=== PATIENT | female | born 1985 | race Caucasian/White ===

== ENCOUNTER 2021-02-06 10:22 | Emergency (ER) | payer OTHER, SELFPAY ==
--- NOTE | ~2021-02-06 | CT_ITS ---
EXAMINATION: CT HEAD WITHOUT CONTRAST CLINICAL INFORMATION: Headache, hypertension. COMPARISON: None TECHNIQUE: Contiguous axial imaging was performed from the skull base to vertex without intravenous administration of contrast. This CT examination was performed using dose optimization techniques as appropriate, variously including the following: *Automated exposure control *Adjustment of mA and/or kV according to patient size (this includes techniques or standardized protocols for targeted exams where dose is matched to indication/reason for exam; i.e. extremities or head) *Use of iterative reconstruction technique DLP: 676 mGy-cm FINDINGS: There is no evidence of acute intracranial hemorrhage or territorial infarction. No abnormal mass effect or midline shift is seen. Quevedo to white matter differentiation is well preserved. No extra-axial fluid collections are identified. There is dense pineal gland calcification The ventricles are normal in size. There is no abnormal attenuation within the brain parenchyma. The osseous structures and soft tissues are normal. The mastoid air cells and visualized portions of the paranasal sinuses are well aerated. CT/CT head/brain wo con IMPRESSION: No acute intracranial process seen.
--- NOTE | 2021-02-06 10:28 | ED.GENADULT ---
HPI - General Adult General Chief complaint: General Medical <Omlan Horton NP - Last Filed: 02/16/21 20:44> Stated complaint: HBP <Olman Horton NP - Last Filed: 02/16/21 20:44> Time Seen by Provider: 02/06/21 10:28 <Olman Horton NP - Last Filed: 02/16/21 20:44> Source: patient <Olman Horton NP - Last Filed: 02/16/21 20:44> Mode of arrival: ambulatory <Olman Horton NP - Last Filed: 02/16/21 20:44> Limitations: no limitations <Olman Horton NP - Last Filed: 02/16/21 20:44> History of Present Illness HPI narrative: With history of hypertension on several hypertension medications presenting with constellation symptoms including states she has had left eyelid has been swollen or past 1 day with slight redness also having some headache checked her blood pressure and her blood pressure was elevated at 1 70/130 today at work as well as she reports that she has had some increased anxiety recently due to family stressors and she has been moving to the area recently. She denies any fever or chills. No neck pain. No fall or injury., no worse headache, symptoms gradual. <Olman Horton NP - Last Filed: 02/16/21 20:44> Onset (ago): day(s) <Olman Horton NP - Last Filed: 02/16/21 20:44> Location: head <Olman Horton NP - Last Filed: 02/16/21 20:44> Radiation: non-radiation <Olman Horton NP - Last Filed: 02/16/21 20:44> Severity: moderate <Olman Horton NP - Last Filed: 02/16/21 20:44> Relieving factors: none <Olman Horton NP - Last Filed: 02/16/21 20:44> Exacerbating factors: none <Olman Horton NP - Last Filed: 02/16/21 20:44> Treatments prior to arrival: none <Olman Horton NP - Last Filed: 02/16/21 20:44> Related Data Home medications: Home Medications Medication Instructions Recorded Confirmed amlodipine 1 tab PO DAILY 02/06/21 02/06/21 losartan 1 tab PO DAILY 02/06/21 02/06/21 omeprazole 1 cap PO DAILY 02/06/21 02/06/21 Previous Rx's Medication Instructions Recorded cephalexin 500 mg PO BID 7 Days #14 cap 02/06/21 erythromycin 0.5 inch OPHTHALMIC (EYE) BID #1 g 02/06/21 <Olman Horton NP - Last Filed: 02/16/21 20:44> Allergies/adverse reactions: Allergies Allergy/AdvReac Type Severity Reaction Status Date / Time adhesive tape Allergy Rash Verified 02/06/21 10:35 latex Allergy Rash Verified 02/06/21 10:35 <Olman Horton NP - Last Filed: 02/16/21 20:44> Review of Systems Review of Systems: Constitutional: No Weight loss, No Fever, No Chills, No Night Sweats, No Fatigue, No Malaise ENT/Mouth: No Hearing loss, No Ear Pain, No Nasal Congestion, No Sinus Pain, No Hoarseness, No sore throat, No Rhinorrhea, No Swallowing Difficulty Eyes: No Eye Pain, + led Swelling, No Redness, No Foreign Body, No Discharge, No Vision Changes Cardiovascular: No Chest Pain, No SOB, No Dyspnea on Exertion, No Orthopnea, No Edema, No Palpitations Respiratory: No Cough, No Sputum, No Wheezing, No Smoke Exposure, No Dyspnea Gastrointestinal: No Nausea, No Vomiting, No Diarrhea, No Constipation, No abdominal Pain, No Hematochezia, No Melena Genitourinary: no irregular bleeding, No Dysuria, No Urinary Frequency, No Hematuria, No Urinary Incontinence, No Urgency, No Flank Pain, No Urinary Flow Changes, No Hesitancy Musculoskeletal: No joint pain, No Myalgias, No Joint Swelling Skin: No Skin Lesions, No rash Neuro: No Weakness, No Numbness, No Paresthesias, No Loss of Consciousness, No Dizziness, + Headache Psych: + Anxiety/Panic, No Depression, No SI/HI/AH/VH Heme/Lymph: No Bruising, No Bleeding,No Lymphadenopathy Endocrine: No Polyuria, No Polydipsia, No Temperature Intolerance <Olman Horton NP - Last Filed: 02/16/21 20:44> Yes all other systems are reviewed and are negative <Olman Horton NP - Last Filed: 02/16/21 20:44> [facility] Past Medical History Medical History: Medical History (Updated 02/07/21 @ 00:01 by Anjelica Kamara) HTN (hypertension) <Olman Horton NP - Last Filed: 02/16/21 20:44> Surgical History: Surgical History (Updated 02/06/21 @ 10:32 by David Bradford) H/O: hysterectomy <Olman Horton NP - Last Filed: 02/16/21 20:44> Social History Social History: Social History Smoked in Last 30 Days: No Use of substances other than those prescribed or required for medical reasons: No Advance Directives: No Advance Directives Information Provided: No <Olman Horton NP - Last Filed: 02/16/21 20:44> Physical Exam Vital Signs: Vital Signs: Last Vital Signs Temp 98.6 F 02/06/21 10:30 Pulse 70 02/06/21 12:05 Resp 16 02/06/21 11:47 BP 180/112 H 02/06/21 12:05 Pulse Ox 100 02/06/21 10:30 Body Mass Index 23.8 Reviewed <Olman Horton NP - Last Filed: 02/16/21 20:44> Vital Signs: Last Vital Signs Temp 98.6 F 02/06/21 10:30 Pulse 70 02/06/21 12:05 Resp 16 02/06/21 11:47 BP 180/112 H 02/06/21 12:05 Pulse Ox 100 02/06/21 10:30 Body Mass Index 23.8 <KARENA Vigil - Last Filed: 02/10/21 18:33> Const: General: cooperative, healthy appearing and anxious; No acute distress or intoxicated appearing <Olman Horton NP - Last Filed: 02/16/21 20:44> Nutritional Appearance: average body habitus <Olman Horton NP - Last Filed: 02/16/21 20:44> Orientation/consciousness: patient oriented x3 <Olman Horton NP - Last Filed: 02/16/21 20:44> HENMT: Head: Yes normal to inspection <Olman Horton NP - Last Filed: 02/16/21 20:44> Ears: hearing grossly normal bilaterally <Olman Horton NP - Last Filed: 02/16/21 20:44> Eyes: General: appearance normal, both eyes and all related structures <[facility] Last Filed: 02/16/21 20:44> Visual Granado: normal visual granado by confrontation <[facility] Last Filed: 02/16/21 20:44> Eyelids: Yes eyelid abnormality (Left very small hordeolum to the upper lid) <[facility] Last Filed: 02/16/21 20:44> Neck: Neck: Yes normal visual inspection, No positive Brudzinski's sign, No positive Kernig's sign and No tender <[facility] Last Filed: 02/16/21 20:44> Thyroid: Thyroid normal <[facility] Last Filed: 02/16/21 20:44> Chest: Chest palpation & inspection: normal inspection of the chest <[facility] Last Filed: 02/16/21 20:44> Resp: Effort & Inspection: normal respiratory effort <[facility] Last Filed: 02/16/21 20:44> Auscultation: clear to auscultation bilaterally <[facility] Last Filed: 02/16/21 20:44> Cardio: Jugular venous distension: no JVD <[facility] Last Filed: 02/16/21 20:44> Rhythm: regular rhythm <[facility] Last Filed: 02/16/21 20:44> Heart sounds: S1 normal heart sound present and S2 normal heart sound present <[facility] Last Filed: 02/16/21 20:44> GI: Inspection: Yes normal to inspection <[facility] Last Filed: 02/16/21 20:44> Percussion: Yes normal to percussion <[facility] - Last Filed: 02/16/21 20:44> Auscultation: normal bowel sounds <[facility] Last Filed: 02/16/21 20:44> : General: Yes no CVA tenderness <[facility] Last Filed: 02/16/21 20:44> Back/Spine/Pelvis: Back: no CVA tenderness <Olman Horton NP - Last Filed: 02/16/21 20:44> Skin: General skin exam: no rashes or lesions noted <Olman Horton NP - Last Filed: 02/16/21 20:44> Neuro: General: patient oriented x3 <Olman Horton NP - Last Filed: 02/16/21 20:44> Extrem: General: Yes normal to inspection <Olman Horton NP - Last Filed: 02/16/21 20:44> Course Reevaluation(s) Reevaluation #1: Labs reviewed headache resolved after Tylenol and lorazepam did require 1 low dose of Lopressor. UA positive for nitrate with WBC and positive bacteria will go ahead and treat this. She will take her blood pressure medications and will keep a blood pressure log and follow up closely with her GP. Otherwise head CT negative well nontoxic appearing. Much calmer now sister at bedside declined the need to speak to any social workers here. No SI or HI. Stable for discharge. <Olman Horton NP - Last Filed: 02/16/21 20:44> Medical Decision Making Lab Data Result diagrams: : 02/06/21 11:05 02/06/21 11:05 <Olman Horton NP - Last Filed: 02/16/21 20:44> Labs: Lab Results 02/06/21 02/06/21 02/06/21 Range/Units 11:05 11:05 11:05 WBC 7.3 (4.8-10.8) X10*3/uL RBC 5.16 (4.20-5.50) X10*6/uL Hgb 12.3 (12.0-16.0) g/dl Hct 40.6 (37-47) % MCV 78.7 L (80-98) fL MCH 23.8 L (27.0-33.0) pg MCHC 30.3 L (31.0-35.0) g/dl RDW 16.8 H (11.0-16.0) % Plt Count 457 H (160-400) X10*3/uL MPV 9.8 (9.4-12.3) fL Immature Gran % (Auto) 0.1 (0.0-0.4) % Neut % (Auto) 62.9 (45-73) % Lymph % (Auto) 28.6 (20-40) % Warrick % (Auto) 7.5 (2-11) % Eos % (Auto) 0.5 (0-4) % Baso % (Auto) 0.4 (0-2) % Lymph # (Auto) 2.1 (1.2-4.9) X10*3/uL Warrick # (Auto) 0.6 (0.1-1.2) X10*3/uL Eos # (Auto) 0.0 (0.0-0.4) X10*3/uL Baso # (Auto) 0.0 (0.0-0.2) X10*3/uL Abs Immat Gran (auto) 0.01 (0.00-0.03) X10*3/uL Absolute Neuts (auto) 4.6 (2.0-8.3) X10*3/uL Absolute Nucleated RBC 0.000 (0.0-0.012) X10*3/uL Nucleated RBC % (auto) 0.0 (0.0-0.2) /100WBC PT 12.4 (10.8-13.0) SEC INR 1.0 (0.9-1.1) APTT 35.0 (24.1-38.0) SEC Sodium 139 (135-145) mmol/L Potassium 4.3 (3.3-5.1) mmol/L Chloride 101 (96-108) mmol/L Carbon Dioxide 27 (22-29) mmol/L Anion Gap 15 (12-20) BUN 12 (9-16) mg/dL Creatinine 0.70 (0.5-1.4) mg/dL Estim Creat Clear Calc 122.4 Estimated GFR > 60 Random Glucose 98 (60-115) mg/dL Calcium 9.9 (8.4-10.2) mg/dL Total Bilirubin 0.5 (0.0-1.0) mg/dL AST 13 (5-31) U/L ALT 9 (0-31) U/L Alkaline Phosphatase 75 (39-117) U/L Total Protein 8.6 H (6.5-8.0) g/dL Albumin 5.2 H (3.5-5.0) g/dL Urine Color Urine Appearance Urine pH (5.0-8.0) Ur Specific Mobile (1.005-1.025) Urine Protein (NEG-TRACE) MG/DL Urine Glucose (UA) (NEG) MG/DL Urine Ketones (NEG) MG/DL Urine Blood (NEG) Urine Nitrite (NEG) Ur Leukocyte Esterase (NEG) Urine RBC (0) /HPF Urine WBC (0-4) /HPF Ur Squamous Epith Cells /LPF Urine Bacteria /LPF Urine Mucus /LPF Urine Test (NEGATIVE) 02/06/21 02/06/21 Range/Units 11:05 11:05 WBC (4.8-10.8) X10*3/uL RBC (4.20-5.50) X10*6/uL Hgb (12.0-16.0) g/dl Hct (37-47) % MCV (80-98) fL MCH (27.0-33.0) pg MCHC (31.0-35.0) g/dl RDW (11.0-16.0) % Plt Count (160-400) X10*3/uL MPV (9.4-12.3) fL Immature Gran % (Auto) (0.0-0.4) % Neut % (Auto) (45-73) % Lymph % (Auto) (20-40) % Warrick % (Auto) (2-11) % Eos % (Auto) (0-4) % Baso % (Auto) (0-2) % Lymph # (Auto) (1.2-4.9) X10*3/uL Warrick # (Auto) (0.1-1.2) X10*3/uL Eos # (Auto) (0.0-0.4) X10*3/uL Baso # (Auto) (0.0-0.2) X10*3/uL Abs Immat Gran (auto) (0.00-0.03) X10*3/uL Absolute Neuts (auto) (2.0-8.3) X10*3/uL Absolute Nucleated RBC (0.0-0.012) X10*3/uL Nucleated RBC % (auto) (0.0-0.2) /100WBC PT (10.8-13.0) SEC INR (0.9-1.1) APTT (24.1-38.0) SEC Sodium (135-145) mmol/L Potassium (3.3-5.1) mmol/L Chloride (96-108) mmol/L Carbon Dioxide (22-29) mmol/L Anion Gap (12-20) BUN (9-16) mg/dL Creatinine (0.5-1.4) mg/dL Estim Creat Clear Calc Estimated GFR Random Glucose (60-115) mg/dL Calcium (8.4-10.2) mg/dL Total Bilirubin (0.0-1.0) mg/dL AST (5-31) U/L ALT (0-31) U/L Alkaline Phosphatase (39-117) U/L Total Protein (6.5-8.0) g/dL Albumin (3.5-5.0) g/dL Urine Color YELLOW Urine Appearance CLOUDY Urine pH 7.0 (5.0-8.0) Ur Specific Mobile 1.020 (1.005-1.025) Urine Protein NEG (NEG-TRACE) MG/DL Urine Glucose (UA) NEG (NEG) MG/DL Urine Ketones NEG (NEG) MG/DL Urine Blood TRACE (NEG) Urine Nitrite POS H (NEG) Ur Leukocyte Esterase NEG (NEG) Urine RBC 0-2 (0) /HPF Urine WBC 5-9 H (0-4) /HPF Ur Squamous Epith Cells 2+ /LPF Urine Bacteria 3+ /LPF Urine Mucus 2+ /LPF Urine Test NEGATIVE (NEGATIVE) <Olman Horton NP - Last Filed: 02/16/21 20:44> Lab Results 02/06/21 02/06/21 02/06/21 Range/Units 11:05 11:05 11:05 WBC 7.3 (4.8-10.8) X10*3/uL RBC 5.16 (4.20-5.50) X10*6/uL Hgb 12.3 (12.0-16.0) g/dl Hct 40.6 (37-47) % MCV 78.7 L (80-98) fL MCH 23.8 L (27.0-33.0) pg MCHC 30.3 L (31.0-35.0) g/dl RDW 16.8 H (11.0-16.0) % Plt Count 457 H (160-400) X10*3/uL MPV 9.8 (9.4-12.3) fL Immature Gran % (Auto) 0.1 (0.0-0.4) % Neut % (Auto) 62.9 (45-73) % Lymph % (Auto) 28.6 (20-40) % Warrick % (Auto) 7.5 (2-11) % Eos % (Auto) 0.5 (0-4) % Baso % (Auto) 0.4 (0-2) % Lymph # (Auto) 2.1 (1.2-4.9) X10*3/uL Warrick # (Auto) 0.6 (0.1-1.2) X10*3/uL Eos # (Auto) 0.0 (0.0-0.4) X10*3/uL Baso # (Auto) 0.0 (0.0-0.2) X10*3/uL Abs Immat Gran (auto) 0.01 (0.00-0.03) X10*3/uL Absolute Neuts (auto) 4.6 (2.0-8.3) X10*3/uL Absolute Nucleated RBC 0.000 (0.0-0.012) X10*3/uL Nucleated RBC % (auto) 0.0 (0.0-0.2) /100WBC PT 12.4 (10.8-13.0) SEC INR 1.0 (0.9-1.1) APTT 35.0 (24.1-38.0) SEC Sodium 139 (135-145) mmol/L Potassium 4.3 (3.3-5.1) mmol/L Chloride 101 (96-108) mmol/L Carbon Dioxide 27 (22-29) mmol/L Anion Gap 15 (12-20) BUN 12 (9-16) mg/dL Creatinine 0.70 (0.5-1.4) mg/dL Estim Creat Clear Calc 122.4 Estimated GFR > 60 Random Glucose 98 (60-115) mg/dL Calcium 9.9 (8.4-10.2) mg/dL Total Bilirubin 0.5 (0.0-1.0) mg/dL AST 13 (5-31) U/L ALT 9 (0-31) U/L Alkaline Phosphatase 75 (39-117) U/L Total Protein 8.6 H (6.5-8.0) g/dL Albumin 5.2 H (3.5-5.0) g/dL Urine Color Urine Appearance Urine pH (5.0-8.0) Ur Specific Mobile (1.005-1.025) Urine Protein (NEG-TRACE) MG/DL Urine Glucose (UA) (NEG) MG/DL Urine Ketones (NEG) MG/DL Urine Blood (NEG) Urine Nitrite (NEG) Ur Leukocyte Esterase (NEG) Urine RBC (0) /HPF Urine WBC (0-4) /HPF Ur Squamous Epith Cells /LPF Urine Bacteria /LPF Urine Mucus /LPF Urine Test (NEGATIVE) 02/06/21 02/06/21 Range/Units 11:05 11:05 WBC (4.8-10.8) X10*3/uL RBC (4.20-5.50) X10*6/uL Hgb (12.0-16.0) g/dl Hct (37-47) % MCV (80-98) fL MCH (27.0-33.0) pg MCHC (31.0-35.0) g/dl RDW (11.0-16.0) % Plt Count (160-400) X10*3/uL MPV (9.4-12.3) fL Immature Gran % (Auto) (0.0-0.4) % Neut % (Auto) (45-73) % Lymph % (Auto) (20-40) % Warrick % (Auto) (2-11) % Eos % (Auto) (0-4) % Baso % (Auto) (0-2) % Lymph # (Auto) (1.2-4.9) X10*3/uL Warrick # (Auto) (0.1-1.2) X10*3/uL Eos # (Auto) (0.0-0.4) X10*3/uL Baso # (Auto) (0.0-0.2) X10*3/uL Abs Immat Gran (auto) (0.00-0.03) X10*3/uL Absolute Neuts (auto) (2.0-8.3) X10*3/uL Absolute Nucleated RBC (0.0-0.012) X10*3/uL Nucleated RBC % (auto) (0.0-0.2) /100WBC PT (10.8-13.0) SEC INR (0.9-1.1) APTT (24.1-38.0) SEC Sodium (135-145) mmol/L Potassium (3.3-5.1) mmol/L Chloride (96-108) mmol/L Carbon Dioxide (22-29) mmol/L Anion Gap (12-20) BUN (9-16) mg/dL Creatinine (0.5-1.4) mg/dL Estim Creat Clear Calc Estimated GFR Random Glucose (60-115) mg/dL Calcium (8.4-10.2) mg/dL Total Bilirubin (0.0-1.0) mg/dL AST (5-31) U/L ALT (0-31) U/L Alkaline Phosphatase (39-117) U/L Total Protein (6.5-8.0) g/dL Albumin (3.5-5.0) g/dL Urine Color YELLOW Urine Appearance CLOUDY Urine pH 7.0 (5.0-8.0) Ur Specific Mobile 1.020 (1.005-1.025) Urine Protein NEG (NEG-TRACE) MG/DL Urine Glucose (UA) NEG (NEG) MG/DL Urine Ketones NEG (NEG) MG/DL Urine Blood TRACE (NEG) Urine Nitrite POS H (NEG) Ur Leukocyte Esterase NEG (NEG) Urine RBC 0-2 (0) /HPF Urine WBC 5-9 H (0-4) /HPF Ur Squamous Epith Cells 2+ /LPF Urine Bacteria 3+ /LPF Urine Mucus 2+ /LPF Urine Test NEGATIVE (NEGATIVE) <KARENA Vigil - Last Filed: 02/10/21 18:33> Imaging Data Head CT: Radiologist's impression: [address] [id number] Scan ReportSigned Patient: Rosa Valentine DMR#: [id number]: [id number]:[id number]/Sex: 35 / FADM Date: 02/06/21Loc: [address]: Ordering Physician: Olman Horton NP Date of Service: 02/06/21 Procedure(s): CT head/brain wo con Accession Number(s): [id number] cc: Olman Horton NP~ EXAMINATION: CT HEAD WITHOUT CONTRAST CLINICAL INFORMATION: Headache, hypertension. COMPARISON: None TECHNIQUE: Contiguous axial imaging was performed from the skull base to vertex without intravenous administration of contrast. This CT examination was performed using dose optimization techniques as appropriate, variously including the following: *Automated exposure control *Adjustment of mA and/or kV according to patient size (this includes techniques or standardized protocols for targeted exams where dose is matched to indication/reason for exam; i.e. extremities or head) *Use of iterative reconstruction technique DLP: 676 mGy-cm FINDINGS: There is no evidence of acute intracranial hemorrhage or territorial infarction. No abnormal mass effect or midline shift is seen. Quevedo to white matter differentiation is well preserved. No extra-axial fluid collections are identified. There is dense pineal gland calcification The ventricles are normal in size. There is no abnormal attenuation within the brain parenchyma. The osseous structures and soft tissues are normal. The mastoid air cells and visualized portions of the paranasal sinuses are well aerated. CT/CT head/brain wo con IMPRESSION: No acute intracranial process seen. Dictated By:RAFFI PEPPER MDSigned By:<Electronically signed by RAFFI PEPPER MD in OV>02/06/21 1138 DD/ 1041TD/TT: Inventory Specialist Manager: MICHAEL <Olman Horton NP - Last Filed: 02/16/21 20:44> Discharge Plan Discharge Clinical Impression: Hypertension, Headache, External hordeolum, Anxiety, UTI (urinary tract infection) <Olman Horton NP - Last Filed: 02/16/21 20:44> Patient Disposition: Home, Self-Care <Olman Horton NP - Last Filed: 02/16/21 20:44> Instructions: Hypertension (ED), Anxiolysis in Adults (ED) <Olman Horton NP - Last Filed: 02/16/21 20:44> Additional Instructions: Home care as instructed Return if any concerns or worsening symptoms Keep a blood pressure log Follow-up with her primary care doctor in 2-3 days for recheck Return if any concerns or worsening symptoms Thank you <Olman Horton NP - Last Filed: 02/16/21 20:44> Prescriptions: New cephalexin 500 mg capsule 500 mg PO BID 7 Days Qty: 14 RF: 0 erythromycin 5 mg/gram (0.5 %) ointment 0.5 inch ophthalmic (eye) BID Qty: 1 RF: 1 No Action amlodipine 10 mg tablet 1 tab PO DAILY RF: 0 omeprazole 20 mg capsule,delayed release(DR/EC) 1 cap PO DAILY RF: 0 losartan 100 mg tablet 1 tab PO DAILY RF: 0 <Olman Horton NP - Last Filed: 02/16/21 20:44> Referrals: Physician,None [Primary Care Provider] - 2 days (Your primary care doctor) <Olman Horton NP - Last Filed: 02/16/21 20:44> Stand Alone Forms: Work/School Release <Olman Horton NP - Last Filed: 02/16/21 20:44> Interventions: ED Discharge Assessment Last Done: 02/06/21 14:12 <Olman Horton NP - Last Filed: 02/16/21 20:44> Discharge Date/Time: 02/06/21 14:12 <Olman Horton NP - Last Filed: 02/16/21 20:44>
[2021-02-06 10:30] VITALS: BP 212/105; PULSE 76; RESP 16; TEMP 37; O2SAT 100; BMI 23.8
[2021-02-06 11:10] LABS: MANUAL DIFF FLAG NO
[2021-02-06] MEDS: Acetaminophen 325 MG TABLET 650 MG PO (11:12)
[2021-02-06 11:13] LABS: Basophils Percent Auto 0.4 % (0-2); Eosinophils Percent Auto 0.5 % (0-4); Hematocrit 40.6 % (37-47); Hemoglobin 12.3 g/dl (12.0-16.0); Imm Gran Abs Auto 0.01 X10*3/uL (0.00-0.03); Imm Gran Pct Auto 0.1 % (0.0-0.4); Lymphocytes Absolute Auto 2.1 X10*3/uL (1.2-4.9); Lymphocytes Percent Auto 28.6 % (20-40); Mean Corpuscular HGB Conc 30.3 g/dl (31.0-35.0); Mean Corpuscular Hemoglobin 23.8 pg (27.0-33.0); Mean Corpuscular Volume 78.7 fL (80-98); Mean Platelet Volume 9.8 fL (9.4-12.3); Monocytes Absolute Auto 0.6 X10*3/uL (0.1-1.2); Monocytes Percent Auto 7.5 % (2-11); Neutrophils Absolute Auto 4.6 X10*3/uL (2.0-8.3); Neutrophils Percent Auto 62.9 % (45-73); Platelet Count 457 X10*3/uL (160-400); Red Blood Count 5.16 X10*6/uL (4.20-5.50); Red Cell Distribution Width 16.8 % (11.0-16.0); White Blood Count 7.3 X10*3/uL (4.8-10.8)
[2021-02-06] MEDS: LORazepam 2 MG/ML VIAL 0.5 MG IVPUSH (11:13)
[2021-02-06 11:17] LABS: Glucose Urine UA NEG (NEG); Leukocyte Esterase Urine NEG (NEG); Nitrite Urine POS (NEG); UACC Culture Trigger YES; Urine Blood TRACE (NEG); Urine Ketones NEG (NEG); Urine Protein NEG (NEG-TRACE)
[2021-02-06 11:18] LABS: Appearance Urine CLOUDY; Color Urine YELLOW; Prothrombin Time 12.4 SEC (10.8-13.0)
[2021-02-06 11:19] LABS: UPreg QC Valid YES; Urine Pregnancy NEGATIVE (NEGATIVE)
[2021-02-06 11:27] LABS: Bacteria Urine 3+ /LPF; Mucus Urine 2+ /LPF; RBC Urine 0-2 /HPF (0); Squamous Epithelial Cell Urine 2+ /LPF; UACC CULT YES
[2021-02-06 11:35] LABS: Alanine Aminotransferase 9 U/L (0-31); Albumin Level 5.2 g/dL (3.5-5.0); Alkaline Phosphatase 75 U/L (39-117); Anion Gap 15 (12-20); Aspartate Amino Transferase 13 U/L (5-31); Bilirubin Total 0.5 mg/dL (0.0-1.0); Blood Urea Nitrogen 12 mg/dL (9-16); Calcium 9.9 mg/dL (8.4-10.2); Carbon Dioxide 27 mmol/L (22-29); Chloride 101 mmol/L (96-108); Creatinine Clr Calc Pharmacy 122.4; Estimated Glomerular Filt Rate > 60; Glucose Random 98 mg/dL (60-115); Potassium 4.3 mmol/L (3.3-5.1); Sodium 139 mmol/L (135-145); Total Protein 8.6 g/dL (6.5-8.0)
[2021-02-06 11:47] VITALS: BP 180/112; PULSE 70; RESP 16
[2021-02-06 12:05] VITALS: BP 180/112; PULSE 70
[2021-02-06] MEDS: ondansetron HCL 4 MG/2 ML VIAL IVPUSH (12:05)
[2021-02-06] MEDS: Labetalol HCL 100 MG/20 ML VIAL IVPUSH (12:05)
--- NOTE | 2021-02-06 12:14 | PC.NURSE ---
Pt states headache has improved, but now states she has mild nausea. BP remains elevated at 180/112. Olman, [employer] made aware, and provided orders. Pt medicated per emar.
== END 2021-02-06 14:12 | disposition home or self-care (01) ==
PROVIDERS: Nurse Practitioner Primary Care; Emergency Provider Emergency Medicine
DX: R51.9 Headache, unspecified (principal); I10 Essential (primary) hypertension; N39.0 Urinary tract infection, site not specified; H00.019 Hordeolum externum unspecified eye, unspecified eyelid; F41.9 Anxiety disorder, unspecified
CPT/HCPCS: 36415; 70450; 80053; 81001; 81025; 85025; 85610; 85730; 87086; 87088; 87186; 96374; 96375; 99284; J2060; J2405

== ENCOUNTER 2021-05-01 08:10 | Emergency (ER) | payer MEDICAID, SELFPAY ==
--- NOTE | ~2021-05-01 | US_ITS ---
EXAMINATION: US VENOUS WITH DOPPLER UPPER EXTREMITY, LEFT CLINICAL INFORMATION: Axillary swelling status post Pfizer vaccine on 04/28/2021. COMPARISON: None TECHNIQUE: Ultrasound of the upper extremity is performed using compression sonography and color and pulse Doppler flow with assessment of augmentation of flow. There is also imaging and Doppler assessment of the jugular and subclavian veins. Spectral analysis with color-flow imaging is performed. FINDINGS: Respiratory variation, normal compression, and augmented flow are noted throughout the upper extremity including the axillary, brachial, cubital, and radial and ulnar veins. There is normal flow in the internal jugular and subclavian veins. There is no visible deep or superficial thrombophlebitis Axillary lymph nodes are present, the largest measuring 1.9 x 0.9 x 2.6 cm. They have normal morphology with fatty magaly. If the patient's symptoms progress, a followup ultrasound in 5-7 days might be of value to exclude proximal propagation from a nonvisualized distal arm vein. US/US venous duplex UE LT IMPRESSION: No DVT demonstrated in the left upper extremity. Mildly prominent left axillary lymph nodes.
[2021-05-01 08:34] VITALS: BP 167/87; PULSE 79; RESP 14; TEMP 36.6; O2SAT 100; BMI 26.6
--- NOTE | 2021-05-01 09:34 | ED_ITS ---
HPI - Extremity Problem General Chief complaint: Extremity Injury, Upper Stated complaint: abscess Time Seen by Provider: 05/01/21 08:34 Source: patient Mode of arrival: ambulatory Limitations: no limitations History of Present Illness HPI Narrative: Patient presents to ED swelling in left axillary/lump for the past 3 days. Patient received phizer vaccine on Wednesday and then noticed large swelling mass and left axillary that began on Wednesday. Patient denies any chest pain or shortness of breath. Patient states no fever or chills. Related Data Home Medications Medication Instructions Recorded Confirmed amlodipine 1 tab PO DAILY 02/06/21 02/06/21 losartan 1 tab PO DAILY 02/06/21 02/06/21 omeprazole 1 cap PO DAILY 02/06/21 02/06/21 Previous Rx's Medication Instructions Recorded cephalexin 500 mg PO BID 7 Days #14 cap 02/06/21 erythromycin 0.5 inch OPHTHALMIC (EYE) BID #1 g 02/06/21 Allergies Allergy/AdvReac Type Severity Reaction Status Date / Time adhesive tape Allergy Rash Verified 02/06/21 10:35 latex Allergy Rash Verified 02/06/21 10:35 Review of Systems Review of Systems: Yes all other systems are reviewed and are negative Constitutional: Constitutional: Reports as per HPI and Reports no additional constitutional complaints Eyes: Eyes: Reports as per HPI and Reports no additional eye complaints ENT: Reports system reviewed and no additional complaints, except as documented and Reports as per HPI Cardiovascular: Cardiovascular: Reports as per HPI and Reports no additional cardiovascular complaints Respiratory: Respiratory: Reports as per HPI and Reports no additional respiratory complaints Gastrointestinal: Gastrointestinal: Reports as per HPI and Reports no additional gastrointestinal complaints Genitourinary: Genitourinary: Reports no additional female genitourinary complaints and Reports as per HPI Musculoskeletal: Musculoskeletal: Reports no additional musculoskeletal complaints and Reports as per HPI Comments: Left axillary swelling Neurologic: Reports system reviewed and no additional complaints, except as documented and Reports as per HPI Psychiatric: Psychiatric: Reports no additional psychiatric complaints and Reports as per HPI PMF Past Medical History Medical History (Updated 05/01/21 @ 11:33 by KARENA Pink) HTN (hypertension) Surgical History (Updated 02/06/21 @ 10:32 by Daivd Bradford) H/O: hysterectomy Social History Social History Advance Directives: No Advance Directives Information Provided: Yes Patient : No Physical Exam Vital Signs: Vital Signs: Last Vital Signs Temp 97.9 F 05/01/21 08:34 Pulse 79 05/01/21 08:34 Resp 14 05/01/21 08:34 BP 167/87 H 05/01/21 08:34 Pulse Ox 100 05/01/21 08:34 Body Mass Index 26.6 Const: General: cooperative, healthy appearing, comfortable, no acute distress, well developed, alert, awake and Physically active Orientation/consciousness: patient oriented x3 HENMT: Head: Yes normal to inspection, Yes No palpable skull fracture present, Yes normocephalic, Yes atraumatic and No abrasion Eyes: General: appearance normal, both eyes and all related structures Neck: Neck: Yes normal visual inspection, Yes full ROM, Yes no lymphadenopathy, Yes no meningeal signs, Yes trachea midline, Yes supple and No tender Chest: Chest palpation & inspection: normal inspection of the chest and normal palpation of entire chest wall Resp: Effort & Inspection: normal respiratory effort and able to speak in complete sentences Cardio: Jugular venous distension: no JVD Heart sounds: S1 normal heart sound present and S2 normal heart sound present GI: Inspection: Yes normal to inspection and No abdominal wall ecchymosis Palpation (GI): Soft to palpation, not firm, nontender, no guarding and not rigid : General: No CVA tenderness and Yes no CVA tenderness Back/Spine/Pelvis: Back: no CVA tenderness, No CVA tenderness and No back tenderness Skin: General skin exam: no rashes or lesions noted and elasticity normal Neuro: General: patient oriented x3, gait normal, no meningeal signs and CN's II-XI intact bilaterally Cranial nerves: Yes CN's II-XII intact bilaterally Extrem: Other: Left upper extremity; positive for large swollen mass in left axillary that is non erythematoous, soft, and non fluctuant. Mildly tender. Negative for hard mass. Self extremity negative for swelling or redness. Palpable pulses intact. Neuro/motor exam intact. Bedside ultrasound was performed at area of swelling and negative for cobblestone to indicate cellulitis and negative for pus collection to indicate abscess Psych: Appearance: grossly normal and well kempt Course Course Course Narrative: Not suspecting abscess. Maybe lymphadenopathy although soft and not hard. Due to large size will make sure patient is not having no blood clot after having phizer injection. Patient sent for ultrasound. Reevaluation(s) Reevaluation #1: Ultrasound negative for blood clot. Ultrasound confirms enlarged lymph nodes. Diagnosis lymphadenopathy from COVID vaccine Time: 11:31 MDM - Extremity (Nontraumatic) MDM Narrative Medical decision making narrative: Axillary lymphadenopathy Discharge Plan Discharge Clinical Impression: Axillary adenopathy Patient Disposition: Home, Self-Care Instructions: Lymphadenopathy (ED) Additional Instructions: Ultrasound came back negative for blood clot and left upper extremity. Ultrasound positive for enlarged lymph nodes and axillary. Axillary lymphadenopathy caused by COVID 19 vaccine. This is a common side effect. Return to the ED for left upper extremity swelling, redness, red streaks, chest pain, shortness of breath, warmth of upper extremity, colonies of upper extremity, bluish black discoloration of fingers, or any other concerning symptoms. Please follow-up with PCP Prescriptions: No Action amlodipine 10 mg tablet 1 tab PO DAILY RF: 0 omeprazole 20 mg capsule,delayed release(DR/EC) 1 cap PO DAILY RF: 0 losartan 100 mg tablet 1 tab PO DAILY RF: 0 cephalexin 500 mg capsule 500 mg PO BID 7 Days Qty: 14 RF: 0 erythromycin 5 mg/gram (0.5 %) ointment 0.5 inch ophthalmic (eye) BID Qty: 1 RF: 1 Stand Alone Forms: Work/School Release Print Language: Singaporean
== END 2021-05-01 11:39 | disposition home or self-care (01) ==
PROVIDERS: Emergency Provider Emergency Medicine
DX: R59.0 Localized enlarged lymph nodes (principal); I10 Essential (primary) hypertension; Z79.899 Other long term (current) drug therapy
CPT/HCPCS: 93971; 99283; 99284

== ENCOUNTER 2021-12-29 15:29 | Emergency (ER) | payer MEDICAID, SELFPAY ==
--- NOTE | ~2021-12-29 | CT_ITS ---
EXAMINATION: CT ABDOMEN AND PELVIS WITHOUT CONTRAST CLINICAL INFORMATION: Left flank pain. Kidney stone. COMPARISON: None TECHNIQUE: Multidetector volumetric imaging was performed from the superior aspect of the liver through the pubic symphysis. Sagittal and coronal reformatted images were obtained on the technologist's workstation. This CT examination was performed using dose optimization techniques as appropriate, variously including the following: *Automated exposure control *Adjustment of mA and/or kV according to patient size (this includes techniques or standardized protocols for targeted exams where dose is matched to indication/reason for exam; i.e. extremities or head) *Use of iterative reconstruction technique DLP: 582 mGy-cm FINDINGS: LUNG BASES: The visualized lung bases are unremarkable. LIVER, GALLBLADDER, AND BILIARY TREE: Mild hepatomegaly. Right lobe liver measures 22 cm superior-inferior. There is no focal liver lesion. The liver shape is normal. The contour of the liver is smooth. There is no bile duct dilatation. The gallbladder is unremarkable with no evidence of radiopaque gallstones, gallbladder wall thickening, or obvious pericholecystic inflammatory changes. PANCREAS: Unremarkable. SPLEEN: Unremarkable. ADRENAL GLANDS: Unremarkable. KIDNEYS AND URETERS: Bilateral renal stones. There are multiple stones in each kidney. Most the stones are small in the 1 to 3 mm size range. The right kidney there are at least 9 stones the largest in the midpole measuring 5 mm. In the left kidney there are at least 10 stones. Largest stone measures 7 mm is in the lower pole.. There is no hydronephrosis. There are no ureteral calculi. Both kidneys are normal in size and contour with normal cortical thickness. No edema around the kidneys or the collecting system of either kidney. BLADDER: Unremarkable. GASTROINTESTINAL TRACT: The small and large bowel are unremarkable. The appendix is unremarkable. ABDOMINAL WALL: No significant hernia is appreciated. LYMPH NODES: Normal. VASCULAR: Unremarkable. PELVIC VISCERA: Unremarkable. OSSEOUS STRUCTURES: Unremarkable. CT/CT abdomen pelvis wo con IMPRESSION: 1. Bilateral nonobstructive renal stones. There are no ureteral stones. There is no hydronephrosis. No bladder calculus. 2. Mild hepatomegaly. No focal liver lesion. Fleischner guidelines were followed.
[2021-12-29 15:38] VITALS: BP 189/120; PULSE 86; RESP 16; TEMP 36.8; O2SAT 99; BMI 23.9
[2021-12-29 16:34] LABS: MANUAL DIFF FLAG NO
[2021-12-29 16:36] LABS: Basophils Percent Auto 0.3 % (0-2); Eosinophils Absolute Auto 0.1 X10*3/uL (0.0-0.4); Hematocrit 39.7 % (37.0-47.0); Hemoglobin 13.2 g/dl (12.0-16.0); Imm Gran Abs Auto 0.01 X10*3/uL (0.00-0.03); Imm Gran Pct Auto 0.1 % (0.0-0.4); Lymphocytes Absolute Auto 2.2 X10*3/uL (1.2-4.9); Lymphocytes Percent Auto 33.4 % (20-40); Mean Corpuscular HGB Conc 33.2 g/dl (31.0-35.0); Mean Corpuscular Volume 87.3 fL (80.0-98.0); Mean Platelet Volume 9.8 fL (9.4-12.3); Monocytes Absolute Auto 0.4 X10*3/uL (0.1-1.2); Monocytes Percent Auto 6.6 % (2-11); Neutrophils Absolute Auto 3.9 x10*3/uL (2.0-8.3); Neutrophils Percent Auto 58.6 % (45-73); Platelet Count 358 X10*3/uL (160-400); Red Blood Count 4.55 X10*6/uL (4.20-5.50); Red Cell Distribution Width 12.9 % (11.0-16.0); White Blood Count 6.7 X10*3/uL (4.8-10.8)
[2021-12-29 16:53] LABS: Alanine Aminotransferase 15 U/L (0-31); Albumin Level 4.8 g/dL (3.5-5.0); Alkaline Phosphatase 67 U/L (39-117); Anion Gap 11 (12-20); Aspartate Amino Transferase 12 U/L (5-31); Bilirubin Total 0.3 mg/dL (0.0-1.0); Blood Urea Nitrogen 15 mg/dL (9-16); Calcium 9.7 mg/dL (8.4-10.2); Carbon Dioxide 26 mmol/L (22-29); Chloride 105 mmol/L (96-108); Creatinine Clr Calc Pharmacy 103.9; Estimated Glomerular Filt Rate > 60; Glucose Random 95 mg/dL (60-115); Potassium 3.9 mmol/L (3.3-5.1); Sodium 138 mmol/L (135-145); Total Protein 8.1 g/dL (6.5-8.0)
--- NOTE | 2021-12-29 20:45 | ED.GENADULT ---
HPI - General Adult General Chief complaint: General Medical Stated complaint: left side pain Time Seen by Provider: 12/29/21 20:45 Source: patient Mode of arrival: ambulatory Limitations: no limitations History of Present Illness HPI narrative: Patient with no history of significant abdominal problems notice all of a sudden pain in the left flank region in the left upper abdomen since afternoon today associated with nausea, vomited 1 time no fever no chills no urine symptoms no diarrhea patient never had similar pain in the past Related Data Home Medications Medication Instructions Recorded Confirmed amlodipine 10 mg tablet 1 tab PO DAILY 02/06/21 02/06/21 losartan 100 mg tablet 1 tab PO DAILY 02/06/21 02/06/21 omeprazole 20 mg capsule,delayed 1 cap PO DAILY 02/06/21 02/06/21 release Previous Rx's Medication Instructions Recorded cephalexin 500 mg capsule 500 mg PO BID 7 Days #14 cap 02/06/21 erythromycin 5 mg/gram (0.5 %) eye 0.5 inch OPHTHALMIC (EYE) BID #1 g 02/06/21 ointment tramadol 50 mg tablet 50 mg PO Q6H PRN #20 tab 12/29/21 Allergies Allergy/AdvReac Type Severity Reaction Status Date / Time adhesive tape Allergy Rash Verified 02/06/21 10:35 latex Allergy Rash Verified 02/06/21 10:35 Review of Systems Review of Systems: Yes all other systems are reviewed and are negative [facility] Past Medical History Medical History HTN (hypertension) Surgical History H/O: hysterectomy Social History Social History Advance Directives: No Advance Directives Information Provided: Yes Physical Exam ED Vital Signs: Vital Signs - 24 hr 12/29/21 15:38 12/29/21 22:21 Temperature 98.2 F 97.0 F Pulse Rate 86 65 Respiratory Rate 16 16 Blood Pressure 189/120 H 142/85 H Pulse Oximetry 99 96 BMI result Body Mass Index 23.9 Appearance: Alert. Oriented X3. Mild distress ENT: Pharynx normal. Oral Mucosa moist Neck: Normal inspection. Neck supple. CVS: Normal heart rate and rhythm. Pulses normal. Respiratory: No respiratory distress. Equal air entry bilateral, no wheezing/rales/rhonchi Abdomen: Soft , mild tenderness left upper quadrant Bowel sounds are present, no mass palpable, L CVA tenderness + Skin: Skin warm and dry. Normal skin color. Normal skin turgor. Extremities: No lower extremity edema. No calf tenderness Neuro: Oriented X 3. Medical Decision Making MDM Narrative Medical decision making narrative: Patient with left renal colic workup is negative except CT scan showing multiple stones bilateral likely patient passed a stone. At this time patient is pain-free feeling much better will discharge patient home Lab Data Lab results reviewed: Yes I reviewed the patient's lab results. Result diagrams: 12/29/21 16:31 12/29/21 16:32 Labs: Lab Results 12/29/21 12/29/21 12/29/21 Range/Units 16:31 16:32 21:42 WBC 6.7 (4.8-10.8) X10*3/uL RBC 4.55 (4.20-5.50) X10*6/uL Hgb 13.2 (12.0-16.0) g/dl Hct 39.7 (37.0-47.0) % MCV 87.3 (80.0-98.0) fL MCH 29.0 (27.0-33.0) pg MCHC 33.2 (31.0-35.0) g/dl RDW 12.9 (11.0-16.0) % Plt Count 358 (160-400) X10*3/uL MPV 9.8 (9.4-12.3) fL Immature Gran % (Auto) 0.1 (0.0-0.4) % Neut % (Auto) 58.6 (45-73) % Lymph % (Auto) 33.4 (20-40) % [place] % (Auto) 6.6 (2-11) % Eos % (Auto) 1.0 (0-4) % Baso % (Auto) 0.3 (0-2) % Lymph # (Auto) 2.2 (1.2-4.9) X10*3/uL [place] # (Auto) 0.4 (0.1-1.2) X10*3/uL Eos # (Auto) 0.1 (0.0-0.4) X10*3/uL Baso # (Auto) 0.0 (0.0-0.2) X10*3/uL Abs Immat Gran (auto) 0.01 (0.00-0.03) X10*3/uL Absolute Neuts (auto) 3.9 (2.0-8.3) x10*3/uL Absolute Nucleated RBC 0.000 (0.0-0.012) X10*3/uL Nucleated RBC % (auto) 0.0 (0.0-0.2) /100WBC Sodium 138 (135-145) mmol/L Potassium 3.9 (3.3-5.1) mmol/L Chloride 105 (96-108) mmol/L Carbon Dioxide 26 (22-29) mmol/L Anion Gap 11 L (12-20) BUN 15 (9-16) mg/dL Creatinine 0.79 (0.5-1.4) mg/dL Estim Creat Clear Calc 103.9 Estimated GFR > 60 Random Glucose 95 (60-115) mg/dL Calcium 9.7 (8.4-10.2) mg/dL Total Bilirubin 0.3 (0.0-1.0) mg/dL AST 12 (5-31) U/L ALT 15 (0-31) U/L Alkaline Phosphatase 67 (39-117) U/L Total Protein 8.1 H (6.5-8.0) g/dL Albumin 4.8 (3.5-5.0) g/dL Urine Color YELLOW Urine Appearance HAZY Urine pH 6.0 (5.0-8.0) Ur Specific Earle >= 1.030 H (1.005-1.025) Urine Protein TRACE (NEG-TRACE) MG/DL Urine Glucose (UA) NEG (NEG) MG/DL Urine Ketones NEG (NEG) MG/DL Urine Blood NEG (NEG) Urine Nitrite NEG (NEG) Ur Leukocyte Esterase NEG (NEG) Discharge Plan Discharge Clinical Impression: Renal colic on left side Patient Disposition: Home, Self-Care Instructions: Renal Colic (ED) Additional Instructions: Drink plenty of fluids Pain medication as advised Follow-up with urologist Diet as advised Prescriptions: New tramadol 50 mg tablet 50 mg PO Q6H PRN (Reason: pain) Qty: 20 0RF No Action amlodipine 10 mg tablet 1 tab PO DAILY 0RF omeprazole 20 mg capsule,delayed release(DR/EC) 1 cap PO DAILY 0RF losartan 100 mg tablet 1 tab PO DAILY 0RF cephalexin 500 mg capsule 500 mg PO BID 7 Days Qty: 14 0RF erythromycin 5 mg/gram (0.5 %) ointment 0.5 inch ophthalmic (eye) BID Qty: 1 1RF Referrals: Fletcher Goldstein MD [Physician] - 1 week
[2021-12-29] MEDS: Morphine Sulfate 4 MG/ML CARTRIDGE IVPUSH (21:45)
[2021-12-29] MEDS: 0.9 % Sodium Chloride 1,000 ML 999 ML IV (21:45)
[2021-12-29] MEDS: ondansetron HCL 4 MG/2 ML VIAL IVPUSH (21:46)
[2021-12-29 21:57] LABS: Appearance Urine HAZY; Color Urine YELLOW; Glucose Urine UA NEG (NEG); Leukocyte Esterase Urine NEG (NEG); Nitrite Urine NEG (NEG); Specific Gravity - Urine >= 1.030 (1.005-1.025); Urine Blood NEG (NEG); Urine Ketones NEG (NEG); Urine Protein TRACE MG/DL (NEG-TRACE)
[2021-12-29 22:21] VITALS: BP 142/85; PULSE 65; RESP 16; TEMP 36.1; O2SAT 96
== END 2021-12-29 23:18 | disposition home or self-care (01) ==
PROVIDERS: Emergency Provider Internal Medicine; PCP Nurse Practitioner
DX: N23 Unspecified renal colic (principal); I10 Essential (primary) hypertension
CPT/HCPCS: 36415; 74176; 80053; 81003; 85025; 96361; 96374; 96375; 99283; 99284; J2270; J2405

== ENCOUNTER 2022-12-18 14:57 | Outpatient (REF) | payer OTHER, MEDICAID, SELFPAY ==
--- NOTE | ~2022-12-18 | US_ITS ---
EXAMINATION: US PELVIS, LIMITED/FOLLOW UP CLINICAL INFORMATION: Palpable lumps, prior abdominoplasty. COMPARISON: CT abdomen pelvis 12/29/2021 TECHNIQUE: Grayscale color transabdominal views of the soft tissues of the pelvis were obtained. FINDINGS: Few bilateral inguinal nodes not pathologically enlarged which maintain normal hilar architecture measuring up to 0.8 cm short axis on the left and 0.5 cm short axis on the right. Corresponding to the area of palpable concern in the right groin soft tissues is a 2.7 x 3.7 x 1.9 cm heterogeneous appearing soft tissue and in the left groin is a similar symmetric 3.1 x 3.5 x 2.1 cm heterogeneous region of soft tissue. US/US pelvic limited IMPRESSION: There is a relatively symmetric heterogeneous appearance of the soft tissue in the bilateral inguinal canals corresponding to the areas of palpable concern, of uncertain etiology. Given history of prior abdominoplasty considerations could include sequelae of postsurgical change, or underlying infiltrative infectious/inflammatory soft tissue process. A discrete mass is considered less likely, however correlation with clinical symptoms and exam is recommended and if further workup is desired a contrast-enhanced MR pelvis could be considered. No lymphadenopathy.
== END 2022-12-18 14:58 | disposition home or self-care (01) ==
LOC: HO.US 14:57
PROVIDERS: PCP Registered Nurse; Visit Provider Registered Nurse
DX: R59.0 Localized enlarged lymph nodes (principal)
CPT/HCPCS: 76857

== ENCOUNTER 2023-04-20 09:56 | Outpatient (REF) | payer OTHER, MEDICAID, SELFPAY ==
--- NOTE | ~2023-04-20 | US_ITS ---
EXAMINATION: US ABDOMEN COMPLETE CLINICAL INFORMATION: Chronic abdominal pain. Evaluate for gallstones. COMPARISON: CT abdomen and pelvis 12/29/2021. TECHNIQUE: Real-time imaging of the abdominal viscera. FINDINGS: PANCREAS: Normal. ABDOMINAL AORTA: The proximal, mid, and distal segments are normal in caliber. INFERIOR VENA CAVA: Visualized portions are normal. LIVER: The liver is enlarged measuring 21 cm in greatest length and demonstrates borderline increased echogenicity suggesting hepatic steatosis. The liver contour is normal. No focal hepatic lesion. There is no intrahepatic biliary duct dilatation seen. GALLBLADDER: A large polypoid mass is present in the gallbladder lobular in appearance measuring 2.3 x 1.4 x 1.3 cm. A vascular pedicle can be seen. The gallbladder is physiologically distended without evidence of stones, sludge or pericholecystic fluid. COMMON BILE DUCT: Normal in caliber measuring 0.3 cm in diameter. RIGHT KIDNEY: The renal pyramids are hyperechoic suggesting medullary sponge kidney. Multiple echogenic foci are seen in the medullary regions, the largest measuring 4 mm. These correspond with stones seen on the 12/29/2021 CT scan. No hydronephrosis or focal parenchymal lesions. The kidney measures 11.3 cm in maximum dimension. LEFT KIDNEY: The renal pyramids are hyperechoic suggesting medullary sponge kidney. Multiple echogenic foci are seen in the medullary regions the largest measuring 5 mm. These correspond with stones seen on the 12/29/2021 CT scan. No hydronephrosis or focal parenchymal lesions. The kidney measures 10.9 cm in maximum dimension. SPLEEN: Normal. The spleen measures 10.7 cm in maximum dimension. FREE FLUID: None. US/US abdomen complete IMPRESSION: 1. Enlarged fatty liver. 2. Large polypoid mass in the gallbladder. Consider surgical consult. 3. Question medullary sponge kidney with multiple bilateral nonobstructing stones.
== END 2023-04-20 09:57 | disposition home or self-care (01) ==
LOC: HO.HMGCX 09:56
PROVIDERS: PCP Registered Nurse; Visit Provider Registered Nurse
DX: R10.84 Generalized abdominal pain (principal)
CPT/HCPCS: 76700

== ENCOUNTER → 2023-05-12 08:29 | Outpatient (BNVA) | payer OTHER, MEDICAID, SELFPAY | PROVIDERS: PCP Registered Nurse; Visit Provider Urology ==

== ENCOUNTER → 2023-05-19 10:35 | Outpatient (BNVA) | payer OTHER, MEDICAID, SELFPAY | PROVIDERS: PCP Registered Nurse; Referring Provider Registered Nurse; Visit Provider Surgery ==

== ENCOUNTER 2023-06-03 07:05 | Day surgery (SDC) | payer OTHER, MEDICAID, SELFPAY ==
--- NOTE | 2023-06-02 09:29 | HO.ANESPROP2 ---
Documented by User: Grace De NP 06/02/23 09:50 HPI - Anesthesia Eval Consult details Narrative: 38yo F for Cholecystectomy Laparoscopic, poss open PMFSH Active Problems Active Problems: All Active Problems (Updated 05/12/23 @ 09:25 by Chris Crabtree MD) Gallbladder polyp (Acute) Medullary sponge kidney (Acute) Bilateral kidney stones (Acute) Past Medical History Medical History HTN (hypertension) Surgical History Surgical History (Updated 06/03/23 @ 07:14 by Mabel Key) H/O: hysterectomy History of abdominoplasty Social History Social History (Updated 05/19/23 @ 10:43 by KE Olson) Alcohol intake: current Alcohol intake frequency: holidays/special occasions only Patient Tobacco Use Status: Never used Tobacco Use of substances other than those prescribed or required for medical reasons: No Are you DNR?: No Advance Directives: No Advance Directives Information Provided: Yes Meds Allergies Allergy/AdvReac Type Severity Reaction Status Date / Time adhesive tape Allergy Intermediate Rash Verified 06/03/23 07:14 latex Allergy Intermediate Rash Verified 06/03/23 07:14 Home Medications Medication Instructions Recorded Confirmed Last Taken Type amlodipine 10 mg tablet 1 tab PO DAILY 02/06/21 06/03/23 06/03/23 History omeprazole 20 mg capsule,delayed 1 cap PO DAILY 02/06/21 06/03/23 Unknown History release olmesartan 20 mg tablet 20 mg PO QAM 06/03/23 06/03/23 Unknown History Exam Exam Date and Time: June 02, [id number] Pertinent Lab Results Pertinent Lab Results: CBC and BMP 11/2022 from outside facility WNL Assessment and Plan Assessment Anesthesia Assessment: Chart Reviewed Documented by User: Raffi Francis MD 06/03/23 07:46 PMFSH Past Medical History Medical History HTN (hypertension) Family History Family history of problems with anesthesia: No Surgical History Surgical History (Updated 06/03/23 @ 07:14 by Mabel Key) H/O: hysterectomy History of abdominoplasty History of Problems with Anesthesia: No Social History Social History (Updated 05/19/23 @ 10:43 by KE Olson) Alcohol intake: current Alcohol intake frequency: holidays/special occasions only Patient Tobacco Use Status: Never used Tobacco Use of substances other than those prescribed or required for medical reasons: No Are you DNR?: No Advance Directives: No Advance Directives Information Provided: Yes Meds Allergies Allergy/AdvReac Type Severity Reaction Status Date / Time adhesive tape Allergy Intermediate Rash Verified 06/03/23 07:14 latex Allergy Intermediate Rash Verified 06/03/23 07:14 Home Medications Medication Instructions Recorded Confirmed Last Taken Type amlodipine 10 mg tablet 1 tab PO DAILY 02/06/21 06/03/23 06/03/23 History omeprazole 20 mg capsule,delayed 1 cap PO DAILY 02/06/21 06/03/23 Unknown History release olmesartan 20 mg tablet 20 mg PO QAM 06/03/23 06/03/23 Unknown History Exam Airway Mallampati Class: II TM Dist: >3cm Heart: rrr Lungs: cta Assessment and Plan Assessment Anesthesia Assessment: Anesthesia Plan Discussed Final Anesthetic Review Family History of Problems with Anesthesia: No History of Problems with Anesthesia: No NPO: Yes ASA Class: II Final Preanesthetic Review: No Changes in Pt Med Stat, Meds/Allgs Chart Reviewed, Consent Obtained/Reviewed and Anes Risks/Benef Reviewed Patient Risk: Low Procedure Risk: Intermediate Anesthetic Plan Anesthetic Plan: GA and Agree w/ Assess. and Plan Disposition: Standard PACU
--- NOTE | 2023-06-02 10:52 | MHC.SHP ---
Pre-Procedural Eval Section A Date of Service: 06/02/23 The patient is an INPATIENT: No Changes since office visit: No Cold of Flu in the past 2 weeks, No New Medical Problems, No Changes in Medication and No Patient answered all questions The History & Physical has been completed within 30 days and I have reviewed it.: Yes Section B Chief Complaint: Cholesterolosis of gallbladder Allergies: Allergies Allergy/AdvReac Type Severity Reaction Status Date / Time adhesive tape Allergy Rash Verified 05/19/23 10:42 latex Allergy Rash Verified 05/19/23 10:42 Plan I have reviewed the history and physical and performed a pertinent physical examination on my patient. No changes have occurred unless specified. Time Spent With Patient Time: Total time managing care of this patient today ____ minutes.
[2023-06-03] VITALS (15 sets, daily range): BP systolic 117–154; BP diastolic 71–93; PULSE 61–72; RESP 12–18; TEMP 36.2–37; O2SAT 95–100; BMI 27.6
[2023-06-03] MEDS: Lactated Ringers 1,000 ML 100 ML IVCONT (07:37)
--- NOTE | 2023-06-03 09:28 | W.PM.OPN ---
Operative Note Operative Note Date of Service: 06/03/23 Narrative: Preoperative diagnosis: [] Biliary colic, gallbladder polyp Postop diagnosis: [] Same Procedure [] laparoscopic cholecystectomy Surgeon: [] Major Supervisor Machine Workers: [] KARENA Pittman Type of Anesthesia: [] General Indication for surgery: [] Gastric and omental soft adhesions to the gallbladder. Findings: [] Patient brought to the operating room, placed on operative table in supine position, after adequate level of general anesthesia was induced, the patient's abdomen was prepped and draped in usual sterile fashion. Using a supraumbilical curvilinear incision, Rocha technique was used to insufflate the abdominal cavity to 15 mm of CO2. Upper midline and right subcostal ports were placed under direct laparoscopic view, and the patient was placed in reverse Trendelenburg position, and tilted to the left. Soft omental and gastric adhesions were swept off the gallbladder. Its hilum was approached with the cystic artery and cystic duct were each identified, circumferentially skeletonized, traced directly into the gallbladder, and critical view obtained. Each was clipped proximally x2, distally x1 and transected. Gallbladder was then cauterized from the gallbladder fossa using Bovie. Specimen was placed in an Endo-Catch bag, a retrieved through the umbilical port. Abdominal cavity was irrigated secured hemostasis. All ports were removed under direct laparoscopic view. Wounds were closed in the following manner; umbilical wound is fascia reapproximated using interrupted 0 Vicryl sutures. Skin wounds were closed using subcuticular 4-0 Vicryl sutures followed by Steri-Strips and sterile dressings. Was retreated 0.5% Marcaine at completion. Sponge, needle, and instrument counts reported to be correct. Patient tolerated the procedure well and emerged anesthesia stable condition. EBL minimal
[2023-06-03] MEDS: fentaNYL citrate/PF 100 MCG/2 ML VIAL 25 MCG IVPUSH ×4 (09:50→10:05)
[2023-06-03] MEDS: oxyCODONE HCl Immed Release 5 MG TABLET PO (09:50)
[2023-06-03] MEDS: HYDROmorphone HCl 0.5 MG/0.5 ML SYRINGE 0.25 MG IVPUSH (10:09)
== END 2023-06-03 12:29 | disposition home or self-care (01) ==
PROVIDERS: PCP Registered Nurse; Visit Provider Surgery
PROC: 0FT44ZZ Resection of Gallbladder, Percutaneous Endoscopic Approach (ICD-10-PCS; CPT 47562; principal; 2023-06-03 09:10)
DX: D13.5 Benign neoplasm of extrahepatic bile ducts (principal); K81.1 Chronic cholecystitis; I10 Essential (primary) hypertension
CPT/HCPCS: 47562; 88304; J0131; J0690; J1100; J1170; J2250; J2405; J2550; J2795; J3010

== ENCOUNTER → 2023-06-03 07:05 | Outpatient (BNV) | payer OTHER, MEDICAID, SELFPAY | PROVIDERS: PCP Registered Nurse; Visit Provider Surgery | DX: K80.50 Calculus of bile duct without cholangitis or cholecystitis without obstruction (principal) | CPT/HCPCS: 47562 ==

== ENCOUNTER 2023-06-11 10:53 | Outpatient (AMB) | payer OTHER, MEDICAID, SELFPAY ==
[2023-06-11 10:58] VITALS: BP 172/98; PULSE 88
--- NOTE | 2023-06-11 10:58 | MHC.OFFVIS ---
Intake Vital Signs 06/11/23 10:58 Weight 188 lb BP 172/98 H Blood Pressure Location Rt brachial Position Sitting Pulse 88 Intake Visit Reasons: S/P lap amarjit Intake Note: Patient here s/p lap amarjit. Reports incisions healing well. Noted mild bleeding for the first couple of days but since subsided. Takes rx pain meds as needed. Firer Low Pressure Required: No Accompanied by: Self / Same As Patient Allergies adhesive tape Allergy (Intermediate, Verified 06/11/23 11:00) Rash latex Allergy (Intermediate, Verified 06/11/23 11:00) Rash HPI HPI Comments History of Present Illness Details Patient presents with a friend for follow-up. All things considered, she is doing quite well. She has minimal incisional discomfort. She is increasing her activity level. She is tolerating her diet. She is having regular bowel habits. She still has nonspecific GI complaints for which she will follow-up with her wildlife rehabilitator. Pathology report was reviewed with the patient. Dysplasia with no evidence of invasion. PFSH Medical History HTN (hypertension) Surgical History H/O: hysterectomy History of abdominoplasty History of laparoscopic cholecystectomy (06/03/23) Social History Alcohol intake: current Alcohol intake frequency: holidays/special occasions only Patient Tobacco Use Status: Never used Tobacco Physical Exam Vital Signs: Last Vital Signs Pulse 88 06/11/23 10:58 BP 172/98 H 06/11/23 10:58 Eyes Other: Anicteric GI Other: Abdomen soft, benign. All wounds clean dry and intact Assessment & Plan Assessment & Plan (1) Gallbladder polyp: Code(s): K82.4 - Cholesterolosis of gallbladder Plan Patient doing quite well post cholecystectomy. She will be given a work note to follow-up in a few weeks to recommence work. She has been given local instructions, and will follow-up p.r.n.. Coding Level of Care Code Global (04372) Diagnoses Gallbladder polyp K82.4
== END 2023-06-11 11:09 | disposition home or self-care (01) ==
PROVIDERS: PCP Registered Nurse; Visit Provider Surgery
DX: K82.4 Cholesterolosis of gallbladder (principal)
CPT/HCPCS: 99024

== ENCOUNTER → 2023-06-11 10:53 | Outpatient (BNVA) | payer OTHER, MEDICAID, SELFPAY | PROVIDERS: PCP Registered Nurse; Visit Provider Surgery ==

== ENCOUNTER 2023-06-28 16:02 | Outpatient (REF) | payer OTHER, MEDICAID, SELFPAY ==
[2023-06-28 17:43] LABS: MANUAL DIFF FLAG NO
[2023-06-28 17:46] LABS: Appearance Urine Clear; Color Urine Yellow; Glucose Urine UA Negative (Negative); Leukocyte Esterase Urine Negative (Negative); Nitrite Urine Negative (Negative); Urine Blood Negative (Negative); Urine Ketones Negative (Negative); Urine Protein Negative (Neg-Trace)
[2023-06-28 17:51] LABS: Bacteria Urine None Seen (None Seen); Hyaline Casts Urine 0-2 /LPF (0-2); Squamous Epithelial Cell Urine 0-2 /HPF (0-2); WBC Urine 0-5 /HPF (0-5)
[2023-06-28 18:02] LABS: Basophils Percent Auto 0.5 % (0-2); Eosinophils Absolute Auto 0.4 X10*3/uL (0.0-0.4); Eosinophils Percent Auto 5.3 % (0-4); Hematocrit 40.2 % (37.0-47.0); Hemoglobin 13.1 g/dl (12.0-16.0); Imm Gran Abs Auto 0.01 X10*3/uL (0.00-0.03); Imm Gran Pct Auto 0.2 % (0.0-0.4); Lymphocytes Absolute Auto 2.7 X10*3/uL (1.2-4.9); Lymphocytes Percent Auto 40.3 % (20-40); Mean Corpuscular HGB Conc 32.6 g/dl (31.0-35.0); Mean Corpuscular Hemoglobin 29.2 pg (27.0-33.0); Mean Corpuscular Volume 89.7 fL (80.0-98.0); Mean Platelet Volume 10.5 fL (9.4-12.3); Monocytes Absolute Auto 0.5 X10*3/uL (0.1-1.2); Monocytes Percent Auto 7.7 % (2-11); Platelet Count 311 X10*3/uL (160-400); Red Blood Count 4.48 X10*6/uL (4.20-5.50); Red Cell Distribution Width 12.4 % (11.0-16.0); White Blood Count 6.6 X10*3/uL (4.8-10.8)
[2023-06-29 01:58] LABS: Alanine Aminotransferase 14 U/L (0-31); Albumin Level 4.6 g/dL (3.5-5.0); Alkaline Phosphatase 67 U/L (39-117); Anion Gap 11 (12-20); Aspartate Amino Transferase 13 U/L (5-31); Bilirubin Total 0.3 mg/dL (0.0-1.0); Blood Urea Nitrogen 13 mg/dL (9-16); Calcium 9.5 mg/dL (8.4-10.2); Carbon Dioxide 25 mmol/L (22-29); Chloride 108 mmol/L (96-108); Estimated Glomerular Filt Rate > 60; Glucose Random 104 mg/dL (60-115); Potassium 4.6 mmol/L (3.3-5.1); Sodium 139 mmol/L (135-145); Total Protein 7.9 g/dL (6.5-8.0)
== END 2023-06-28 16:03 | disposition home or self-care (01) ==
LOC: HO.HHCL 16:02
PROVIDERS: Visit Provider Registered Nurse
DX: R10.9 Unspecified abdominal pain (principal)
CPT/HCPCS: 36415; 80053; 81001; 85025

== ENCOUNTER 2023-07-30 16:15 | Outpatient (REF) | payer OTHER, MEDICAID, SELFPAY ==
--- NOTE | ~2023-07-30 | XR_ITS ---
EXAMINATION: XR ABDOMEN KUB CLINICAL INDICATION: Calculus of kidney COMPARISON: Ultrasound abdomen 04/20/2023. CT abdomen and pelvis 12/29/2021. TECHNIQUE: 2 AP views of the abdomen. FINDINGS: Nonobstructive bowel gas pattern. Moderate amount of stool in the colon. Visualization of the bilateral kidneys is limited due to overlying bowel. Degenerative changes in the lumbar spine. Redemonstration of 7 mm calculus overlying lower pole of left kidney. Multiple tiny additional calculi again overlie the left kidney. Tiny faint calculi overlying the right kidney. XR/XR KUB IMPRESSION: Redemonstration of 7 mm left renal calculus. Multiple tiny bilateral renal calculi.
== END 2023-07-30 16:16 | disposition home or self-care (01) ==
LOC: HO.XRAY 16:15
PROVIDERS: PCP Registered Nurse; Visit Provider Urology
DX: N20.0 Calculus of kidney (principal); Q61.5 Medullary cystic kidney
CPT/HCPCS: 74018

== ENCOUNTER 2023-08-13 15:16 | Outpatient (REF) | payer OTHER, MEDICAID, SELFPAY ==
[2023-08-13 17:31] LABS: Appearance Urine Cloudy; Color Urine Yellow; Glucose Urine UA Negative (Negative); Leukocyte Esterase Urine Small (1+) (Negative); Nitrite Urine Positive (Negative); Specific Gravity - Urine 1.025 (1.005-1.025); UMIC TRIGGER UACC YES; Urine Blood Small (1+) (Negative); Urine Ketones Trace mg/dL (Negative); Urine Protein Negative (Neg-Trace)
[2023-08-13 18:02] LABS: Bacteria Urine 4+ (None Seen); Calcium Oxalate Crystals Urine Present; UACC Culture Trigger YES
[2023-08-13 18:18] LABS: Erythrocyte Sedimentation Rate 7 MM/HR (0-20)
[2023-08-13 19:14] LABS: C Reactive Protein 0.22 mg/dL (< or = 0.50)
[2023-08-16 21:58] LABS: Transglutaminase IgA <1.0 U/mL
[2023-08-17 16:24] LABS: Immunoglobulin A 281 mg/dL (47-310)
== END 2023-08-13 15:17 | disposition home or self-care (01) ==
LOC: HO.CHCLDS 15:16
PROVIDERS: Visit Provider Registered Nurse
DX: R10.84 Generalized abdominal pain (principal); R31.9 Hematuria, unspecified; R82.90 Unspecified abnormal findings in urine
CPT/HCPCS: 36415; 81001; 82784; 85652; 86140; 86364; 87086; 87088; 87186

== ENCOUNTER 2023-09-01 15:39 | Outpatient (REF) | payer OTHER, MEDICAID, SELFPAY | END 2023-09-01 15:40 | disposition home or self-care (01) | LOC: HO.LAB 15:39 | PROVIDERS: PCP Registered Nurse; Visit Provider Urology | DX: N20.0 Calculus of kidney (principal); N39.0 Urinary tract infection, site not specified; Q61.5 Medullary cystic kidney | CPT/HCPCS: 81003; 87086 ==

== ENCOUNTER 2023-09-01 15:39 | Outpatient (AMB) | payer OTHER, MEDICAID, SELFPAY ==
--- NOTE | 2023-09-01 15:42 | A.OFFVIS_ITS ---
Intake Intake Visit Reasons: 2m/KUB/litholink Intake Note: Patient presents today for a follow-up on KUB Results: Meds- None Allergies to Antibiotic- No Known Allergies Blood Thinner- None Director Family Required: No Accompanied by: Self / Same As Patient Allergies adhesive tape Allergy (Intermediate, Verified 09/03/23 14:20) Rash latex Allergy (Intermediate, Verified 09/03/23 14:20) Rash HPI HPI Comments History of Present Illness Details Rosa is a 38-year-old female who presents today to the office for a follow-up. 09/01/23? Rosa is followed for nephrolithiasis. CoMorbidity - Htn. She is followed today for KUB/litholink results. She was last seen by me on 05/12/23, discussed metabolic w/u. 24-hour urine collection test and Plain KUB X-ray was ordered. 24 hr urine results are not available. T he patient c/o's of dysuria and urgency. Discussed Left ESWL. Discussed risks to include but not limited to, blood in the urine, bruising to the skin, kidney hematoma, possible need for another procedure if a stone fragment obstructs the ureter while passing, possible need to repeat procedure if stone is not completely fragmented. I discussed referral to poultry farmer egg for further evaluation of her kidney stones and hypertension. I reviewed the KUB X-ray results from 07/30/23 revealed redemonstration of 7 mm left renal calculus. Multiple tiny bilateral renal calculi. I reviewed the urine culture results from 08/13/23 which came back Citrobacter koseri > 100,000 cfu/mL. 09/01/23: Evaluation today--UA-- leukocy patrick: 1 +; blood: 1 +. Review of charts: Abdomen US results reviewed?04/20/23-- Questionable medullary sponge kidney with m ultiple bilateral nonobstructing stones.? CTAP? results reviewed--12/29/21--Bilateral? nonobstructing renal stones. 09/01/23: Plan: Ordered Macrobid 100 mg BID for 7days. Ordered Nitrofurantoin 50 mg. Advised the patient to take it after intercourse. Will send urine for culture. Will schedule a left ESWL. [facility] Medical History HTN (hypertension) Surgical History History of laparoscopic cholecystectomy (06/03/23) History of abdominoplasty H/O: hysterectomy Social History Alcohol intake: current Alcohol intake frequency: holidays/special occasions only Patient Tobacco Use Status: Never used Tobacco Review of Systems Const All systems reviewed & are unremarkable except as noted in HPI and below Reports no additional complaints Eyes Reports no additional complaints ENT Reports no additional complaints Card Denies dyspnea Resp Denies cough and Denies dyspnea GI Reports no additional complaints Reports no additional complaints Musc Reports no additional complaints Skin/Breast Denies rash and Denies unusual bruising Neuro Reports no additional complaints Psych Reports no additional complaints Endo Reports no additional complaints Jose/Lymph Reports no additional complaints Aller/Immun Reports no additional complaints Results AMB Urinalysis, Automated UA Leukoctes 70 Donnie/uL Last Edit by KE Byrnes on 09/01/23 16:27 1+ Sam Chapman 09/01/23 16:27 UA Nitrite Negative Last Edit by KE Byrnes on 09/01/23 16:27 UA Urobilinogen 0.2 mg/dL Last Edit by KE Byrnes on 09/01/23 16:2 7 UA Protein 15 mg/dL Last Edit by KE Byrnes on 09/01/23 16:27 UA pH 6.0 Last Edit by KE Byrnes on 09/01/23 16:27 UA Blood 25 Neil/uL Last Edit by KE Byrnes on 09/01/23 16:27 1+ Sam Chapman 09/01/23 16:27 UA Specific [place] 1.015 Last Edit by KE Byrnes on 09/01/23 16: 27 UA Ketone Negative Last Edit by KE Byrnes on 09/01/23 16:27 UA Bilirubin 0 mg/dL Last Edit by KE Byrnes on 09/01/23 16:27 UA Glucose 0 mg/dL Last Edit by KE Byrnes on 09/01/23 16:27 Results Reviewed Results Reviewed: Laboratory Last Values Urine pH (Auto) 6.0 09/01/23 16:20 Specific [place] (Auto) 1.015 09/01/23 16:20 Urine Protein (Auto) 15 mg/dL 09/01/23 16:20 Glucose (UA)(Auto) 0 mg/dL 09/01/23 16:20 Urine Ketones (Auto) Negative 09/01/23 16:20 Urine Blood (Auto) 25 Neil/uL 09/01/23 16:20 Urine Nitrite (Auto) Negative 09/01/23 16:20 Urine Bilirubin (Auto) 0 mg/dL 09/01/23 16:20 Urine Urobilinogen (Auto) 0.2 mg/dL 09/01/23 16:20 Leukocyte Esterase (Auto) 70 Donnie/uL 09/01/23 16:20 Date of Service: 07/30/23 EXAMINATION:? XR ABDOMEN KUB CLINICAL INDICATION:? Calculus of kidney?? COMPARISON:? Ultrasound abdomen 04/20/2023. CT abdomen and pelvis 12/29/2021.?? FINDINGS:? Nonobstructive bowel gas pattern. Moderate amount of stool in the colon. Visualization of the bilateral kidneys is limited due to overlying bowel. Degenerative changes in the lumbar spine. Redemonstration of 7 mm calculus overlying lower pole of left kidney. Multiple tiny additional calculi again overlie the left kidney. Tiny faint calculi overlying the right kidney. IMPRESSION: Redemonstration of 7 mm left renal calculus. Multiple tiny bilateral renal calculi. Ordered: Urine Culture Procedure Result Verified Site Urine Culture Final 08/16/23 Organism 1 Citrobacter koseri Quant > 100,000 cfu/mL C koseri M.I.C. RX --------- --- Ceftriaxone <=0.25 S Gentamicin <=1 S Levofloxacin <=0.12 S Nitrofurantoin <=16 S Trimethoprim/Sulfamethoxazole <=20 S Assessment & Plan Assessment & Plan (1) Bilateral kidney stones: Code(s): N20.0 - Calculus of kidney (2) Medullary sponge kidney: Code(s): Q61.5 - Medullary cystic kidney (3) UTI (urinary tract infection): Code(s): N39.0 - Urinary tract infection, site not specified Plan Ordered Macrobid 100 mg BID for 7days. Ordered Nitrofurantoin 50 mg. Advised the patient to take it after intercourse.? Will send urine for culture. Will schedule a left ESWL. Orders: Orders Urine Culture 09/01/23 N39.0 - Urinary tract infection, site not specified AMB Urinalysis Automated 09/01/23 Z13.9 - Encounter for screening, unspecified Medications: New nitrofurantoin monohyd/m-cryst 100 mg (Macrobid) must administer with a meal/food 100 mg PO BID 14 caps 0RF nitrofurantoin macrocrystal 50 mg orally as directed use after intercourse; must administer with a meal/food 30 caps 3RF Patient Instructions: The patient had an opportunity to ask questions regarding treatment plan. All questions were answered. Imaging, Laboratory studies and physical exam results were discussed and reviewed in detail. No major barriers to understanding were identified. The patient expressed understanding and agreement with the above treatment plan.? ? ? The patient is aware they should contact our office by phone for worsening of their current condition or the appearance of new symptoms. Compliance is encouraged with any medications and followup testing that is ordered.? ? ? It is a privilege to be allowed the opportunity to participate in the urologic care of your patient. If you have any questions or concerns regarding treatment for the above conditions please do not hesitate to contact me. The office telephone contact is [phone].? ? ? This note is constructed in part using voice recognition software. While every effort has been made to ensure accuracy fruit grading supervisor errors may have been included.? ? ? Yours sincerely,? ? ? Chris Crabtree MD? ? Coding Level of Care Code Est Pt Level 4 (85178) Diagnoses Bilateral kidney stones N20.0 Medullary sponge kidney Q61.5 UTI (urinary tract infection) N39.0
== END 2023-09-01 16:33 | disposition home or self-care (01) ==
PROVIDERS: PCP Registered Nurse; Visit Provider Urology
DX: N20.0 Calculus of kidney (principal); Q61.5 Medullary cystic kidney; N39.0 Urinary tract infection, site not specified
CPT/HCPCS: 99214

== ENCOUNTER 2023-09-03 14:13 | Outpatient (REF) | payer OTHER, MEDICAID, SELFPAY ==
[2023-09-03 16:25] LABS: Alanine Aminotransferase 16 U/L (0-31); Albumin Level 4.7 g/dL (3.5-5.0); Alkaline Phosphatase 76 U/L (39-117); Aspartate Amino Transferase 13 U/L (5-31); Bilirubin Direct 0.1 mg/dL (0.0-0.5); Bilirubin Total 0.4 mg/dL (0.0-1.0); Lipase 22 U/L (8-78); Total Protein 8.1 g/dL (6.5-8.0)
[2023-09-03 17:03] LABS: Vitamin B12 579 pg/mL (200-900)
[2023-09-08 16:23] LABS: Vitamin D 25-OH, D2 <4 ng/mL; Vitamin D 25-OH, D3 21 ng/mL; Vitamin D 25-OH, Total 21 ng/mL (30-100)
== END 2023-09-03 14:14 | disposition home or self-care (01) ==
LOC: HO.LAB 14:13
PROVIDERS: PCP Registered Nurse; Visit Provider Nurse Practitioner Family
DX: K21.9 Gastro-esophageal reflux disease without esophagitis (principal); K59.01 Slow transit constipation; R10.13 Epigastric pain; R10.12 Left upper quadrant pain; R14.0 Abdominal distension (gaseous); K52.9 Noninfective gastroenteritis and colitis, unspecified; E55.9 Vitamin D deficiency, unspecified; Z87.442 Personal history of urinary calculi
CPT/HCPCS: 36415; 80076; 82306; 82607; 82746; 83690

== ENCOUNTER 2023-09-03 14:13 | Outpatient (AMB) | payer OTHER, MEDICAID, SELFPAY ==
--- NOTE | 2023-09-03 14:21 | A.OFFVIS_ITS ---
Intake Vital Signs 09/03/23 14:24 Height 5 ft 9 in Weight 180 lb BMI 26.6 BP 162/90 H Blood Pressure Location Lt brachial Position Sitting Pulse 81 Intake Visit Reasons: abdominal pain Intake Note: Patient new consult for abdominal pain. Patient cc: abdominal pain with bloating and getting worse with meal really discomfort, acid reflex on and off, diarrhea and denies any other GI issues. 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 -Chronic cholecystitis. Comment: There is no invasion and the cystic duct margin is free of dyspla 38-year-old female is here today for ini tial consultation. Patient has a history of bilateral kidney stones, medullary sponge kidney, gallbladder polyp, status post cholecystectomy. Patient reports that she has been having postprandial abdominal bloating, passing gas. Reports postprandial abdominal loose stools with certain food. However patient does report to have constipation. Unable to empty her bowels every day. Patient denies any melena, hematochezia, unintentional weight loss or ribbon like stools. Patient reports dyspepsia without dysphagia or odynophagia. [facility] Medical History HTN (hypertension) Surgical History History of laparoscopic cholecystectomy (06/03/23) History of abdominoplasty H/O: hysterectomy Social History Alcohol intake: current Alcohol intake frequency: holidays/special occasions only Patient Tobacco Use Status: Never used Tobacco Review of Systems Const Denies weight gain and Denies weight loss ENT Reports no additional complaints, Denies dysphagia and Denies odynophagia Card Reports no additional complaints Resp Reports no additional complaints GI Reports abdominal pain, Denies belching, Denies melena, Reports bloating, Denies change in bowel habits, Reports constipation, Denies dysphagia, Reports excessive flatus, Denies dyspepsia, Denies heartburn, Denies diarrhea, Reports loose stools, Denies nausea, Denies odynophagia and Denies vomiting Reports no additional complaints Musc Reports no additional complaints Neuro Reports no additional complaints Psych Reports no additional complaints Endo Reports no additional complaints Physical Exam Vital Signs: Last Vital Signs Pulse 81 09/03/23 14:24 BP 162/90 H 09/03/23 14:24 BMI result Body Mass Index 26.6 Const General: healthy appearing, no acute distress and well developed Nutritional Appearance: well nourished Orientation/consciousness: patient oriented x3 HEENT Head: Yes normal to inspection, Yes normocephalic and Yes atraumatic Face and sinus: Yes normal facial exam Mouth: Normal oral and palatal mucosa present Throat: Yes posterior oropharynx normal, Yes tonsils normal and Yes uvula midline Eyes General: appearance normal, both eyes and all related structures Neck Neck: Yes normal visual inspection, Yes full ROM and Yes trachea midline Thyroid: Thyroid normal Resp Effort & Inspection: normal respiratory effort, able to speak in complete sentences, no tracheal deviation and symmetric chest movement Auscultation: clear to auscultation bilaterally Cardio Rate: regular rate Heart sounds: S1 normal heart sound present and S2 normal heart sound present GI Inspection: Yes normal to inspection and No distended Palpation (GI): Soft to palpation, not firm, nontender and No hepatosplenomegaly present Auscultation: normal bowel sounds General: Yes no CVA tenderness Back/Spine/Pelvis Back: no CVA tenderness Skin General skin exam: elasticity normal, turgor normal and dry skin Neuro General: patient oriented x3 Psych Appearance: grossly normal Mental Status: mental status grossly normal Assessment & Plan Assessment & Plan (1) Postprandial abdominal pain in left upper quadrant: Code(s): R10.12 - Left upper quadrant pain (2) Abdominal bloating: Code(s): R14.0 - Abdominal distension (gaseous) (3) Constipation: Code(s): K59.00 - Constipation, unspecified Qualifiers: Constipation type: slow transit constipation Qualified Code(s): K59.01 - Slow transit constipation (4) Postprandial diarrhea: Code(s): K52.9 - Noninfective gastroenteritis and colitis, unspecified Plan Patient reports epigastric discomfort and left upper quadrant discomfort. Occasional right upper quadrant pain. Patient reports that this pain is not necessarily related to meals. Patient also feels very gassy. Most likely gastropathy ink pain, however we will check liver panel, lipase. Check H pylori and pancreatic insufficiency. Patient does have a postprandial loose stools will check vitamin B12, folate and vitamin-D levels. Most likely this is related due to status post cholecystectomy. Patient was encouraged to avoid food that could be aggravating and making her symptoms worse. Will start her on Citrucel to help her bulk his stools and Senokot to help her empties her bowels better. Patient will call our office if she will continue have same symptoms. I will see her in 5 weeks, sooner on as needed basis. Patient is agreeable to this plan and verbalizes understanding of instructions. She was given the opportunity to ask questions and all questions answered. Thank you for allowing me to participate in her care Orders: Orders Liver Panel 09/03/23 R10.9 - Unspecified abdominal pain Lipase 09/03/23 R10.9 - Unspecified abdominal pain H pylori Ag Stool 09/04/23 K21.9 - Gastro-esophageal reflux disease without esophagitis Pancreatic Elastase-1 09/04/23 R10.9 - Unspecified abdominal pain Vitamin B12 and Folate 09/03/23 R19.7 - Diarrhea, unspecified Vitamin D 25-OH (D2 and D3) 09/03/23 E55.9 - Vitamin D deficiency, unspecified Medications: New methylcellulose (laxative) (Citrucel) take it with full glass of water 500 mg PO DAILY 90 tabs 2RF K59.00 - Constipation, unspecified sennosides (Natural Senna Laxative) 8.6 mg PO BEDTIME 30 tabs 3RF constipation K59.00 - Constipation, unspecified Coding Level of Care Code New Pt Level 4 (83033) Diagnoses Postprandial abdominal pain in left upper quadrant R10.12 Abdominal bloating R14.0 Slow transit constipation K59.01 Constipation type: slow transit constipation Postprandial diarrhea K52.9 Time Spent (min) 45 Comment 30 minutes spent with patient and additional 15 minutes spent reviewing her records
[2023-09-03 14:24] VITALS: BP 162/90; PULSE 81; BMI 26.6
== END 2023-09-03 15:01 | disposition home or self-care (01) ==
PROVIDERS: PCP Registered Nurse; Visit Provider Nurse Practitioner Family
DX: R10.12 Left upper quadrant pain (principal); R14.0 Abdominal distension (gaseous); K59.01 Slow transit constipation; K52.9 Noninfective gastroenteritis and colitis, unspecified
CPT/HCPCS: 99204

== ENCOUNTER 2023-09-04 11:42 | Outpatient (REF) | payer OTHER, MEDICAID, SELFPAY ==
[2023-09-13 21:28] LABS: Pancreatic Elastase-1 >500 mcg/g
== END 2023-09-04 11:43 | disposition home or self-care (01) ==
LOC: HO.LNP 11:42
PROVIDERS: Visit Provider Nurse Practitioner Family
DX: R10.9 Unspecified abdominal pain (principal); K21.9 Gastro-esophageal reflux disease without esophagitis
CPT/HCPCS: 82656; 87338

== ENCOUNTER 2023-10-11 16:15 | Outpatient (AMB) | payer OTHER, MEDICAID, SELFPAY ==
[2023-10-11 16:18] VITALS: BP 133/79; PULSE 71; BMI 28.9
--- NOTE | 2023-10-11 16:18 | A.OFFVIS_ITS ---
Intake Vital Signs 10/11/23 16:18 Height 5 ft 9 in Weight 195 lb 12.328 oz BMI 28.9 BP 133/79 Blood Pressure Location Rt brachial Position Sitting Pulse 71 Intake Visit Reasons: 5 week follow up ABD Pain Intake Note: Patient returns to in office visit today in follow up of labs and abdominal pain. CC: Patient continues to c/o diarrhea, abdominal pain, abdominal bloating, nausea, and occasional acid reflux. Bandsaw Operator Required: No Accompanied by: Self / Same As Patient Allergies adhesive tape Allergy (Intermediate, Verified 10/11/23 16:22) Rash latex Allergy (Intermediate, Verified 10/11/23 16:22) Rash No Known Drug Allergies Allergy (Unknown, Verified 10/11/23 16:22) none HPI 5 week follow up ABD Pain HPI Details LAST VISIT Postprandial abdominal pain in left upper quadrant Abdominal bloating Constipation Postprandial diarrhea Plan Patient reports epigastric discomfort and left upper quadrant discomfort. Occasional right upper quadrant pain. Patient reports that this pain is not necessarily related to meals. Patient also feels very gassy. Most likely gastropathy ink pain, however we will check liver panel, lipase. Check H pylori and pancreatic insufficiency. Patient does have a postprandial loose stools will check vitamin B12, folate and vitamin-D levels. Most likely this is related due to status post cholecystectomy. Patient was encouraged to avoid food that could be aggravating and making her symptoms worse. Will start her on Citrucel to help her bulk his stools and Senokot to help her empties her bowels better. Patient will call our office if she will continue have same symptoms. I will see her in 5 weeks, sooner on as needed basis. Patient is agreeable to this plan and verbalizes understanding of instructions. She was given the opportunity to ask questions and all questions answered. ? Thank you for allowing me to participate in her care Orders Orders Liver Panel 09/03/23 R10.9 Lipase 09/03/23 R10.9 H pylori Ag Stool 09/04/23 K21.9 Pancreatic Elastase-1 09/04/23 R10.9 Vitamin B12 and Folate 09/03/23 R19.7 Vitamin D 25-OH (D2 and D3) 09/03/23 E55.9 Medications New methylcellulose (laxative) (Citrucel) take it with full glass of water 500 mg PO DAILY 90 tabs 2RF K59.00 sennosides (Natural Senna Laxative) 8.6 mg PO BEDTIME 30 tabs 3RF constipati on K59.00 TODAY'S VISIT: Patient is here today for follow-up and to discuss lab results. Patient continues to have loose stools. Patient reports that she takes Senokot 1 tablet in the evening and will have semi soft bowel movement in the morning, however after that she will have several loose stools. Patient admits to having abdominal bloating no matter what she eats. Patient denies any nausea or vomiting. Occasional acid reflux which she takes pantoprazole as needed. Patient reports right upper quadrant discomfort postprandially. Status post cholecystectomy in May. Patient reports that she has been trying to eat healthy. Yesterday reports to have toast with orange juice and boiled egg. For launch she had rice with steamed broccoli,and carrots and chicken. [facility] Medical History HTN (hypertension) Surgical History History of laparoscopic cholecystectomy (06/03/23) History of abdominoplasty H/O: hysterectomy Family History Mother Throat cancer Maternal Aunt Breast cancer Alcohol intake: current Alcohol intake frequency: holidays/special occasions only Patient Tobacco Use Status: Never used Tobacco Review of Systems Const Denies weight gain and Denies weight loss ENT Reports no additional complaints, Denies dysphagia and Denies odynophagia Card Reports no additional complaints Resp Reports no additional complaints GI Reports abdominal pain, Denies belching, Denies melena, Reports bloating, Denies change in bowel habits, Reports constipation, Denies dysphagia, Denies excessive flatus, Denies dyspepsia, Denies heartburn, Denies diarrhea, Reports loose stools, Denies nausea, Denies odynophagia and Denies vomiting Musc Reports no additional complaints Neuro Reports no additional complaints Psych Reports no additional complaints Endo Reports no additional complaints Physical Exam Vital Signs: Last Vital Signs Pulse 71 10/11/23 16:18 BP 133/79 10/11/23 16:18 BMI result Body Mass Index 28.9 Const General: healthy appearing, no acute distress and well developed Nutritional Appearance: well nourished Orientation/consciousness: patient oriented x3 HEENT Head: Yes normal to inspection, Yes normocephalic and Yes atraumatic Face and sinus: Yes normal facial exam Mouth: Normal oral and palatal mucosa present Throat: Yes posterior oropharynx normal, Yes tonsils normal and Yes uvula midline Eyes General: appearance normal, both eyes and all related structures Neck Neck: Yes normal visual inspection, Yes full ROM and Yes trachea midline Thyroid: Thyroid normal Resp Effort & Inspection: normal respiratory effort, able to speak in complete sentences, no tracheal deviation and symmetric chest movement Auscultation: clear to auscultation bilaterally Cardio Rate: regular rate Heart sounds: S1 normal heart sound present and S2 normal heart sound present GI Inspection: No distended Palpation (GI): Soft to palpation, not firm, nontender and No hepatosplenomegaly present Auscultation: normal bowel sounds General: Yes no CVA tenderness Back/Spine/Pelvis Back: no CVA tenderness Skin General skin exam: elasticity normal, turgor normal and dry skin Neuro General: patient oriented x3 Psych Appearance: grossly normal Mental Status: mental status grossly normal Results Reviewed Results Reviewed: Laboratory Tests 08/13/23 08/13/23 08/13/23 15:25 15:25 15:25 ESR 7 Total Bilirubin Direct Bilirubin AST ALT Alkaline Phosphatase C-Reactive Protein 0.22 Vitamin B12 25-OH Vitamin D Total Folate Stool Pancreat Elastase Stool H. pylori Ag Tiss Transglutamin IgA <1.0 09/03/23 09/03/23 09/03/23 15:35 15:35 15:35 ESR Total Bilirubin 0.4 Direct Bilirubin 0.1 AST 13 ALT 16 Alkaline Phosphatase 76 C-Reactive Protein Vitamin B12 579 25-OH Vitamin D Total 21 L Folate 14.0 Stool Pancreat Elastase Stool H. pylori Ag Tiss Transglutamin IgA 09/04/23 09:43 ESR Total Bilirubin Direct Bilirubin AST ALT Alkaline Phosphatase C-Reactive Protein Vitamin B12 25-OH Vitamin D Total Folate Stool Pancreat Elastase >500 Stool H. pylori Ag SEE NOTE Tiss Transglutamin IgA Assessment & Plan Assessment & Plan (1) Postprandial abdominal pain in left upper quadrant: Code(s): R10.12 - Left upper quadrant pain (2) Abdominal bloating: Code(s): R14.0 - Abdominal distension (gaseous) (3) Constipation: Code(s): K59.00 - Constipation, unspecified Qualifiers: Constipation type: slow transit constipation Qualified Code(s): K59.01 - Slow transit constipation (4) Postprandial diarrhea: Code(s): K52.9 - Noninfective gastroenteritis and colitis, unspecified (5) RUQ abdominal pain: Code(s): R10.11 - Right upper quadrant pain (6) IBS (irritable bowel syndrome): Code(s): K58.9 - Irritable bowel syndrome without diarrhea Qualifiers: Irritable bowel syndrome type: with both diarrhea and constipation Qualified Code(s): K58.2 - Mixed irritable bowel syndrome Plan Patient reports right upper quadrant pain. Area nontender. Will send her for HIDA scan to rule out CBD obstruction. Lipase was normal on likely pancreatitis. Mildly low vitamin D level will start her on replacement. Patient can take Senokot 2 tablets every evening to help her eliminate bowels better. Discussed with patient low FODMAP diet and trying to stick to it as much as she can. Patient was also encouraged to increase fluid intake and activity to promote better bowel motility. I will see her in 6 weeks, sooner on as needed basis. Patient is agreeable to this plan and verbalizes understanding of instructions. She was given the opportunity to ask questions and all questions answered. Thank you for allowing me to participate in her care Orders: Orders NM hepatobiliary wo pharm Today R10.11 - Right upper quadrant pain, R14.0 - Abdominal distension (gaseous) Medications: New cholecalciferol (vitamin D3) 50 mcg PO DAILY 90 caps 3RF R79.89 - Other sp ecified abnormal findings of blood chemistry Changed From sennosides (Natural Senna Laxative) 8.6 mg PO BEDTIME 30 tabs 3RF constip ation K59.00 - Constipation, unspecified To sennosides (Natural Senna Laxative) 17.2 mg (2 x 8.6 mg) PO BEDTIME 30 tabs 3RF constipation K59.00 - Constipation, unspecified Coding Level of Care Code Est Pt Level 4 (73720) Diagnoses Postprandial abdominal pain in left upper quadrant R10.12 Abdominal bloating R14.0 Slow transit constipation K59.01 Constipation type: slow transit constipation Postprandial diarrhea K52.9 RUQ abdominal pain R10.11 Irritable bowel syndrome with both constipation and diarrhea K58.2 Irritable bowel syndrome type: with both diarrhea and constipation Time Spent (min) 35 Comment 20 minutes spent with patient and additional 10 minutes spent reviewing her records
== END 2023-10-11 16:51 | disposition home or self-care (01) ==
PROVIDERS: PCP Registered Nurse; Visit Provider Nurse Practitioner Family
DX: R10.12 Left upper quadrant pain (principal); R14.0 Abdominal distension (gaseous); K59.01 Slow transit constipation; K52.9 Noninfective gastroenteritis and colitis, unspecified; R10.11 Right upper quadrant pain; K58.2 Mixed irritable bowel syndrome
CPT/HCPCS: 99214

== ENCOUNTER → 2023-10-11 16:15 | Outpatient (BNVA) | payer OTHER, MEDICAID, SELFPAY | PROVIDERS: PCP Registered Nurse; Visit Provider Nurse Practitioner Family ==

== ENCOUNTER → 2023-10-15 07:50 | Outpatient (REF) | payer OTHER, MEDICAID, SELFPAY ==
--- NOTE | ~2023-10-15 | NM_ITS ---
EXAMINATION: BILIARY TRACT IMAGING STUDY CLINICAL INDICATION: Abdominal distention. Right upper quadrant pain. Suspected CBD obstruction. Status post cholecystectomy on 06/03/2023. COMPARISON: Abdominal ultrasound done on 04/20/2023. TECHNIQUE: Scintillation camera images were obtained over the abdomen for an observation of 120 minutes following the intravenous administration of 5.0 millicuries technetium 99m mebrofenin.. FINDINGS: There is good concentration of activity in the liver by 5 minutes post injection. Biliary activity is well visualized by 10 minutes, and there is good visualization of small bowel activity by 50 minutes. The gallbladder is surgically absent. NM/NM hepatobiliary wo pharm IMPRESSION: 1. Surgically absent gallbladder. 2. Otherwise unremarkable study. Specifically, no evidence of any CBD obstruction or biliary leak is identified.
== END ==
LOC: HO.NUCMED 07:50
PROVIDERS: PCP Registered Nurse; Visit Provider Nurse Practitioner Family
DX: R10.11 Right upper quadrant pain (principal); R14.0 Abdominal distension (gaseous)
CPT/HCPCS: 78226; A9537

== ENCOUNTER 2023-10-19 16:13 | Outpatient (REF) | payer OTHER, MEDICAID, SELFPAY ==
[2023-10-19 18:05] LABS: Appearance Urine Clear; Color Urine Yellow; Glucose Urine UA Negative (Negative); Leukocyte Esterase Urine Trace (Negative); Nitrite Urine Negative (Negative); Specific Gravity - Urine 1.025 (1.005-1.025); UMIC TRIGGER UA YES; Urine Blood Negative (Negative); Urine Ketones Negative (Negative); Urine Protein Negative (Neg-Trace)
[2023-10-19 18:19] LABS: Uric Acid 6.9 mg/dL (2.4-5.7)
[2023-10-19 18:36] LABS: Bacteria Urine 1+ (None Seen); Hyaline Casts Urine 0-2 /LPF (0-2); RBC Urine 0-2 /HPF (0-2)
[2023-10-20 07:32] LABS: Parathyroid Hormone Intact 94.3 pg/mL (8.7-77.1)
== END 2023-10-19 16:14 | disposition home or self-care (01) ==
LOC: HO.LAB 16:13
PROVIDERS: PCP Registered Nurse; Visit Provider Internal Medicine Hypertension Specialist
DX: Q61.5 Medullary cystic kidney (principal); N20.0 Calculus of kidney
CPT/HCPCS: 36415; 81001; 82570; 83970; 84550

== ENCOUNTER 2023-10-19 16:13 | Outpatient (AMB) | payer OTHER, MEDICAID, SELFPAY ==
[2023-10-19 16:12] VITALS: BP 142/88; PULSE 76; O2SAT 99; BMI 28.6
--- NOTE | 2023-10-19 16:12 | HO.NEPHOV ---
HPI HPI Comments History of Present Illness Details 38-year-old woman with a history of nephrolithiasis and hypertension. Back in 2021 she experienced severe back pain and was in the emergency room. CT scan showed multiple renal calculi and the imaging was suggestive of medullary sponge kidney. She has been referred for further evaluation of renal stones. History of hypertension for the last 14 years. 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 Currently she is on amlodipine 10 mg and olmesartan 40 mg. She underwent cholecystectomy in May 2023 and has been having diarrhea since surgery. Continue being worked up for the same [facility] Medical History (Updated 10/19/23 @ 16:42 by Ector Azul MD) HTN (hypertension) Surgical History History of laparoscopic cholecystectomy (06/03/23) History of abdominoplasty H/O: hysterectomy Family History Mother Throat cancer Maternal Aunt Breast cancer Social History Alcohol intake: current Alcohol intake frequency: holidays/special occasions only Patient Tobacco Use Status: Never used Tobacco Vital Signs 10/19/23 16:12 10/19/23 16:33 Height 5 ft 9 in Weight 193 lb 8 oz BMI 28.6 BP 142/88 H 134/80 Blood Pressure Location Lt brachial Position Sitting Pulse 76 Pulse Source Pulse Oximeter Pulse Oximetry (%) 99 Oxygen Delivery Method Room Air Physical Exam Vital Signs: Last Vital Signs Pulse 76 10/19/23 16:12 BP 134/80 10/19/23 16:33 Pulse Ox 99 10/19/23 16:12 Oxygen Delivery Method Room Air 10/19/23 16:12 BMI result Body Mass Index 28.6 Const General: comfortable; No acute distress Orientation/consciousness: patient oriented x3 Eyes General: appearance normal, both eyes and all related structures Visual Granado: normal visual granado by confrontation Neck Neck: Yes supple and Yes no JVD Resp Effort & Inspection: normal respiratory effort and respiratory effort not decreased Auscultation: rhonchi Cardio Palpation: no palpable S3 and no palpable S4 Heart sounds: no rubs GI Inspection: Yes normal to inspection Palpation (GI): Soft to palpation Percussion: Yes normal to percussion Auscultation: normal bowel sounds General: Yes no CVA tenderness Back/Spine/Pelvis Back: no CVA tenderness Skin General skin exam: no petechiae and no purpura Neuro General: patient oriented x3 and no focal motor deficits Extrem General: No clubbing and No edema Assessment & Plan Assessment & Plan (1) Nephrolithiasis: Code(s): N20.0 - Calculus of kidney (2) Medullary sponge kidney: Code(s): Q61.5 - Medullary cystic kidney Plan Middle-aged woman with a history of multiple renal stones and imaging suggestive of medullary sponge kidney. History of hypertension. I have initiated workup for the nephrolithiasis. Obtain 24 urine collection and based on the composition we can tailor her diet and make further recommendations. In the meantime increase her to stand low-sodium diet. Increase fluid intake to maintain urine output of 2 L. Hyper tension blood pressure well controlled no changes were made in antihypertensive regimen. Orders: Orders Sodium, 24Hr Urine Group Today N20.0 - Calculus of kidney, Q61.5 - Medullary cystic kidney Calcium, 24 Hr Ur Today N20.0 - Calculus of kidney, Q61.5 - Medullary cystic kidney Uric Acid, 24Hr Urine Group Today N20.0 - Calculus of kidney, Q61.5 - Medullary cystic kidney UA and rflx microscopic Today N20.0 - Calculus of kidney, Q61.5 - Medullary cystic kidney Uric Acid Today N20.0 - Calculus of kidney, Q61.5 - Medullary cystic kidney Creatinine, 24 Hr Group Today N20.0 - Calculus of kidney, Q61.5 - Medullary cystic kidney Oxalate, 24 Hr Today N20.0 - Calculus of kidney, Q61.5 - Medullary cystic kidney Citric Acid 24hr Urine Today N20.0 - Calculus of kidney, Q61.5 - Medullary cystic kidney Creatinine Urine Today N20.0 - Calculus of kidney, Q61.5 - Medullary cystic kidney Parathyroid Hormone Intact Today N20.0 - Calculus of kidney, Q61.5 - Medullary cystic kidney Total Protein Urine Random Today N20.0 - Calculus of kidney, Q61.5 - Medullary cystic kidney Coding Level of Care Code New Pt Level 4 (37809) Diagnoses Nephrolithiasis N20.0 Medullary sponge kidney Q61.5 Results Reviewed Nephrology Results: Hgb 13.1 g/dl (12.0-16.0) 06/28/23 WBC 6.6 X10*3/uL (4.8-10.8) 06/28/23 Plt Count 311 X10*3/uL (160-400) 06/28/23 Sodium 139 mmol/L (135-145) 06/28/23 Potassium 4.6 mmol/L (3.3-5.1) 06/28/23 Chloride 108 mmol/L (96-108) 06/28/23 Carbon Dioxide 25 mmol/L (22-29) 06/28/23 BUN 13 mg/dL (9-16) 06/28/23 Creatinine 0.81 mg/dL (0.5-1.4) 06/28/23 Calcium 9.5 mg/dL (8.4-10.2) 06/28/23 Urine Protein Negative mg/dL (Neg-Trace) 08/13/23
[2023-10-19 16:33] VITALS: BP 134/80
== END 2023-10-19 16:39 | disposition home or self-care (01) ==
PROVIDERS: PCP Registered Nurse; Visit Provider Internal Medicine Hypertension Specialist
DX: N20.0 Calculus of kidney (principal); Q61.5 Medullary cystic kidney
CPT/HCPCS: 99204

== ENCOUNTER 2023-11-22 08:21 | Outpatient (REF) | payer OTHER, SELFPAY ==
[2023-11-23 19:39] LABS: Calcium, 24 Hr Urine 267 mg/24 h; Calcium/Creatinine Ratio 148 mg/g creat (30-275)
[2023-11-28 03:58] LABS: 24hr Urine Total Volume 1975 mL; Citric Acid, 24hr Urine 296 mg/24 h (100-1300); Citric Acid/Creat Ratio 24U 170 mg/g creat (180-1070)
== END 2023-11-22 08:22 | disposition home or self-care (01) ==
LOC: HO.LNP 08:21
PROVIDERS: Visit Provider Internal Medicine Hypertension Specialist
DX: Q61.5 Medullary cystic kidney (principal); N20.0 Calculus of kidney
CPT/HCPCS: 82340; 82507; 83945; 84300; 84560

== ENCOUNTER 2023-11-29 16:21 | Outpatient (AMB) | payer OTHER, MEDICAID, SELFPAY ==
[2023-11-29 16:23] VITALS: BP 118/74; PULSE 90; O2SAT 98; BMI 28.4
--- NOTE | 2023-11-29 16:23 | HO.NEPHOV_ITS ---
HPI HPI Comments History of Present Illness Details 38-year-old woman with a history of neph rolithiasis and hypertension. Back in 2021 she experienced severe back pain and was in the emergency room. CT scan showed multiple renal calculi and the imaging was suggestive of medullary sponge kidney. She has been referred for further evaluation of renal stones. History of hypertension for the last 14 years. 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 Currently she is on amlodipine 10 mg and olmesartan 40 mg. She underwent cholecystectomy in May 2023 and has been having diarrhea since surgery. Continue being worked up for the same [facility] Medical History (Updated 10/19/23 @ 16:42 by Ector Azul MD) HTN (hypertension) Surgical History History of laparoscopic cholecystectomy (06/03/23) History of abdominoplasty H/O: hysterectomy Family History Mother Throat cancer Maternal Aunt Breast cancer Social History Alcohol intake: current Alcohol intake frequency: holidays/special occasions only Patient Tobacco Use Status: Never used Tobacco Vital Signs 11/29/23 16:23 Height 5 ft 9 in Weight 192 lb 6 oz BMI 28.4 BP 118/74 Blood Pressure Location Lt brachial Position Sitting Pulse 90 Pulse Source Pulse Oximeter Pulse Oximetry (%) 98 Oxygen Delivery Method Room Air Physical Exam Vital Signs: Last Vital Signs Pulse 90 11/29/23 16:23 BP 118/74 11/29/23 16:23 Pulse Ox 98 11/29/23 16:23 Oxygen Delivery Method Room Air 11/29/23 16:23 BMI result Body Mass Index 28.4 Const General: comfortable Nutritional Appearance: well nourished Orientation/consciousness: patient oriented x3 HEENT Head: No normal to inspection Mouth: moist mucous membranes Neck Neck: Yes supple and Yes no JVD Resp Auscultation: clear to auscultation bilaterally, no rales and rub present Cardio Jugular venous distension: no JVD Palpation: no palpable S3 and no palpable S4 Heart sounds: no rubs GI Palpation (GI): Soft to palpation and nontender Percussion: No Fluid wave present General: Yes no CVA tenderness Back/Spine/Pelvis Back: no CVA tenderness Skin General skin exam: no rashes or lesions noted Neuro General: patient oriented x3 Extrem General: Yes no pedal edema and No clubbing Assessment & Plan Assessment & Plan (1) Nephrolithiasis: Code(s): N20.0 - Calculus of kidney (2) Medullary sponge kidney: Code(s): Q61.5 - Medullary cystic kidney Plan Middle-aged woman with a history of multiple renal stones and imaging suggestive of medullary sponge kidney. History of hypertension. workup for the nephrolithiasis in progress 24 hr urine showed Uricosuria and hypercalciuria Interestingly, intact PTH was elevated at 97 pg/ml ! Serum calcium has been normal She is on Vit D supplements In the meantime stay on low-sodium diet. Increase fluid intake to maintain urine output of 2 L. Advised LOW PURINE diet REPEAT 24 urine collection She she has persistent hypercalcuria and uricosuria.needs further therapy. If possible, should get a stone analysis Hypertension blood pressure well controlled no changes were made in antihypertensive regimen. Orders: Orders Sodium, 24Hr Urine Group 1 Month N20.0 - Calculus of kidney Parathyroid Hormone Intact 1 Month N20.0 - Calculus of kidney Creatinine 1 Month N20.0 - Calculus of kidney Calcium 1 Month N20.0 - Calculus of kidney Uric Acid, 24Hr Urine Group 1 Month N20.0 - Calculus of kidney Creatinine, 24 Hr Group 1 Month N20.0 - Calculus of kidney Calcium, 24 Hr Ur 1 Month N20.0 - Calculus of kidney Uric Acid 1 Month N20.0 - Calculus of kidney Phosphorus 1 Month N20.0 - Calculus of kidney Electrolytes 1 Month N20.0 - Calculus of kidney Blood Urea Nitrogen 1 Month N20.0 - Calculus of kidney Coding Level of Care Code Est Pt Level 4 (30301) Diagnoses Nephrolithiasis N20.0 Medullary sponge kidney Q61.5 Results Reviewed Results Reviewed: Gallbladder, cholecystectomy: -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 -Chronic cholecystitis. Comment: There is no invasion and the cystic duct margin is free of dysplasia Nephrology Results: PTH Intact 94.3 pg/mL (8.7-77.1) H 10/19/23 Urine Protein Negative mg/dL (Neg-Trace) 10/19/23 Urine Creatinine 172.80 mg/dL 10/19/23
== END 2023-11-29 16:49 | disposition home or self-care (01) ==
PROVIDERS: PCP Registered Nurse; Visit Provider Internal Medicine Hypertension Specialist
DX: N20.0 Calculus of kidney (principal); Q61.5 Medullary cystic kidney
CPT/HCPCS: 99214

== ENCOUNTER → 2023-11-29 16:21 | Outpatient (BNVA) | payer OTHER, MEDICAID, SELFPAY | PROVIDERS: PCP Registered Nurse; Visit Provider Internal Medicine Hypertension Specialist ==

== ENCOUNTER 2023-11-30 16:23 | Outpatient (AMB) | payer OTHER, MEDICAID, SELFPAY ==
[2023-11-30 16:26] VITALS: BP 149/90; PULSE 69; BMI 28.4
--- NOTE | 2023-11-30 16:26 | A.OFFVIS_ITS ---
Intake Vital Signs 11/30/23 16:26 Height 5 ft 9 in Weight 192 lb BMI 28.4 BP 149/90 H Blood Pressure Location Lt brachial Position Sitting Pulse 69 Intake Visit Reasons: 6 weeks follow up Intake Note: Patient returns to in office visit today in follow up of 6 weeks follow up of abdominal pain. CC: Patient continues to reports that she is able to have BM with senna but she still feels she needs to empty her bowels. She also reports abdominal bloating. She states nausea and acid reflux are not as much. Delivery Clerk Required: No Accompanied by: Self / Same As Patient Allergies adhesive tape Allergy (Intermediate, Verified 11/30/23 16:29) Rash latex Allergy (Intermediate, Verified 11/30/23 16:29) Rash HPI 6 weeks follow up HPI Details LAST VISIT Postprandial abdominal pain in left upper quadrant Abdominal bloating Constipation Postprandial diarrhea RUQ abdominal pain IBS (irritable bowel syndrome) Plan Patient reports right upper quadrant pain. Area nontender. Will send her for HIDA scan to rule out CBD obstruction. Lipase was normal on likely pancreatitis. Mildly low vitamin D level will start her on replacement. Patient can take Senokot 2 tablets every evening to help her eliminate bowels better. Discussed with patient low FODMAP diet and trying to stick to it as much as she can. Patient was also encouraged to increase fluid intake and activity to promote better bowel motility. I will see her in 6 weeks, sooner on as needed basis. Patient is agreeable to this plan and verbalizes understanding of instructions. She was given the opportunity to ask questions and all questions answered. ? Thank you for allowing me to participate in her care Orders Orders NM hepatobiliary wo pharm Today R10.11, R14.0 Medications New cholecalciferol (vitamin D3) 50 mcg PO DAILY 90 caps 3RF R79.89 Changed Changed From sennosides (Natural Senna Laxative) 8.6 mg PO BEDTIME 30 tabs 3RF constipati on K59.00 Changed To sennosides (Natural Senna Laxative) 17.2 mg (2 x 8.6 mg) PO BEDTIME 30 tabs 3RF constipation K59.00 TODAY'S VISIT: Patient is here today for follow-up and to discuss HIDA scan results. Normal HIDA scan study that was discussed with patient. Patient reports that she has been feeling well except for she continues to be constipated. 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 Patient states that she was diagnosed with medullary sponge kidney disease, supposed to go for lithotripsy. Patient has multiple kidney stones. Patient is on sure when the procedure will be scheduled for. Currently she is taking senna and reports that she continues to be constipated. Patient also reports abdominal bloating. Symptoms of acid reflux for the most part are suppressed, however occasionally patient will have dyspepsia without dysphagia or odynophagia. Patient states that pantoprazole has been working, feeling better when she takes it. Patient denies melena, hematochezia, unintentional weight loss or ribbon like stools. Patient denies any other GI concerning symptoms PFSH Medical History HTN (hypertension) Surgical History History of laparoscopic cholecystectomy (06/03/23) History of abdominoplasty H/O: hysterectomy Family History Mother Throat cancer Maternal Aunt Breast cancer Social History Alcohol intake: current Alcohol intake frequency: holidays/special occasions only Patient Tobacco Use Status: Never used Tobacco Review of Systems Const Denies weight gain and Denies weight loss ENT Reports no additional complaints, Denies dysphagia and Denies odynophagia Card Reports no additional complaints Resp Reports no additional complaints GI Denies abdominal pain, Denies belching, Denies melena, Reports bloating, Reports constipation, Denies dysphagia, Denies excessive flatus, Denies dyspepsia, Denies heartburn, Denies diarrhea, Denies loose stools, Reports nausea, Denies odynophagia and Denies vomiting Reports no additional complaints Musc Reports no additional complaints Neuro Reports no additional complaints Psych Reports no additional complaints Endo Reports no additional complaints Physical Exam Vital Signs: Last Vital Signs Pulse 69 11/30/23 16:26 BP 149/90 H 11/30/23 16:26 BMI result Body Mass Index 28.4 Const General: healthy appearing, no acute distress and well developed Nutritional Appearance: well nourished Orientation/consciousness: patient oriented x3 Resp Effort & Inspection: normal respiratory effort, able to speak in complete sentences, no tracheal deviation and symmetric chest movement Auscultation: clear to auscultation bilaterally Cardio Rate: regular rate GI Inspection: Yes normal to inspection and No distended Palpation (GI): Soft to palpation, not firm, nontender and No hepatosplenomegaly present Auscultation: normal bowel sounds General: Yes no CVA tenderness Back/Spine/Pelvis Back: no CVA tenderness Skin General skin exam: elasticity normal, turgor normal and dry skin Neuro General: patient oriented x3 Psych Appearance: grossly normal Mental Status: mental status grossly normal Results Reviewed Results Reviewed: HIDA SCAN 10/15/2023 FINDINGS: There is good concentration of activity in the liver by 5 minutes post injection. Biliary activity is well visualized by 10 minutes, and there is good visualization of small bowel activity by 50 minutes. The gallbladder is surgically absent. NM/NM hepatobiliary wo pharm IMPRESSION: 1. Surgically absent gallbladder. 2. Otherwise unremarkable study. Specifically, no evidence of any CBD obstruction or biliary leak is identified. Assessment & Plan Assessment & Plan (1) Postprandial abdominal pain in left upper quadrant: Code(s): R10.12 - Left upper quadrant pain (2) Abdominal bloating: Code(s): R14.0 - Abdominal distension (gaseous) (3) Constipation: Code(s): K59.00 - Constipation, unspecified Qualifiers: Constipation type: slow transit constipation Qualified Code(s): K59.01 - Slow transit constipation (4) Postprandial diarrhea: Code(s): K52.9 - Noninfective gastroenteritis and colitis, unspecified (5) RUQ abdominal pain: Code(s): R10.11 - Right upper quadrant pain (6) IBS (irritable bowel syndrome): Code(s): K58.9 - Irritable bowel syndrome without diarrhea Qualifiers: Irritable bowel syndrome type: without diarrhea Qualified Code(s): K58.9 - Irritable bowel syndrome without diarrhea Plan Patient will start taking Linzess 145 mcg daily. She will call me in couple weeks if she continues to be constipated. Patient was encouraged to increase fluid intake and activity to promote better bowel motility. Patient will be schedule for upper endoscopy to rule out gastritis, esophagitis, duodenitis, gastric or peptic ulcers, Hayes's, H pylori. Continue pantoprazole. Avoid dietary triggers and late night snacking. Staying upright for minimum 3 hours after meals discussed with patient. Patient denies any issues with anesthesia. No history of sleep apnea. Not on any anticoagulation medication. Patient is agreeable to current plan and verbalizes understanding of instructions. She was given the opportunity to ask questions and all questions answered. Thank you for allowing me to participate in her care Medications: New linaclotide (Linzess) 145 mcg PO DAILY 90 caps 3RF K59.04 - Chronic idiopathic constipation hydrocortisone 2.5% (Proctosol HC) 1 appl MT BID-QID PRN 30 grams 2RF hemorrhoids K64.9 - Unspecified hemorrhoids hydrocortisone acetate (Anucort-HC) 25 mg MT BID 24 ea 2RF Coding Level of Care Code Est Pt Level 4 (30819) Diagnoses Postprandial abdominal pain in left upper quadrant R10.12 Abdominal bloating R14.0 Slow transit constipation K59.01 Constipation type: slow transit constipation Postprandial diarrhea K52.9 RUQ abdominal pain R10.11 Irritable bowel syndrome without diarrhea K58.9 Irritable bowel syndrome type: without diarrhea Time Spent (min) 40 Comment 25 minutes spent with patient and additional 15 minutes spent reviewing her records
== END 2023-12-01 11:33 | disposition home or self-care (01) ==
PROVIDERS: PCP Registered Nurse; Visit Provider Nurse Practitioner Family
DX: R10.12 Left upper quadrant pain (principal); K59.01 Slow transit constipation; R14.0 Abdominal distension (gaseous); K52.9 Noninfective gastroenteritis and colitis, unspecified; R10.11 Right upper quadrant pain; K58.9 Irritable bowel syndrome, unspecified
CPT/HCPCS: 99214

== ENCOUNTER → 2023-11-30 16:23 | Outpatient (BNVA) | payer OTHER, MEDICAID, SELFPAY | PROVIDERS: PCP Registered Nurse; Visit Provider Nurse Practitioner Family ==

== ENCOUNTER 2023-12-03 09:14 | Day surgery (SDC) | payer OTHER, SELFPAY ==
--- NOTE | 2023-12-03 09:45 | MHC.SHP ---
Pre-Procedural Eval Section A Date of Service: 12/03/23 The patient is an INPATIENT: No Changes since office visit: Yes Patient answered all questions; No Cold of Flu in the past 2 weeks, No New Medical Problems and No Changes in Medication The History & Physical has been completed within 30 days and I have reviewed it.: Yes Section B Chief Complaint: GERD, dyspepsia, abdominal bloating Allergies: Allergies Allergy/AdvReac Type Severity Reaction Status Date / Time adhesive tape Allergy Intermediate Rash Verified 11/30/23 16:29 latex Allergy Intermediate Rash Verified 11/30/23 16:29 Plan Diagnosis/Plan: Unchanged I have reviewed the history and physical and performed a pertinent physical examination on my patient. No changes have occurred unless specified. Time Spent With Patient Time: Total time managing care of this patient today ____ minutes.
--- NOTE | 2023-12-03 09:51 | HO.ANESPROP2 ---
HPI - Anesthesia Eval Consult details Narrative: for colonoscopy PMFSH Active Problems Active Problems: All Active Problems (Updated 06/10/23 @ 11:28 by KE Olson) HTN (hypertension) (Acute) Nephrolithiasis (Acute) Bilateral kidney stones (Acute) Medullary sponge kidney (Acute) Gallbladder polyp (Acute) Past Medical History Medical History HTN (hypertension) Family History Family History Mother Throat cancer Maternal Aunt Breast cancer Family history of problems with anesthesia: No Surgical History Surgical History History of laparoscopic cholecystectomy (06/03/23) History of abdominoplasty H/O: hysterectomy History of Problems with Anesthesia: No Social History Social History Alcohol intake: current Alcohol intake frequency: holidays/special occasions only Patient Tobacco Use Status: Never used Tobacco Advance Directives: No Advance Directives Information Provided: Yes Meds Allergies Allergy/AdvReac Type Severity Reaction Status Date / Time adhesive tape Allergy Intermediate Rash Verified 11/30/23 16:29 latex Allergy Intermediate Rash Verified 11/30/23 16:29 Home Medications Medication Instructions Recorded Confirmed Last Taken Type amlodipine 10 mg tablet 1 tab PO DAILY 02/06/21 06/03/23 06/03/23 History olmesartan 20 mg tablet 20 mg PO QAM 06/03/23 06/03/23 Unknown History pantoprazole 40 mg tablet,delayed 40 mg PO DAILY 10/11/23 Unknown History release Exam Airway Mallampati Class: II TM Dist: >3cm Neck ROM: Full Heart: rrr Lungs: cta Assessment and Plan Assessment Anesthesia Assessment: Anesthesia Plan Discussed and Chart Reviewed Final Anesthetic Review Family History of Problems with Anesthesia: No History of Problems with Anesthesia: No NPO: Yes ASA Class: II Final Preanesthetic Review: No Changes in Pt Med Stat, Meds/Allgs Chart Reviewed, Consent Obtained/Reviewed and Anes Risks/Benef Reviewed Patient Risk: Low Procedure Risk: Low Anesthetic Plan Anesthetic Plan: MAC: Disposition: Standard PACU
[2023-12-03 10:13] LABS: UPreg QC Valid YES; Urine Pregnancy NEGATIVE (NEGATIVE)
--- NOTE | 2023-12-03 10:19 | P.OP_ITS ---
Operative Note Operative Note Date of Service: 12/03/23 Narrative: FLEXIBLE TRANSORAL UPPER GASTROINTESTINAL ENDOSCOPY WITH BIOPSIES Pre-op diagnosis: GERD, abdominal pain, dyspepsia, abdominal bloating Post-op diagnosis: Gastritis and gastric polyps Endoscopist:? Carlton Bowman MD Anesthesia:?MAC Consent: Indications for the procedure and potential complications of bleeding, perforation, reaction to medications and missed diagnosis were discussed with the patient and informed consent was obtained. Instrument: Olympus GIF H 190 mid size upper endoscope Monitoring: Vital signs and clinical assessment, continuous EKG monitoring, Pulse oximetry, Carbon Dioxide monitoring and blood pressure monitoring were done throughout the procedure. Procedure: The patient was placed in the left lateral decubitis position and pre-procedure medications were administered and a bite block was placed. The endoscope was inserted into the mouth and advanced under direct vision to the third part of duodenum. A careful inspection was made as the upper endoscope was withdrawn including a retroflexed examination of the proximal stomach; Findings and interventions are described below. Findings: Larynx: Normal Esophagus: GE junction at 36 cms. No esophagitis or Hayes's. Stomach: Mild gastric erythema. Biopsies were obtained. Multiple 5 to 12 mm benign appearing polyps in the fundus and body - biopsied. Grade 2 flap valve on retroflexed examination of the cardia. Duodenum: Normal bulb and descending duodenum. Biopsies were obtained from 3rd part of the duodenum to check for celiac sprue. Intervention: Biopsies as noted above Impression and Post Procedure Diagnosis: Endoscopy Findings: STOMACH: Multiple 5 to 12 mm benign appearing polyps in the fundus and body - biopsied. DUODENUM: Normal - biopsied to check for celiac sprue Plan: Await pathology results Patient has an appointment on 12/20/23 in the GI Clinic with Debbie Robbins FNP- [facility]. Above findings were reviewed with the patient and Gastric Polyps handout was given in the discharge area
[2023-12-03 10:22] VITALS: BMI 27.5
[2023-12-03] MEDS: Lactated Ringers 1,000 ML 100 ML IVCONT (10:27)
[2023-12-03 10:53] VITALS: BP 110/61; PULSE 76; RESP 18; TEMP 36.1; O2SAT 96
[2023-12-03 11:08] VITALS: BP 121/76; PULSE 70; RESP 18; TEMP 36.7; O2SAT 98
== END 2023-12-03 11:33 | disposition home or self-care (01) ==
PROVIDERS: Anesthesiology; PCP Registered Nurse; Visit Provider Internal Medicine Gastroenterology
PROC: 0DJ08ZZ Inspection of Upper Intestinal Tract, Via Natural or Artificial Opening Endoscopic (ICD-10-PCS; CPT 43235; principal; 2023-12-03 10:30)
DX: K31.7 Polyp of stomach and duodenum (principal); K29.60 Other gastritis without bleeding; K21.9 Gastro-esophageal reflux disease without esophagitis; I10 Essential (primary) hypertension; Z79.899 Other long term (current) drug therapy
CPT/HCPCS: 43239; 81025; 88305; 88342; J2704

== ENCOUNTER → 2023-12-03 09:14 | Outpatient (BNV) | payer OTHER, SELFPAY | PROVIDERS: PCP Registered Nurse; Visit Provider Internal Medicine Gastroenterology | DX: K21.9 Gastro-esophageal reflux disease without esophagitis (principal); K30 Functional dyspepsia; K31.7 Polyp of stomach and duodenum; K29.70 Gastritis, unspecified, without bleeding | CPT/HCPCS: 43239 ==

== ENCOUNTER 2023-12-07 15:40 | Outpatient (AMB) | payer OTHER, MEDICAID, SELFPAY ==
--- NOTE | 2023-12-07 15:43 | A.OFFVIS_ITS ---
Intake Intake Visit Reasons: H&P Left ESWL Intake Note: Patient presents today for a follow-up on H&P Left ESWL: Meds- None Allergies to Antibiotic- No Known Allergies Blood Thinner- None Biomedical Analytical Scientist Required: Yes Accompanied by: Self / Same As Patient Allergies adhesive tape Allergy (Intermediate, Verified 12/07/23 15:44) Rash latex Allergy (Intermediate, Verified 12/07/23 15:44) Rash HPI HPI Comments History of Present Illness Details Rosa is a 38-year-old female who presents today to the office for a follow-up. 12/06/23- Rosa is followed for nephrolithiasis. CoMorbidity - Htn. She is followed today preop Left ESWL. She had referral to postal delivery officer for further evaluation of her kidney stones and hypertension. She has had UTI's in the past: UA today - no signs of infection Reviewed KUB 07/30/23---Redemonstration of 7 mm left renal calculus. Multiple tiny bilateral renal calculi. Review of chart: KUB X-ray results from 07/30/23 revealed redemonstration of 7 mm left renal calculus. Multiple tiny bilateral renal calculi. Abdomen US results reviewed?04/20/23-- Questionable medullary sponge kidney with multiple bilateral nonobstructing stones.? CTAP? results reviewed--12/29/21--Bilateral? nonobstructing renal stones. Urine culture results from 08/13/23 which came back Citrobacter koseri > 100,000 cfu/mL. 12/07/23: Plan: Left ESWL. Discussed Left ESWL. Discussed risks to include but not limited to, blood in the urine, bruising to the skin, kidney hematoma, possible need for another procedure if a stone fragment obstructs the ureter while passing, possible need to repeat procedure if stone is not completely fragmented. [facility] Medical History HTN (hypertension) Surgical History Hx of lithotripsy History of laparoscopic cholecystectomy (06/03/23) History of abdominoplasty H/O: hysterectomy Family History Mother Throat cancer Maternal Aunt Breast cancer Social History Alcohol intake: current Alcohol intake frequency: 0-2 drinks per day Patient Tobacco Use Status: Never used Tobacco Review of Systems Const All systems reviewed & are unremarkable except as noted in HPI and below Reports no additional complaints Eyes Reports no additional complaints ENT Reports no additional complaints Card Denies dyspnea Resp Denies cough and Denies dyspnea GI Reports no additional complaints Reports no additional complaints Musc Reports no additional complaints Skin/Breast Denies rash and Denies unusual bruising Neuro Reports no additional complaints Psych Reports no additional complaints Endo Reports no additional complaints Jose/Lymph Reports no additional complaints Aller/Immun Reports no additional complaints Physical Exam Const General: cooperative, healthy appearing and no acute distress Orientation/consciousness: patient oriented x3 HEENT Head: Yes normal to inspection, Yes normocephalic and Yes atraumatic Eyes Conjunctivae: conjunctivae normal Neck Neck: Yes normal visual inspection and Yes trachea midline Chest Chest palpation & inspection: normal inspection of the chest Resp Effort & Inspection: normal respiratory effort Cardio Rate: regular rate GI Inspection: Yes normal to inspection Skin General skin exam: no rashes or lesions noted Neuro General: patient oriented x3 Extrem General: No edema Psych Appearance: grossly normal Results AMB Urinalysis, Automated UA Leukoctes 0 Donnie/uL Last Edit by Mariaa Waters CMA on 12/07/23 16 :11 UA Nitrite Negative Last Edit by Mariaa Waters CMA on 12/07/23 16: 11 UA Urobilinogen 0.2 mg/dL Last Edit by Mariaa Waters CMA on 4 16:11 UA Protein 0 mg/dL Last Edit by Mariaa Waters CMA on 12/07/23 16:11 UA pH 6.5 Last Edit by Mariaa Waters CMA on 12/07/23 16:11 UA Blood 0 Neil/uL [facility] Edit [facility] on 12/07/23 16:11 UA Specific [place] 1.010 Last Edit by [facility] on 16:11 UA Ketone Negative Last Edit by [facility] on 12/07/23 16:1 1 UA Bilirubin 0 mg/dL Last Edit by [facility] on 12/07/23 16: 11 UA Glucose 0 mg/dL Last Edit by [facility] on 12/07/23 16:11 Results Reviewed Results Reviewed: Laboratory Last Values Urine pH (Auto) 6.5 12/07/23 16:06 Specific [place] (Auto) 1.010 12/07/23 16:06 Urine Protein (Auto) 0 mg/dL 12/07/23 16:06 Glucose (UA)(Auto) 0 mg/dL 12/07/23 16:06 Urine Ketones (Auto) Negative 12/07/23 16:06 Urine Blood (Auto) 0 Neil/uL 12/07/23 16:06 Urine Nitrite (Auto) Negative 12/07/23 16:06 Urine Bilirubin (Auto) 0 mg/dL 12/07/23 16:06 Urine Urobilinogen (Auto) 0.2 mg/dL 12/07/23 16:06 Leukocyte Esterase (Auto) 0 Donnie/uL 12/07/23 16:06 Date of Service: 07/30/23 EXAMINATION: XR ABDOMEN KUB CLINICAL INDICATION: Calculus of kidney COMPARISON: Ultrasound abdomen 04/20/2023. CT abdomen and pelvis 12/29/2021. TECHNIQUE: 2 AP views of the abdomen. FINDINGS: Nonobstructive bowel gas pattern. Moderate amount of stool in the colon. Visualization of the bilateral kidneys is limited due to overlying bowel. Degenerative changes in the lumbar spine. Redemonstration of 7 mm calculus overlying lower pole of left kidney. Multiple tiny additional calculi again overlie the left kidney. Tiny faint calculi overlying the right kidney. XR/XR KUB IMPRESSION: Redemonstration of 7 mm left renal calculus. Multiple tiny bilateral renal calculi. Assessment & Plan Assessment & Plan (1) Bilateral kidney stones: Code(s): N20.0 - Calculus of kidney (2) Medullary sponge kidney: Code(s): Q61.5 - Medullary cystic kidney Plan Left ESWL. Consent obtained. Orders: Orders AMB Urinalysis Automated Today R33.9 - Retention of urine, unspecified Patient Instructions: The patient had an opportunity to ask questions regarding treatment plan. All questions were answered. Imaging, Laboratory studies and physical exam results were discussed and reviewed in detail. No major barriers to understanding were identified. The patient expressed understanding and agreement with the above treatment plan. The patient is aware they should contact our office by phone for worsening of their current condition or the appearance of new symptoms. Compliance is encouraged with any medications and followup testing that is ordered. It is a privilege to be allowed the opportunity to participate in the urologic care of your patient. If you have any questions or concerns regarding treatment for the above conditions please do not hesitate to contact me. The office telephone contact is [phone]. This note is constructed in part using voice recognition software. While every effort has been made to ensure accuracy public address systems mechanic errors may have been included. Yours sincerely, Chris Crabtree MD Coding Level of Care Code Est Pt Level 4 (98683) Diagnoses Bilateral kidney stones N20.0 Medullary sponge kidney Q61.5
== END 2023-12-07 16:30 | disposition home or self-care (01) ==
PROVIDERS: PCP Registered Nurse; Visit Provider Urology
DX: N20.0 Calculus of kidney (principal); Q61.5 Medullary cystic kidney; R33.9 Retention of urine, unspecified
CPT/HCPCS: 99214

== ENCOUNTER → 2023-12-07 15:40 | Outpatient (BNVA) | payer OTHER, SELFPAY | PROVIDERS: PCP Registered Nurse; Visit Provider Urology | DX: N20.0 Calculus of kidney (principal); Q61.5 Medullary cystic kidney | CPT/HCPCS: 81003 ==

== ENCOUNTER 2023-12-20 16:20 | Outpatient (AMB) | payer OTHER, MEDICAID, SELFPAY ==
--- NOTE | 2023-12-20 16:30 | A.OFFVIS_ITS ---
Intake Vital Signs 12/20/23 16:31 12/20/23 16:31 Height 5 ft 10 in Weight 190 lb 7.67 oz 190 lb BMI 27.3 BP 144/94 H Blood Pressure Location Lt brachial Position Sitting Pulse 77 Intake Visit Reasons: S/P EGD; Dr Bowman Intake Note: Patient presents to in office visit today in follow up s/p EGD. CC: Patient c/o diarrhea and states after starting the Linzess the diarrhea is worst. Per patient she continues having loud gurgling sounds coming from her stomach. She c/o occasional nausea and pain from right side of her navel. 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 She will call me in couple weeks if she continues to be constipated. Patient was encouraged to increase fluid intake and activity to promote better bowel motility. Patient will be s chedule for upper endoscopy to rule out gastritis, esophagitis, duodenitis, gastric or peptic ulcers, Hayes's, H pylori. Continue pantoprazole. Avoid dietary triggers and late night snacking. Staying upright for minimum 3 hours after meals discussed with patient. Patient denies any issues with anesthesia. No history of sleep apnea. Not on any anticoagulation medication. Patient is agreeable to current plan and verbalizes understanding of instructions. She was given the opportunity to ask questions and all questions answered. ? Thank you for allowing me to participate in her care Medications New linaclotide (Linzess) 145 mcg PO DAILY 90 caps 3RF K59.04 hydrocortisone 2.5% (Proctosol HC) 1 appl FL BID-QID PRN 30 grams 2RF hemor rhoids K64.9 hydrocortisone acetate (Anucort-HC) 25 mg FL BID 24 ea 2RF UPPER ENDOSCOPY Findings: Larynx: Normal Esophagus: GE junction at 36 cms. No esophagitis or Hayes's. Stomach: Mild gastric erythema. Biopsies were obtained. Multiple 5 to 12 mm benign appearing polyps in the fundus and body - biopsied. Grade 2 flap valve on retroflexed examination of the cardia. Duodenum: Normal bulb and descending duodenum. Biopsies were obtained from 3rd part of the duodenum to check for celiac sprue. Intervention: Biopsies as noted above Impression and Post Procedure Diagnosis: Endoscopy Findings: STOMACH: Multiple 5 to 12 mm benign appearing polyps in the fundus and body - biopsied. DUODENUM: Normal - biopsied to check for celiac sprue Plan: Await pathology results Patient has an appointment on 12/20/23 in the [facility] with Debbie Robbins FNP- [facility]. Above findings were reviewed with the patient and Gastric Polyps handout was given in the discharge area PATHOLOGY RESULTS Diagnosis A. Small bowel, biopsy: Small intestinal mucosa within normal limits; negative for celiac disease. B. Stomach, antrum, biopsy: Antral-type mucosa with mild chronic inactive inflammation; no Helicobacter organisms seen. C. Stomach, polyps: Fundic gland polyp with background mild chronic inactive inflammation; no Helicobacter organisms seen TODAY'S VISIT Patient is here today for follow-up and to discuss upper endoscopy results. Patient continues to have postprandial abdominal bloating. Patient states that she is unable to eat anything today while working as she has to go to the above often. Patient states that she tries avoiding rice and beans. Avoiding eating lactose. Her symptoms continue. Patient reports feeling very gassy. Patient unable to take Linzess in the morning as she has frequent loose stools. Patient reports dyspepsia without dysphagia or odynophagia. Upper endoscopy results discussed with patient as well as biopsy. Patient takes pantoprazole every morning. Patient reports that when she wakes up in the morning when belching patient feels like she taste blood. That has been going on since before upper endoscopy. As mentioned above no ulcers or anything that would suspect GI bleed noted on upper endoscopy. Patient denies eating late at night. Since her cholecystectomy in May patient reports that her symptoms are worsening. Patient denies melena, hematochezia, unintentional weight loss or ribbon like stools. We ruled out pancreatic insufficiency, no H pylori. Patient had normal HIDA scan, no biliary duct obstruction. PFSH Medical History HTN (hypertension) Surgical History Hx of lithotripsy History of laparoscopic cholecystectomy (06/03/23) History of abdominoplasty H/O: hysterectomy Family History Mother Throat cancer Maternal Aunt Breast cancer Social History Alcohol intake: current Alcohol intake frequency: 0-2 drinks per day Patient Tobacco Use Status: Never used Tobacco Review of Systems Const Denies weight gain and Denies weight loss ENT Reports no additional complaints, Denies dysphagia and Denies odynophagia Card Reports no additional complaints Resp Reports no additional complaints GI Reports abdominal pain (Epigastric), Denies belching, Denies melena, Reports bloating, Denies change in bowel habits, Denies dysphagia, Denies excessive flatus, Reports dyspepsia, Reports heartburn, Denies diarrhea, Denies loose stools, Denies nausea, Denies odynophagia and Denies vomiting Reports no additional complaints Musc Reports no additional complaints Neuro Reports no additional complaints Psych Reports no additional complaints Endo Reports no additional complaints Physical Exam Vital Signs: Last Vital Signs Pulse 77 12/20/23 16:31 BP 144/94 H 12/20/23 16:31 BMI result Body Mass Index 27.3 Const General: healthy appearing, no acute distress and well developed Nutritional Appearance: well nourished Orientation/consciousness: patient oriented x3 Resp Effort & Inspection: normal respiratory effort, able to speak in complete sentences, no tracheal deviation and symmetric chest movement Auscultation: clear to auscultation bilaterally Cardio Rate: regular rate GI Inspection: Yes normal to inspection and No distended Palpation (GI): Soft to palpation, not firm, nontender and No hepatosplenomegaly present Auscultation: normal bowel sounds General: Yes no CVA tenderness Back/Spine/Pelvis Back: no CVA tenderness Skin General skin exam: elasticity normal, turgor normal and dry skin Neuro General: patient oriented x3 Psych Appearance: grossly normal Mental Status: mental status grossly normal Assessment & Plan Assessment & Plan (1) Postprandial abdominal pain in left upper quadrant: Code(s): R10.12 - Left upper quadrant pain (2) Abdominal bloating: Code(s): R14.0 - Abdominal distension (gaseous) (3) Constipation: Code(s): K59.00 - Constipation, unspecified Qualifiers: Constipation type: chronic idiopathic constipation Qualified Code(s): K59.04 - Chronic idiopathic constipation (4) Postprandial diarrhea: Code(s): K52.9 - Noninfective gastroenteritis and colitis, unspecified (5) RUQ abdominal pain: Code(s): R10.11 - Right upper quadrant pain (6) IBS (irritable bowel syndrome): Code(s): K58.9 - Irritable bowel syndrome without diarrhea Qualifiers: Irritable bowel syndrome type: with both diarrhea and constipation Qualified Code(s): K58.2 - Mixed irritable bowel syndrome Plan Continue low FODMAP diet. Stressed the importance of eliminating her bowels completely. Avoiding food that could cause gas and cementation. Patient was encouraged to try elimination the it to see if that works for her better. She will stop Linzess and start taking Dulcolax tablets at nighttime. I will send her for CT scan to rule out diverticulitis. Patient continues to have a left upper quadrant pain. We ruled out pancreatic insufficiency. Patient can try to take Welchol to see if that will help her with her symptoms. CRP negative lower suspicion of IBD, however will send patient to check fecal calprotectin to rule out. I will see patient in 4 weeks, sooner on as needed basis. Patient is agreeable to this plan and verbalizes understanding of instructions. She was given the opportunity to ask questions and all questions answered. Thank you for allowing me to participate in her care Orders: Orders Blood Urea Nitrogen Today R10.11 - Right upper quadrant pain CT abdomen pelvis w IV con Today R10.9 - Unspecified abdominal pain Calprotectin, Fecal Today R15.9 - Full incontinence of feces Creatinine Today R10.11 - Right upper quadrant pain Medications: New bisacodyl (Dulcolax (bisacodyl)) 10 mg (2 x 5 mg) PO BEDTIME 180 tabs 4RF colesevelam (WelChol) 1,250 mg (2 x 625 mg) PO BID 120 tabs 2RF Discontinued sennosides (Natural Senna Laxative) Discontinued Reason: Doctor's Order 17.2 mg (2 x 8.6 mg) PO BEDTIME 30 tabs 3RF constipation K59.00 - Constipation, unspecified linaclotide (Linzess) Discontinued Reason: Doctor's Order 145 mcg PO DAILY 90 caps 3RF K59.04 - Chronic idiopathic constipation Coding Level of Care Code Est Pt Level 4 (60510) Diagnoses Postprandial abdominal pain in left upper quadrant R10.12 Abdominal bloating R14.0 Chronic idiopathic constipation K59.04 Constipation type: chronic idiopathic constipation Postprandial diarrhea K52.9 RUQ abdominal pain R10.11 Irritable bowel syndrome with both constipation and diarrhea K58.2 Irritable bowel syndrome type: with both diarrhea and constipation Time Spent (min) 40 Comment 25 minutes spent with patient and additional 15 minutes spent reviewing her records
[2023-12-20 16:31] VITALS: BP 144/94; PULSE 77; BMI 27.3
== END 2023-12-20 17:39 | disposition home or self-care (01) ==
PROVIDERS: PCP Registered Nurse; Visit Provider Nurse Practitioner Family
DX: K58.2 Mixed irritable bowel syndrome (principal); R10.12 Left upper quadrant pain; R10.11 Right upper quadrant pain
CPT/HCPCS: 99214

== ENCOUNTER → 2023-12-20 16:20 | Outpatient (BNVA) | payer OTHER, MEDICAID, SELFPAY | PROVIDERS: PCP Registered Nurse; Visit Provider Nurse Practitioner Family ==

== ENCOUNTER 2023-12-22 06:19 | Day surgery (SDC) | payer OTHER, MEDICAID, SELFPAY ==
[2023-12-20 09:26] VITALS: BMI 28.4
--- NOTE | 2023-12-21 09:09 | HO.ANESPROP2 ---
HPI - Anesthesia Eval Consult details Narrative: 38yo F for Left ESWL s/p EGD 11/2023 with [facility] Active Problems Active Problems: All Active Problems (Updated 12/07/23 @ 15:47 by KE Byrnes) HTN (hypertension) (Acute) Nephrolithiasis (Acute) Bilateral kidney stones (Acute) Medullary sponge kidney (Acute) Gallbladder polyp (Acute) Past Medical History Medical History HTN (hypertension) Family History Family History Mother Throat cancer Maternal Aunt Breast cancer Family history of problems with anesthesia: No Surgical History Surgical History Hx of lithotripsy History of laparoscopic cholecystectomy (06/03/23) History of abdominoplasty H/O: hysterectomy History of Problems with Anesthesia: No Social History Social History Alcohol intake: current Alcohol intake frequency: 0-2 drinks per day Patient Tobacco Use Status: Never used Tobacco Meds Allergies Allergy/AdvReac Type Severity Reaction Status Date / Time adhesive tape Allergy Intermediate Rash Verified 12/22/23 06:56 latex Allergy Intermediate Rash Verified 12/22/23 06:56 Home Medications Medication Instructions Recorded Confirmed Last Taken Type olmesartan 20 mg tablet 20 mg PO QAM 06/03/23 12/22/23 12/21/23 History pantoprazole 40 mg tablet,delayed 40 mg PO DAILY 10/11/23 12/22/23 12/21/23 History release amlodipine 5 mg tablet 5 mg PO DAILY 12/07/23 12/22/23 12/22/23 History Exam Height,Weight and Vital Signs: Height 5 ft 9 in Weight 87.09 kg Assessment and Plan Assessment Anesthesia Assessment: Chart Reviewed Final Anesthetic Review Family History of Problems with Anesthesia: No History of Problems with Anesthesia: No
[2023-12-22] VITALS (12 sets, daily range): BP systolic 112–152; BP diastolic 58–83; PULSE 56–67; RESP 14–112; TEMP 36.1–36.5; O2SAT 96–99; BMI 28.7
--- NOTE | ~2023-12-22 | XR_ITS ---
EXAMINATION: XR ABDOMEN KUB CLINICAL INDICATION: ESWL COMPARISON: KUB 07/30/2023 TECHNIQUE: AP view of the abdomen. FINDINGS: The bowel gas pattern is normal with no evidence of ileus or obstruction. No significant change in 7 mm calculus overlying the lower pole of the left kidney. Multiple tiny additional calculi are again seen overlying the left kidney. Tiny punctate calcifications overlie the lower pole of the right kidney. The upper pole the right kidney is obscured by bowel gas. The bones are unremarkable. Surgical clips in the right upper quadrant are consistent with prior cholecystectomy. XR/XR KUB IMPRESSION: Again seen is the 7 mm left renal calculus. Multiple tiny bilateral renal calculi are also again seen.
[2023-12-22] MEDS: Lactated Ringers 1,000 ML 100 ML IVCONT (07:08)
[2023-12-22] MEDS: Lactated Ringers 500 ML 999 ML IV (07:11)
--- NOTE | 2023-12-22 07:35 | MHC.SHP ---
Pre-Procedural Eval Section A - 24 Hr Update-Section A only Date of Service: 12/22/23 The patient is an INPATIENT: No The patient has been examined within 24 hours of the surgical procedure. The History & Physical has been completed within 30 days and I have reviewed it.: Yes Section B - Complete if H&P > 30 days Chief Complaint: Calculus of kidney Allergies: Allergies Allergy/AdvReac Type Severity Reaction Status Date / Time adhesive tape Allergy Intermediate Rash Verified 12/22/23 06:56 latex Allergy Intermediate Rash Verified 12/22/23 06:56 Plan Diagnosis/Plan: Unchanged I have reviewed the history and physical and performed a pertinent physical examination on my patient. No changes have occurred unless specified. Left ESWL. Discussed risks to include but not limited to, blood in the urine, bruising to the skin, kidney hematoma, possible need for another procedure if a stone fragment obstructs the ureter while passing, possible need to repeat procedure if stone is not completely fragmented. Time Spent With Patient Time: Total time managing care of this patient today ____ minutes.
--- NOTE | 2023-12-22 08:04 | HO.ANESPROP2 ---
REPLACED BY [facility] Active Problems Active Problems: All Active Problems (Updated 12/07/23 @ 15:47 by KE Byrnes) HTN (hypertension) (Acute) Nephrolithiasis (Acute) Bilateral kidney stones (Acute) Medullary sponge kidney (Acute) Gallbladder polyp (Acute) Past Medical History Medical History HTN (hypertension) Functional capacity: independent ambulation Patient : No Family History Family History Mother Throat cancer Maternal Aunt Breast cancer Family history of problems with anesthesia: No Surgical History Surgical History Hx of lithotripsy History of laparoscopic cholecystectomy (06/03/23) History of abdominoplasty H/O: hysterectomy History of Problems with Anesthesia: No Social History Social History Alcohol intake: current Alcohol intake frequency: 0-2 drinks per day Patient Tobacco Use Status: Never used Tobacco Use of substances other than those prescribed or required for medical reasons: No Are you DNR?: No Advance Directives: No Advance Directives Information Provided: Yes Meds Allergies Allergy/AdvReac Type Severity Reaction Status Date / Time adhesive tape Allergy Intermediate Rash Verified 12/22/23 06:56 latex Allergy Intermediate Rash Verified 12/22/23 06:56 Active Medications: Current Medications Lactated Ringer's (Lr) 1,000 mls @ 100 mls/hr IVCONT .Q10H ALPHONSE Last Admin: 12/22/23 07:08 Dose: 100 mls/hr Home Medications Medication Instructions Recorded Confirmed Last Taken Type olmesartan 20 mg tablet 20 mg PO QAM 06/03/23 12/22/23 12/21/23 History pantoprazole 40 mg tablet,delayed 40 mg PO DAILY 10/11/23 12/22/23 12/21/23 History release amlodipine 5 mg tablet 5 mg PO DAILY 12/07/23 12/22/23 12/22/23 History Exam Height,Weight and Vital Signs: Height 5 ft 9 in Weight 88.178 kg Last Vital Signs Temp 97.3 F 12/22/23 07:06 Pulse 67 12/22/23 07:06 Resp 16 12/22/23 07:06 BP 112/67 12/22/23 07:06 Pulse Ox 97 12/22/23 07:06 O2 Del Method Room Air 12/22/23 07:06 Airway Mallampati Class: II TM Dist: >3cm Neck ROM: Full Heart: RRR Lungs: CT Assessment and Plan Final Anesthetic Review Family History of Problems with Anesthesia: No History of Problems with Anesthesia: No NPO: Yes ASA Class: II Final Preanesthetic Review: Meds/Allgs Chart Reviewed, Consent Obtained/Reviewed and Anes Risks/Benef Reviewed Patient Risk: Low Procedure Risk: Low Anesthetic Plan Anesthetic Plan: MAC: Disposition: Standard PACU
--- NOTE | 2023-12-22 08:26 | W.PM.OPN ---
Operative Note Operative Note Date of Service: 12/22/23 Narrative: PreOperative Diagnosis:? ? Left Renal stone Post Operative Diagnosis:?Left? Renal stone Procedure:?Left? ESWL Surgeon:?Dr Chris Crabtree Anesthesia:? MAC Indications for procedure: The patient understands there is a risk of bruising or hematoma to the kidney, infection, and stone migration following the procedure and subsequent intervention may be required.? - Imaging 10x 6 mm stone - Left kidney lower pole Procedure: After informed consent was verified the patient was brought to the operating room and placed in a supine position.? Anesthesia was performed per protocol. Safety pause time-out was performed. Imaging was displayed in the room and laterality confirmed. ESWL was performed.?The stone was visualized on both fluoroscopy and ultrasound.? Shockwave lithotripsy was performed, after the first 300 shocks a pause for 3 minutes.? A total of 2500 shocks to a maximum of power of 19 with a maximum rate of 120 hertz.? Some fragmentation of the stone was appreciated. Fluoroscopy time 0.5 minutes. The patient tolerated the procedure well and was transferred to the recovery area upon completion. Complications: None
[2023-12-22] MEDS: fentaNYL citrate/PF 100 MCG/2 ML VIAL 25 MCG IVPUSH ×3 (08:56→09:08)
[2023-12-22] MEDS: oxyCODONE HCl Immed Release 5 MG TABLET PO (08:58)
--- NOTE | 2023-12-22 09:02 | HO.POSTANES ---
Post Anesthesia Evaluation Post Anesthesia Evaluation Date of Service: 12/22/23 Vital Signs: Vital Signs Temp Pulse Resp BP Pulse Ox O2 Del Method 12/22/23 08:56 16 12/22/23 08:52 97.1 F 62 16 118/80 99 Room Air 12/22/23 08:38 63 14 152/83 H 99 Room Air 12/22/23 08:23 97 F 64 112 H 112/58 L 99 Room Air 12/22/23 07:06 97.3 F 67 16 112/67 97 Room Air Anesthesia: Monitored Mental Status: Awake Pain Control: Satisfactory Nausea/Vomiting: None Hydration: Adequate Anesthesia-Related Issues: No Anes. Related Issues
== END 2023-12-22 11:03 | disposition home or self-care (01) ==
PROVIDERS: PCP Registered Nurse; Visit Provider Urology
PROC: (CPT 50590; principal; 2023-12-22 07:30)
DX: N20.0 Calculus of kidney (principal); Q61.5 Medullary cystic kidney; Z87.442 Personal history of urinary calculi; I10 Essential (primary) hypertension; Z91.040 Latex allergy status; L23.1 Allergic contact dermatitis due to adhesives
CPT/HCPCS: 50590; 74018; J0131; J0690; J1940; J2250; J2704; J3010

== ENCOUNTER → 2023-12-22 06:19 | Outpatient (BNV) | payer OTHER, MEDICAID, SELFPAY | PROVIDERS: PCP Registered Nurse; Visit Provider Urology | DX: N20.0 Calculus of kidney (principal) | CPT/HCPCS: 50590 ==

== ENCOUNTER 2024-02-03 13:13 | Outpatient (REF) | payer OTHER, MEDICAID, SELFPAY ==
[2024-02-03 14:18] LABS: Anion Gap 13 (12-20); Blood Urea Nitrogen 12 mg/dL (9-16); Calcium 9.9 mg/dL (8.4-10.2); Carbon Dioxide 27 mmol/L (22-29); Chloride 103 mmol/L (96-108); Estimated Glomerular Filt Rate > 60; Potassium 3.6 mmol/L (3.3-5.1); Sodium 139 mmol/L (135-145); Uric Acid 6.5 mg/dL (2.4-5.7)
[2024-02-03 14:20] LABS: Parathyroid Hormone Intact 56.8 pg/mL (8.7-77.1)
== END 2024-02-03 13:14 | disposition home or self-care (01) ==
LOC: HO.LAB 13:13
PROVIDERS: Absent Provider Nurse Practitioner Family; PCP Registered Nurse; Visit Provider Internal Medicine Hypertension Specialist
DX: N20.0 Calculus of kidney (principal)
CPT/HCPCS: 36415; 80051; 82310; 82565; 83970; 84100; 84520; 84550

== ENCOUNTER 2024-02-07 13:59 | Outpatient (REF) | payer OTHER, MEDICAID, SELFPAY ==
--- NOTE | ~2024-02-07 | CT_ITS ---
EXAMINATION: CT ABDOMEN AND PELVIS WITH CONTRAST CLINICAL INFORMATION: Abdominal pain COMPARISON: Abdominal CT of 12/29/2021 and ultrasound of 04/20/2023 TECHNIQUE: Multidetector volumetric images were obtained from the superior aspect of the liver through the pubic symphysis following administration 85 mL of Omnipaque 350 intravenous contrast. Sagittal and coronal reformatted images were obtained on the technologist's workstation. Oral contrast: No This CT examination was performed using dose optimization techniques as appropriate, variously including the following: *Automated exposure control *Adjustment of mA and/or kV according to patient size (this includes techniques or standardized protocols for targeted exams where dose is matched to indication/reason for exam; i.e. extremities or head) *Use of iterative reconstruction technique DLP: 524 mGy-cm FINDINGS: LUNG BASES: The visualized lung bases are unremarkable. LIVER, GALLBLADDER, AND BILIARY TREE: The liver is enlarged, measuring 22 cm long, and low in attenuation, consistent with steatosis. No focal hepatic lesion or biliary ductal dilatation is present. The gallbladder is surgically absent. PANCREAS: Unremarkable. SPLEEN: Unremarkable. ADRENAL GLANDS: Unremarkable. KIDNEYS AND URETERS: A 4 mm calculus is evident in the lower pole the left kidney. A 4 mm calculus is also evident in the lower pole the right kidney. The calculi in the left kidney of decreased in number since the prior examination. No obstructive uropathy is evident. The ureters are collapsed. No ureteral calculi are detected. There is no evidence of obstructive uropathy or perirenal infiltration. BLADDER: Unremarkable. GASTROINTESTINAL TRACT: The small and large bowel are unremarkable. The appendix is unremarkable. ABDOMINAL WALL: No significant hernia is appreciated. LYMPH NODES: Normal. VASCULAR: Unremarkable. PELVIC VISCERA: Unremarkable. OSSEOUS STRUCTURES: Unremarkable. CT/CT abdomen pelvis w IV con IMPRESSION: 1. Bilateral nonobstructive renal calculi, decreased in number since CT of 12/29/2021. 2. Hepatomegaly and hepatic steatosis. Fleischner guidelines were followed.
[2024-02-07] MEDS: iohexoL 350 MG/ML 100 ML INFUS..BTL 85 ML IV (16:22)
[2024-02-07] MEDS: Barium Sulfate Oral (Vanilla) 450 ML ORAL.SUSP 900 ML PO (16:23)
== END 2024-02-07 14:00 | disposition home or self-care (01) ==
LOC: HO.CT 13:59
PROVIDERS: PCP Registered Nurse; Visit Provider Nurse Practitioner Family
DX: R10.9 Unspecified abdominal pain (principal)
CPT/HCPCS: 74177; Q9967

== ENCOUNTER 2024-02-16 07:43 | Emergency (ER) | payer OTHER, SELFPAY ==
[2024-02-16 07:47] VITALS: BP 177/95; PULSE 101; RESP 20; TEMP 37.2; O2SAT 97; BMI 28.1
[2024-02-16 08:13] LABS: MANUAL DIFF FLAG NO
[2024-02-16 08:15] LABS: Basophils Percent Auto 0.3 % (0-2); Eosinophils Absolute Auto 0.1 X10*3/uL (0.0-0.4); Eosinophils Percent Auto 0.4 % (0-4); Hematocrit 40.5 % (37.0-47.0); Imm Gran Abs Auto 0.04 X10*3/uL (0.00-0.03); Imm Gran Pct Auto 0.3 % (0.0-0.4); Lymphocytes Absolute Auto 1.6 X10*3/uL (1.2-4.9); Lymphocytes Percent Auto 11.7 % (20-40); Mean Corpuscular HGB Conc 34.6 g/dl (31.0-35.0); Mean Corpuscular Hemoglobin 29.7 pg (27.0-33.0); Mean Platelet Volume 9.5 fL (9.4-12.3); Monocytes Absolute Auto 0.9 X10*3/uL (0.1-1.2); Monocytes Percent Auto 6.7 % (2-11); Neutrophils Percent Auto 80.6 % (45-73); Platelet Count 345 X10*3/uL (160-400); Red Blood Count 4.71 X10*6/uL (4.20-5.50); Red Cell Distribution Width 12.3 % (11.0-16.0); White Blood Count 13.7 X10*3/uL (4.8-10.8)
[2024-02-16 08:29] LABS: Anion Gap 13 (12-20); Blood Urea Nitrogen 10 mg/dL (9-16); Calcium 9.5 mg/dL (8.4-10.2); Carbon Dioxide 25 mmol/L (22-29); Chloride 103 mmol/L (96-108); Creatinine Clr Calc Pharmacy 130.7; Estimated Glomerular Filt Rate > 60; Glucose Random 119 mg/dL (60-115); Potassium 3.6 mmol/L (3.3-5.1); Sodium 137 mmol/L (135-145)
[2024-02-16 08:31] LABS: IDNOW Serial# 08D9AD1C; Strep A Nucleic Acid Positive (Negative)
--- NOTE | 2024-02-16 09:02 | ED.GENADULT ---
HPI - General Adult General Chief complaint: Upper Respiratory Symptoms Stated complaint: Sore throat Time Seen by Provider: 02/16/24 09:01 Source: patient Mode of arrival: ambulatory Limitations: no limitations History of Present Illness HPI narrative: Patient is a 38-year-old female with history of hypertension presenting to the emergency department with complaint of sore throat and fever for 2 days. Complains of increased pain with swallowing, also complains of lymph node swelling. Reports history of peritonsillar abscess in the past. Denies cough, congestion, chest pain or dyspnea. MD complaint: Sore throat Onset (ago): day(s) Severity scale (1-10): 10 Quality: burning Pain Consistency: constant Relieving factors: none Exacerbating factors: eating Associated symptoms: fever/chills Treatments prior to arrival: none Related Data Home Medications Medication Instructions Recorded Confirmed olmesartan 20 mg tablet 20 mg PO QAM 06/03/23 12/22/23 pantoprazole 40 mg tablet,delayed 40 mg PO DAILY 10/11/23 12/22/23 release amlodipine 5 mg tablet 5 mg PO DAILY 12/07/23 12/22/23 Previous Rx's Medication Instructions Recorded nitrofurantoin macrocrystal 50 mg 50 mg PO .COMPLEX #30 caps 09/01/23 capsule cholecalciferol (vitamin D3) 50 50 mcg PO DAILY #90 caps 10/11/23 mcg (2,000 unit) capsule hydrocortisone 2.5 % topical cream 1 appl MO BID-QID PRN hemorrhoids 11/30/23 with perineal applicator #30 grams (Proctosol HC) hydrocortisone acetate 25 mg 25 mg MO BID #24 ea 11/30/23 rectal suppository (Anucort-HC) bisacodyl 5 mg tablet,delayed 10 mg (2 x 5 mg) PO BEDTIME #180 12/20/23 release (Dulcolax (bisacodyl)) tabs colesevelam 625 mg tablet (WelChol) 1,250 mg (2 x 625 mg) PO BID #120 12/20/23 tabs oxycodone-acetaminophen 5 mg-325 1 tab PO Q6H PRN pain #8 tabs 12/22/23 mg tablet (Percocet) amoxicillin 400 mg/5 mL oral 500 mg (6.25 mL) PO BID 10 days 02/16/24 suspension #125 mL Allergies Allergy/AdvReac Type Severity Reaction Status Date / Time adhesive tape Allergy Intermediate Rash Verified 12/22/23 06:56 latex Allergy Intermediate Rash Verified 12/22/23 06:56 Review of Systems Review of Systems: As per HPI. Yes all other systems are reviewed and are negative Constitutional: Constitutional: Reports as per HPI [facility] Past Medical History Medical History HTN (hypertension) Surgical History Hx of lithotripsy History of laparoscopic cholecystectomy (06/03/23) History of abdominoplasty H/O: hysterectomy Family History Family History Mother Throat cancer Maternal Aunt Breast cancer Social History Social History Alcohol intake: current Alcohol intake frequency: 0-2 drinks per day Patient Tobacco Use Status: Never used Tobacco Advance Directives: No Physical Exam ED Vital Signs: Vital Signs - 24 hr 02/16/24 07:47 Temperature 99 F Pulse Rate 101 H Respiratory Rate 20 Blood Pressure 177/95 H Pulse Oximetry 97 Oxygen Delivery Method Room Air BMI result Body Mass Index 28.1 Vital signs have been reviewed and appear to be correct. Blood pressure elevated. Heart rate slightly tachycardic. Respiratory rate normal. Temperature normal. Oxygen saturation normal. Const General: cooperative, healthy appearing and no acute distress Orientation/consciousness: oriented to person, oriented to place, oriented to time and patient oriented x3 Limitations: no limitations [facility] Head: Yes normocephalic and Yes atraumatic Ears: external ears normal General nose exam: Normal external nose present Face and sinus: Yes face symmetric Mouth: oropharynx normal and moist mucous membranes Throat: Yes uvula midline, Yes abnormal tonsil (erythema, 3+ bilat), No peritonsillar mass and No uvular edema Eyes Pupils: Equal, round and reactive pupils present Neck Neck: Yes normal visual inspection and Yes supple Lymphatic: lymphadenopathy bilateral anterior cervical Resp Effort & Inspection: normal respiratory effort and able to speak in complete sentences Auscultation: clear to auscultation bilaterally Cardio Rate: regular rate Rhythm: regular rhythm Heart sounds: S1 normal heart sound present and S2 normal heart sound present GI Palpation (GI): Soft to palpation and nontender Auscultation: normoactive bowel sounds General: Yes no CVA tenderness Back/Spine/Pelvis Back: no CVA tenderness Skin General skin exam: elasticity normal and turgor normal Neuro General: oriented to person, oriented to place, oriented to time, patient oriented x3, moves all extremities, no focal motor deficits and CN's II-XI intact bilaterally Cranial nerves: Yes Equal, round and reactive pupils present Cognition (Neuro): normal cognition Extrem General: Yes full ROM, Yes no pedal edema and Yes no calf tenderness Psych Mental Status: mental status grossly normal Affect: normal affect Thought process: Normal thought process present Medical Decision Making Medical Decision Making [facility] Narrative: Patient is a 38-year-old female with history of hypertension presenting to the emergency department with complaint of sore throat and fever for 2 days. On exam patient is awake, A+Ox3, hypertensive, VS otherwise WNL, afebrile, normal neurological exam without focal deficits, physical exam findings as above. Given reported symptoms and physical exam findings, initial differential includes strep pharyngitis, peritonsillar or retropharyngeal abscess, COVID, flu, RSV, other viral illness. Swab positive for strep. Labs notable for mild leukocytosis, otherwise grossly within normal limits. No evidence of INFORMATION TECHNOLOGY TEACHER or RPA on physical exam. Patient medicated with 1 time dose of dexamethasone in the ED as well as 1st dose of antibiotics. Patient is specifically requesting suspension form of antibiotics as she feels she will have difficulty swallowing pills. Strict return precautions discussed at bedside. Instructed patient to follow-up with primary care provider. Advised alternating Tylenol and ibuprofen as well as warm salt-water gargles until symptoms improve. Patient verbalized understanding of and agreement with plan. Differential Diagnosis Differential Diagnoses: The differential diagnosis associated with the presentation includes As per MDM. Lab Data [facility] Lab Attestation statement: I reviewed the patient's lab results. As per MDM. 02/16/24 08:08 02/16/24 08:08 Labs: Lab Results 02/16/24 02/16/24 Range/Units 08:06 08:08 WBC 13.7 H (4.8-10.8) X10*3/uL RBC 4.71 (4.20-5.50) X10*6/uL Hgb 14.0 (12.0-16.0) g/dl Hct 40.5 (37.0-47.0) % MCV 86.0 (80.0-98.0) fL MCH 29.7 (27.0-33.0) pg MCHC 34.6 (31.0-35.0) g/dl RDW 12.3 (11.0-16.0) % Plt Count 345 (160-400) X10*3/uL MPV 9.5 (9.4-12.3) fL Immature Gran % (Auto) 0.3 (0.0-0.4) % Neut % (Auto) 80.6 H (45-73) % Lymph % (Auto) 11.7 L (20-40) % [place] % (Auto) 6.7 (2-11) % Eos % (Auto) 0.4 (0-4) % Baso % (Auto) 0.3 (0-2) % Lymph # (Auto) 1.6 (1.2-4.9) X10*3/uL [place] # (Auto) 0.9 (0.1-1.2) X10*3/uL Eos # (Auto) 0.1 (0.0-0.4) X10*3/uL Baso # (Auto) 0.0 (0.0-0.2) X10*3/uL Abs Immat Gran (auto) 0.04 H (0.00-0.03) X10*3/uL Absolute Neuts (auto) 11.0 H (2.0-8.3) x10*3/uL Absolute Nucleated RBC 0.000 (0.0-0.012) X10*3/uL Nucleated RBC % (auto) 0.0 (0.0-0.2) /100WBC Sodium 137 (135-145) mmol/L Potassium 3.6 (3.3-5.1) mmol/L Chloride 103 (96-108) mmol/L Carbon Dioxide 25 (22-29) mmol/L Anion Gap 13 (12-20) BUN 10 (9-16) mg/dL Creatinine 0.69 (0.5-1.4) mg/dL Estim Creat Clear Calc 130.7 Estimated GFR > 60 Random Glucose 119 H (60-115) mg/dL Calcium 9.5 (8.4-10.2) mg/dL S. pyogenes GrpA BERNADETTE Positive A (Negative) External Record Review External record reviewed: Inpatient record, Office record and Outpatient record Prescription Management I considered prescription management with: Antibiotic Discharge Plan Discharge Clinical Impression: Acute streptococcal pharyngitis Patient Disposition: Home, Self-Care Instructions: Strep Throat (DC) Additional Instructions: You were evaluated in the emergency department today for a sore throat. Your strep swab was positive. You are being prescribed antibiotics, please complete the full course as prescribed even if your symptoms improve. You are contagious until you have taken the antibiotics for 24 hours. You were given a 1 time dose of a steroid to decrease inflammation in the emergency department. Be sure to drink adequate fluids. You can use Tylenol and ibuprofen per package directions as needed for discomfort. You can also gargle with warm salt water several times daily. Follow-up with your primary care provider this week. Return to the emergency department if you develop difficulty swallowing, worsening pain, shortness of breath, are unable to swallow your saliva, fever not improved with Tylenol/ibuprofen, or any other concerning symptoms. Prescriptions: New amoxicillin 400 mg/5 mL suspension for reconstitution 500 mg PO BID 10 Days Qty: 125 0RF No Action olmesartan 20 mg tablet 20 mg PO QAM oxycodone-acetaminophen [Percocet] 5-325 mg tablet 1 tab PO Q6H PRN (Reason: pain) Qty: 8 0RF Rx Instructions: Partial Fill upon patient request. pantoprazole 40 mg tablet,delayed release (DR/EC) 40 mg PO DAILY cholecalciferol (vitamin D3) 50 mcg (2,000 unit) capsule 50 mcg PO DAILY Qty: 90 3RF bisacodyl [Dulcolax (bisacodyl)] 5 mg tablet,delayed release (DR/EC) 10 mg PO BEDTIME Qty: 180 4RF colesevelam [WelChol] 625 mg tablet 1,250 mg PO BID Qty: 120 2RF nitrofurantoin macrocrystal 50 mg capsule 50 mg PO .COMPLEX Qty: 30 3RF Rx Instructions: 50 mg orally as directed use after intercourse; must administer with a meal/food hydrocortisone [Proctosol HC] 2.5 % cream with perineal applicator 1 appl MO BID-QID PRN (Reason: hemorrhoids) Qty: 30 2RF hydrocortisone acetate [Anucort-HC] 25 mg suppository 25 mg MO BID Qty: 24 2RF amlodipine 5 mg tablet 5 mg PO DAILY Stand Alone Forms: Work/School Release
[2024-02-16] MEDS: dexAMETHasone sod phosphate 10 MG/ML VIAL IVPUSH (09:32)
[2024-02-16] MEDS: Amoxicillin Oral Susp 400 mg/5 mL 75 mL SUSP.RECON 500 MG PO (09:33)
[2024-02-16 09:40] VITALS: BP 177/95; PULSE 101; RESP 20; TEMP 37.2; O2SAT 97
== END 2024-02-16 09:41 | disposition home or self-care (01) ==
PROVIDERS: Emergency Provider Emergency Medicine; PCP Registered Nurse
DX: J02.0 Streptococcal pharyngitis (principal); I10 Essential (primary) hypertension
CPT/HCPCS: 80048; 85025; 87651; 99282; 99283; J1100

== ENCOUNTER 2024-03-03 15:11 | Outpatient (AMB) | payer OTHER, MEDICAID, SELFPAY ==
--- NOTE | 2024-03-03 15:12 | A.OFFVIS_ITS ---
Intake Visit Reasons: S/P ESWL- 6wk follow up/US Intake Note: Patient presents today for a follow-up ESWL: Meds- None Allergies to Antibiotic- No Known Allergies Blood Thinner- None Manager Clinical Research Required: No Accompanied by: Self / Same As Patient Allergies adhesive tape Allergy (Intermediate, Verified 12/22/23 06:56) Rash latex Allergy (Intermediate, Verified 12/22/23 06:56) Rash HPI Comments Details: Rosa is a 38-year-old female who presents today Telehealth visit for a follow- up. The patient is followed for bilateral kidney stones, medullary nephrocalcinosis. The patient was referred to Nephrology as well. She had left ESWL on 12/22/23, she denies blood in the urine. She states she has had abdominal pain and diarrhea. She has had evaluation with GI including CT scan on 02/07/2024 and upper endoscopy with GI. I have reviewed the recent CT imaging. Left kidney 4 mm stone fragment remaining, right kidney 4 mm stone noted no hydronephrosis. The patient denies renal colic. 20 minutes spent in review of records pertaining to this visit and including [id number] discussion with the patient and documentation of this visit. We will monitor kidney stones. Plan--follow-up in 9 months KUB prior. Review of chart: 12/06/23- Rosa is followed for nephrolithiasis. CoMorbidity - Htn. She is followed today preop Left ESWL. She had referral to tie presser for further evaluation of her kidney stones and hypertension. She has had UTI's in the past: UA today - no signs of infection. Discussed Left ESWL. KUB X-ray results from 07/30/23 revealed redemonstration of 7 mm left renal calculus. Multiple tiny bilateral renal calculi. Abdomen US results reviewed?04/20/23-- Questionable medullary sponge kidney with multiple bilateral nonobstructing stones.? CTAP? results reviewed--12/29/21--Bilateral? nonobstructing renal stones. Urine culture results from 08/13/23 which came back Citrobacter koseri > 100,000 cfu/mL. 03/03/24: Plan: Monitor kidney stones. Follow-up in 9 months KUB prior. Patient also follows with Nephrology. [facility] Medical History HTN (hypertension) Surgical History Hx of lithotripsy History of laparoscopic cholecystectomy (06/03/23) History of abdominoplasty H/O: hysterectomy Family History Mother Throat cancer Maternal Aunt Breast cancer Social History Alcohol intake: current Alcohol intake frequency: 0-2 drinks per day Patient Tobacco Use Status: Never used Tobacco Review of Systems Const All systems reviewed & are unremarkable except as noted in HPI and below Reports no additional complaints Eyes Reports no additional complaints ENT Reports no additional complaints Card Reports no additional complaints Resp Reports no additional complaints GI Reports no additional complaints Reports as per HPI Musc Reports no additional complaints Skin/Breast Reports system reviewed and no additional complaints, except as documented Neuro Reports no additional complaints Psych Reports no additional complaints Endo Reports no additional complaints Jose/Lymph Reports no additional complaints Aller/Immun Reports no additional complaints Physical Exam Const General: cooperative, healthy appearing and no acute distress Orientation/consciousness: patient oriented x3 HEENT Head: Yes normal to inspection, Yes normocephalic and Yes atraumatic Eyes Conjunctivae: conjunctivae normal Chest Chest palpation & inspection: normal inspection of the chest Resp Effort & Inspection: normal respiratory effort Neuro General: patient oriented x3 Psych Appearance: grossly normal Telehealth Telehealth Location of provider rendering services: practice address Location of patient: address on file Patient Identification confirmed using: Name, : Yes Telehealth method: video Patient verbally consented to treatment: Yes Patient verbally consented to billing insurance company: Yes Patient informed of any privacy concerns related to visit: Yes Assessment & Plan Assessment & Plan (1) Bilateral kidney stones: Code(s): N20.0 - Calculus of kidney Category: Medical Plan Monitor kidney stones. Follow-up in 9 months KUB prior. Patient also follows with Nephrology. Orders: Orders XR KUB 7 Months N20.0 - Calculus of kidney Patient Instructions: The patient had an opportunity to ask questions regarding treatment plan. All questions were answered. Imaging, results were discussed and reviewed in detail. No major barriers to understanding were identified. The patient expressed understanding and agreement with the above treatment plan. The patient is aware they should contact our office by phone for worsening of their current condition or the appearance of new symptoms. Compliance is encouraged with any medications and followup testing that is ordered. It is a privilege to be allowed the opportunity to participate in the urologic care of your patient. If you have any questions or concerns regarding treatment for the above conditions please do not hesitate to contact me. The office telephone contact is [phone]. This note is constructed in part using voice recognition software. While every effort has been made to ensure accuracy armhole baster hand errors may have been included. Yours sincerely, Chris Crabtree MD
--- OUTSIDE RECORDS SUMMARY | 2024-03-03 15:12 | XMS_ITS | Continuity of Care Document ---
Author Organization [facility] Address [address] [place] [address]- Care Team Providers Care Artists' Model Name Role Phone Rehana Flower NP Primary Care Physician [phone] Encounter [facility] Date(s): 06/24/23 - 09/29/23 [facility] [address] [place] [id number]- Discharge Disposition: A-D/C Home Attending Physician: Ju Roche MD Admitting Physician: Ju Roche MD Referring Physician: Rehana Flower NP Vital Signs Most recent to oldest [Reference Range]: 1 Height 176.3 cm (07/30/23 2:06 PM) Weight 86.7 kg (07/30/23 2:06 PM) Oxygen Saturation [94-100 %] 99 % (07/30/23 2:06 PM) Pulse Rate [55-90 bpm] 79 bpm (07/30/23 2:06 PM) Body Mass Index [18.5-24.99 kg/m2] 27.89 kg/m2 *H* (07/30/23 2:06 PM) Blood Pressure [90-138/55-84 mm Hg] 163/ 80mm Hg *H* (07/30/23 2:06 PM) Mode of Delivery (Oxygen) Room air (07/30/23 2:06 PM) Blood pressure sites Arm, right (07/30/23 2:06 PM) Temperature Route Oral (07/30/23 2:06 PM) Dry Weight 86.7 kg (07/30/23 2:06 PM) Weight Obtained Via Standing scale (07/30/23 2:06 PM) Dry Weight Obtained Via Standing scale (07/30/23 2:06 PM) Patient Care team information Care Team Personnel Name: [place] GERENTOLOGICAL PHYSIOTHERAPISTRehana Position: Reference Physician Member Role: PCP Address: Address: [address] [place] [id number]
--- OUTSIDE RECORDS SUMMARY | 2024-03-03 15:12 | XMS_ITS | Continuity of Care Document ---
Author Organization [facility] Address [address] [place] [address]- Care Team Providers Care Electroplater Automatic Name Role Phone Rehana Flower NP Primary Care Physician Encounter [facility] Date(s): 06/28/23 - 07/28/23 [facility] [address] [place] [id number]- Patient Care team information Care Team Personnel Name: Rehana Flower NP Position: Reference Physician Member Role: PCP Address: Address: [address] [place] [id number]
--- OUTSIDE RECORDS SUMMARY | 2024-03-03 15:12 | XMS_ITS | Continuity of Care Document ---
Author Organization [facility] Address [address] [place] [address]- Care Team Providers Care Academic Hospitalist Name Role Phone MundoRehana solis NP Primary Care Physician Encounter [facility] Date(s): 06/24/23 - 07/24/23 [facility] [address] [place] [id number]- Attending Physician: Benitez Fu Admitting Physician: Benitez Fu Referring Physician: Tank ArTammy Patient Care team information Care Team Personnel Name: ShabbonaRehana solis NP Position: Reference Physician Member Role: PCP Address: Address: [address] [place] [id number]-
== END 2024-03-03 15:49 | disposition home or self-care (01) ==
LOC: HO.HUSH 15:11
PROVIDERS: PCP Registered Nurse; Visit Provider Urology
DX: N20.0 Calculus of kidney (principal)
CPT/HCPCS: 99024

== ENCOUNTER → 2024-03-03 15:11 | Outpatient (BNVA) | payer OTHER, MEDICAID, SELFPAY | PROVIDERS: PCP Registered Nurse; Visit Provider Urology ==

== ENCOUNTER 2025-02-14 | Outpatient (REF) | payer OTHER, MEDICAID, SELFPAY ==
--- NOTE | ~2025-02-14 | XR_ITS ---
CLINICAL HISTORY: N20.0 - Calculus of kidney 1 view abdomen Comparison: None Findings: No pneumoperitoneum or pneumatosis. No abnormal calcifications. No acute fractures. IMPRESSION: The bowel gas pattern is within normal limits This document has been electronically signed by: Dereck Hector MD on 02/16/2025 08:49:28
--- OUTSIDE RECORDS SUMMARY | 2025-05-10 17:52 | XMS_ITS | Encounter Summary ---
Author Organization [employer] Address [address] [place] [address] Care Team Providers Care Production Bow Maker Name Role Phone Mundo Rehana [facility] Primary Care Provider [phone] Encounter Details Date Type Department Care Team (Latest Contact Info) Description 03/23/2022 Abstract [facility] CONVERSIONS Dental, Provider, DDS Social History [...] as of this encounter Plan of Treatment Upcoming Encounters Date Type Department Care Team ( st Contact Info) Description 05/21/2025 9:45 AM EDT Office Visit [facility] MEDICINE [address] [place] [address] [facility] CenterRehana [facility] [address] [place] [address] documented as of this encounter Visit Diagnoses Not on filedocumented in this encounter Care Teams Production Bow Maker Relationship Specialty Start Date End Date Rehana Flower FNP [address] [place] [address] PCP - General Family Medicine 07/09/22 documented as of this encounter
== END 2025-02-14 00:01 | disposition home or self-care (01) ==
LOC: HO.XRAY
PROVIDERS: PCP Registered Nurse; Visit Provider Urology
DX: N20.0 Calculus of kidney (principal)
CPT/HCPCS: 74018

== ENCOUNTER → 2025-02-14 16:13 | Outpatient (BNV) | payer OTHER, MEDICAID, SELFPAY | PROVIDERS: PCP Registered Nurse; Visit Provider Specialist | DX: N20.0 Calculus of kidney (principal) | CPT/HCPCS: 74018 ==

== ENCOUNTER 2025-02-19 16:03 | Outpatient (AMB) | payer OTHER, MEDICAID, SELFPAY ==
--- NOTE | 2025-02-19 16:14 | A.OFFVIS_ITS ---
Intake Visit Reasons: Followup/KUB Intake Note: Patient presents today for a follow-up/KUB Urology Meds- None Allergies to Antibiotic- No Known Allergies Blood Thinner- None Capacity Management Specialist Required: No Accompanied by: Self / Same As Patient Allergies adhesive tape Allergy (Intermediate, Verified 02/19/25 16:20) Rash latex Allergy (Intermediate, Verified 02/19/25 16:20) Rash HPI Comments Details: 02/19/25--Rosa is here for an annual follow-up due to history of kidney stones. I reviewed KUB which did not show any radiopaque calcifications there were bowel gas pattern noted. The patient mentioned that she does have irritable bowel syndrome and has had loose stools since having a gallbladder surgery. In the past we attempted a 24 hour urine which the patient completed but the lab did not evaluate the specimen as the collection times were over 26 hours. I have discussed diet modification to decrease risk of forming more kidney stones. I have discussed low oxalate diet and specific foods to avoid including certain green leafy vegetables, chocalate, nuts, tea, beets, rubarb; low sodium, decreased use of animal protein and the importance of hydration drinking up to 2-2.5 liters of fluids and use of adding lemon to water to increase citrate in the diet. A pamphlet is also provided today. Will have patient recollects a 24 hour urine and review results by telehealth. Renal ultrasound in 1 year. 03/03/24---Rosa is a 38-year-old female who presents today Telehealth visit for a follow-up. The patient is followed for bilateral kidney stones, medullary nephrocalcinosis. The patient was referred to Nephrology as well. She had left ESWL on 12/22/23, she denies blood in the urine. She states she has had abdominal pain and diarrhea. She has had evaluation with GI including CT scan on 02/07/2024 and upper endoscopy with GI. I have reviewed the recent CT imaging. Left kidney 4 mm stone fragment remaining, right kidney 4 mm stone noted no hydronephrosis. The patient denies renal colic. 20 minutes spent in review of records pertaining to this visit and including hygy-sk-dbyt discussion with the patient and documentation of this visit. We will monitor kidney stones. Plan--follow-up in 9 months KUB prior. 12/06/23- Rosa is followed for nephrolithiasis. CoMorbidity - Htn. She is followed today preop Left ESWL. She had referral to fish fryer for further evaluation of her kidney stones and hypertension. She has had UTI's in the past: UA today - no signs of infection. Discussed Left ESWL. KUB X-ray results from 07/30/23 revealed redemonstration of 7 mm left renal calculus. Multiple tiny bilateral renal calculi. Abdomen US results reviewed?04/20/23-- Questionable medullary sponge kidney with multiple bilateral nonobstructing stones.? CTAP? results reviewed--12/29/21--Bilateral? nonobstructing renal stones. Urine culture results from 08/13/23 which came back Citrobacter koseri > 100,000 cfu/mL. 03/03/24: Plan: Monitor kidney stones. Follow-up in 9 months KUB prior. Patient also follows with Nephrology. PFSH Medical History HTN (hypertension) Surgical History Hx of lithotripsy History of laparoscopic cholecystectomy (06/03/23) History of abdominoplasty H/O: hysterectomy Family History Mother Throat cancer Maternal Aunt Breast cancer Social History Alcohol intake: current Alcohol intake frequency: 0-2 drinks per day Patient Tobacco Use Status: Never used Tobacco Results AMB Urinalysis, Automated UA Leukoctes 0 Donnie/uL Last Edit by GLORIA Ortiz on 02/19/25 16:46 UA Nitrite Negative Last Edit by GLORIA Ortiz on 02/19/25 16:46 UA Urobilinogen 0.2 mg/dL Last Edit by GLORIA Ortiz on 02/19/25 16:4 6 UA Protein 15 mg/dL Last Edit by GLORIA Ortiz on 02/19/25 16:46 UA pH 6.0 Last Edit by GLORIA Ortiz on 02/19/25 16:46 UA Blood 0 Neil/uL Last Edit by GLORIA Ortiz on 02/19/25 16:46 UA Specific Neptune 1.015 Last Edit by GLORIA Ortiz on 02/19/25 16: 46 UA Ketone Negative Last Edit by GLORIA Ortiz on 02/19/25 16:46 UA Bilirubin 0 mg/dL Last Edit by GLORIA Ortiz on 02/19/25 16:46 UA Glucose 0 mg/dL Last Edit by GLORIA Ortiz on 02/19/25 16:46 Results Reviewed Results Reviewed: Date of Service: 02/07/24 Procedure(s): CT abdomen pelvis w IV con Accession Number(s): [id number] cc: Debbie Robbins [facility]; [facility]~ EXAMINATION: CT ABDOMEN AND PELVIS WITH CONTRAST CLINICAL INFORMATION: Abdominal pain COMPARISON: Abdominal CT of 12/29/2021 and ultrasound of 04/20/2023 TECHNIQUE: Multidetector volumetric images were obtained from the superior aspect of the liver through the pubic symphysis following administration 85 mL of Omnipaque 350 intravenous contrast. Sagittal and coronal reformatted images were obtained on the technologist's workstation. Oral contrast: No This CT examination was performed using dose optimization techniques as appropriate, variously including the following: *Automated exposure control *Adjustment of mA and/or kV according to patient size (this includes techniques or standardized protocols for targeted exams where dose is matched to indication/reason for exam; i.e. extremities or head) *Use of iterative reconstruction technique DLP: 524 mGy-cm FINDINGS: LUNG BASES: The visualized lung bases are unremarkable. LIVER, GALLBLADDER, AND BILIARY TREE: The liver is enlarged, measuring 22 cm long, and low in attenuation, consistent with steatosis. No focal hepatic lesion or biliary ductal dilatation is present. The gallbladder is surgically absent. PANCREAS: Unremarkable. SPLEEN: Unremarkable. ADRENAL GLANDS: Unremarkable. KIDNEYS AND URETERS: A 4 mm calculus is evident in the lower pole the left kidney. A 4 mm calculus is also evident in the lower pole the right kidney. The calculi in the left kidney of decreased in number since the prior examination. No obstructive uropathy is evident. The ureters are collapsed. No ureteral calculi are detected. There is no evidence of obstructive uropathy or perirenal infiltration. BLADDER: Unremarkable. GASTROINTESTINAL TRACT: The small and large bowel are unremarkable. The appendix is unremarkable. ABDOMINAL WALL: No significant hernia is appreciated. LYMPH NODES: Normal. VASCULAR: Unremarkable. PELVIC VISCERA: Unremarkable. OSSEOUS STRUCTURES: Unremarkable. IMPRESSION: 1. Bilateral nonobstructive renal calculi, decreased in number since CT of 12/29/2021. Date of Service: 07/30/23 EXAMINATION: XR ABDOMEN KUB CLINICAL INDICATION: Calculus of kidney COMPARISON: Ultrasound abdomen 04/20/2023. CT abdomen and pelvis 12/29/2021. TECHNIQUE: 2 AP views of the abdomen. FINDINGS: Nonobstructive bowel gas pattern. Moderate amount of stool in the colon. Visualization of the bilateral kidneys is limited due to overlying bowel. Degenerative changes in the lumbar spine. Redemonstration of 7 mm calculus overlying lower pole of left kidney. Multiple tiny additional calculi again overlie the left kidney. Tiny faint calculi overlying the right kidney. IMPRESSION: Redemonstration of 7 mm left renal calculus. Multiple tiny bilateral renal calculi. Assessment & Plan Assessment & Plan Orders: Orders AMB Urinalysis Automated Today Z13.9 - Encounter for screening, unspecified Coding
--- OUTSIDE RECORDS SUMMARY | 2025-02-19 18:37 | XMS_ITS | Encounter Summary ---
Author Organization [employer] Address [address] [place] [address] [address] [address] Care Team Providers Care Supervisor [employer] Name Role Phone [facility] Primary Care Provider [phone] Reason for Visit * Reason Onset Date Comments Referral 06/16/2023 Results 06/16/2023 Encounter Details Date Type Department Care Team (Late st Contact Info) Description 06/16/2023 Telephone [facility] [address], [place] [id number] [facility] [address] [place] [address] Referral; Results Social History Tobacco Use Types Packs/Day Years Used Date Smoking Tobacco: Never Smokeless Tobacco: Never Alcohol Use Standard Drinks/Week Comments Yes 0 (1 standard drink = 0.6 oz pur e alcohol) Socially Comments Unknown Sex and Gender Information Value Date Recorded Sex Assigned at Female 09/14/2022 10:38 AM EDT Legal Sex Female 10:38 AM EDT Gender Identity Female 09/14/2022 10:38 AM EDT Sexual Orientation Straight 09/14/2022 10 :38 AM EDT documented as of this encounter Miscellaneous Notes * Telephone Encounter - Tawny Yue - 06/16/2023 10:23 AM EDT Tc from pt requesting if gastro referral can be sent to a different location as urgent . States [facility] next available appt wont be till mid October. Pt informs is okay if its far distance like [place] example . Pt is also requesting to speak with pcp regarding a surgery she had on 06/03/23 at [facility] . documented in this encounter Plan of Treatment Not on file documented as of this encounter Visit Diagnoses Not on filedocumented in this encounter Additional Health Concerns Assessment Noted Time PHQ-9 Depression Total Score: 0 11/24/19 9:40 AM EST documented as of this encounter Care Teams Supervisor [employer] Relationship Specialty Start Date End Date Rehana Flower FNP [address] [place] [id number] PCP - General Family Medicine 07/09/22 documented as of this encounter
--- OUTSIDE RECORDS SUMMARY | 2025-02-19 18:37 | XMS_ITS | Clinical Summary ---
Author Organization [employer] Address [address] [facility] 7 [place] [address] Care Team Providers Care Supervisor Heat Treating Name Role Phone Rehana Flower [facility] Primary Care Provider [phone] Allergies Active Allergy Reactions Criticality Noted Date Comments Aspirin 03/10/2012 Other reaction(s): GI Problems, Other (See Comments) BOTHERS HER STOMACH ?? Latex Itching,Rash Low 03/10/2012 Other reaction(s): Rash, Rash Medications Vitamins-Lipotro pics (B Complex Formula 1, Lipotrop,) tablet Active ibuprofen 800 MG tablet TAKE 1 TABLET BY MOUTH THREE TIMES DAILY WITH FOOD 2 Active docusate sodium (Colace) 100 MG capsule TAKE 1 CAPSULE BY MOUTH EVERY DAY 2 Active Acetaminophen PM 500-25 MG per tablet TAKE 2 TABLETS BY MOUTH AT BEDTIME 2 Active diphenhydrAMINE- acetaminophen (Tylenol PM Extra Strength) 25-500 MG per tablet take 2 tablet by oral route every day at bedtime 2 Active acyclovir (Zovirax) 400 MG tablet TAKE 1 TABLET BY MOUTH EVERY 8 HOURS 2 Active Acetaminophen Extra Strength 500 MG tablet TAKE 1 TABLET BY MOUTH EVERY 4 TO 6 HOURS NEEDED. DO NOT EXCEED 8 TABLETS IN 24 HOURS 2 Active acetaminophen (Tylenol) 500 MG tablet take 1 tablet by oral route every 4 - 6 hours as needed not to exceed 8 tablets per 24hrs 2 Active acetaminophen (Tylenol 8 Hour) 650 MG ER tablet take 2 tablet by oral route every 8 hours as needed swallowing whole with water. Do not break, crush, dissolve and/or chew. 2 Active famotidine (Pepcid) 20 MG tabletIndication s:Abdominal pain, unspecified abdominal location Take 1 tablet (20 mg) by mouth 2 times daily. 60 tablet 11 3 Active amLODIPine (Norvasc) 5 MG tabletIndication s:Essential hypertension TAKE 1 TABLET BY MOUTH EVERY MORNING 90 tablet 3 4 Active olmesartan (BENIcar) 20 MG tabletIndication s:Essential hypertension TAKE 1 TABLET BY MOUTH EVERY DAY 90 tablet 3 4 Active pantoprazole (Protonix) 40 MG EC tabletIndication s:Dyspepsia TAKE 1 TABLET BY MOUTH EVERY DAY 90 tablet 3 4 Active amoxicillin (Amoxil) 500 MG capsuleIndicatio ns:Strep pharyngitis Take 1 capsule (500 mg) by mouth every 12 (twelve) hours for 10 days. 20 capsule 5 01/24/20 25 Active Problems Problem Noted Date Diagnosed Date Gallbladder mass 07/08/2023 Overview (07/08/2023): ? ? [place] [facility] [place] 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 Cystic duct margin is free of dysplasia. Assessment & Plan (07/08/2023 5:25 AM EDT): ?? Follow up as scheduled with surgical oncology Medullary sponge kidney 06/28/2023 Overview (07/08/2023): ? ? [place] [facility] [place] for possible medullary sponge kidney with multiple bilateral non-obstructing renal stones. Per visit note plan for 24 hour urine collection and follow up in 2 months. Healthcare maintenance 06/28/2023 Overview (06/28/2023): Mammo: Pap: S/p hysterectomy (bleeding) no cervix. [facility]. C-scope: BMD: HCV Screen: HIV Screen: Immunizations: Screening Labs: HSV infection 04/03/2023 Overview (04/03/2023): ?? Acyclovir PRN Prediabetes 05/09/2022 Overview (04/03/2023): ?? A1c 5.7% 11/2022 Bicornuate uterus 11/22/2012 Pre-eclampsia 10/31/2012 Primary hypertension 10/31/2012 Overview (04/03/2023): ?? Amlodipine 5mg ?? Olmesartan 10mg Maintenance: BMP: 11/2022 Lipid Panel: 11/2022 - Aerobic exercise to reduce BP. Initial goal of 30 min walk 3-5x/week. Increase as tolerated. - low-sodium diet (goal: <2g/day) and heart healthy diet such as DASH to reduce BP and prevent ASCVD. - Home BP monitoring 1-2 x day with goal of <140/90. - Seek immediate medical attention for chest pain, palpitations, SOB, syncope, or sudden changes in mental status. - Do not change or discontinue current prescriptions without first consulting health care provider Assessment & Plan (04/03/2023 10:09 PM EDT): ?? BP elevated in office; did not take BP medications. Reports home readings well controlled. ?? Continue current regimen ?? RN BP check 2 weeks Resolved Problems Problem Noted Date Diagnosed Date Resolved Date Cough 12/16/2015 04/03/2023 Overview (11/24/2022): Last Assessment & Plan: Likely due to URI - trial of robitussin AC Headache 11/10/2013 04/03/2023 Overview (11/24/2022): Headache Encounters Date Type Department Care Team Description 02/14/2025 Orders Only [facility] External Provider, [facility] 01/13/2025 10:20 AM EST Office Visit [facility] [address] [place] [address] Clovis Irizarry MD Strep pharyngitis 12/06/2024 Orders Only [facility] [address] [place] [address] Winter Guerin, DDS 11/24/2024 2:00 PM EST Office Visit [facility] [address] [place] [address] Winter Guerin, DDS History of root canal treatment (Primary Dx) from Last 3 Months Immunizations Name Administration Dates Next Due DTaP, Unspecified 08/07/2009 Hep A, Adult 06/10/2015 Hep B, adult 09/16/2021,06/10/2015 Influenza Injectable Quadriv alant Preservative Free IIV4 MDCK 08/14/2020 Influenza injectable quadriv alent preservative free 09/16/2021,12/16/2015 Influenza, Unspecified 09/24/2009 Influenza, injectable, quadr ivalent, preservative free, pediatric 09/23/2009 Influenza, seasonal, injecta ble, preservative free 10/19/2024,09/02/2018,08/11/2017,2014,08/11/2013,10/31/2012 Novel [id number], all formulations 09/23/2009 Pfizer Covid-19 Vaccine 12+ Bivalent 01/26/2022 Pfizer Covid-19 Vaccine 12+ liliam-sucrose (Quevedo Cap) 01/26/2022 TD (adult), 2 Lf tetanus tox oid, preservative free, adsorbed 09/16/2021 Tdap 08/07/2009 Typhoid, ViCPs 06/10/2015 Family History Medical History Relation Name Comments Hypertension Brother Diabetes type II Father Hypertension Father Lung cancer Maternal Grandmother Hodgkin's lymphoma Mother Breast cancer Mother's Sister Diabetes type I Sister Relation Name Status Comments Brother Father Maternal Grandmother Mother Mother's Sister Sister Social History Tobacco Use Types Packs/Day Years Used Date Smoking Tobacco: Never Smokeless Tobacco: Never Tobacco Cessation:Counseling Given: Not Answered Alcohol Use Standard Drinks/Week Comments Yes 0 (1 standard drink = 0.6 oz pur e alcohol) Socially Depression Answer Date Recorded Patient Health Questionnaire-9 Score 0 06/28/2023 Housing Stability Answer Date Recorded What is your housing situation today? I have erin mcmullen 09/02/[address] you li ve. Do you have problems with any of the following? None of the above 09/02/2023 Food Insecurity Answer Date Recorded Within the past 12 months, y ou worried that your food would run out before you got money to buy more: Never True 09/02/2023 Within the past 12 months,th e food you bought just didn't last and you didn't have enough money to get more: Never True Transportation Answer Date Recorded In the past 12 months, has l ack of transportation kept you from medical appts, meetings, work or from getting things needed for daily living? No 09/02/2023 Utilities Answer Date Recorded In the past 12 months, has t he electric, gas, oil or water company threatened to shut off services in your home? No 09/02/2023 Depression Answer Date Recorded Patient Health Questionnaire-2 Score 0 06/28/2023 Comments Unknown Sex and Gender Information Value Date Recorded Sex Assigned at Female 09/14/2022 10:38 AM EDT Legal Sex Female 10:38 AM EDT Gender Identity Female 09/14/2022 10:38 AM EDT Sexual Orientation Straight 09/14/2022 10 :38 AM EDT Last Filed Vital Signs Vital Sign Reading Time Taken Comments Blood Pressure 150/100 01/13/2025 10:13 AM EST Pulse 86 01/13/2025 10:13 AM EST Temperature 36.1 ??C (97 ??F) 01/13/2025 10:13 AM EST Respiratory Rate 20 01/13/2025 10:13 AM EST Oxygen Saturation 98% 01/13/2025 10:13 AM EST Inhaled Oxygen Concentration - - Weight 87.7 kg (193 lb 6.4 oz) 01/13/2025 10:13 AM EST Height 175.3 cm (5' 9 ) 01/13/2025 10:13 AM EST Body Mass Index 28.56 01/13/2025 10:13 AM EST Plan of Treatment Health Maintenance Due Date Last Done Comments Alcohol/Substance Use Screening 1998 Family Planning (PISQ) 2001 Pap Smear 2007 Cervical Cancer Screening 02/25/2016 HPV/Cotest 02/25/2016 Hepatitis B Vaccines (3 of 3 - 19+ 3-dose series) 11/11/2021 09/16/2021, 06/10/2015 Dental Oral Exam 07/18/2022 01/14/2022 Dental Prophylaxis 07/25/2022 01/21/2022 Dental X-Ray: Bitewings 01/15/2023 01/14/2022, 07/18 Diabetes: Hemoglobin A1C 11/24/2023 023, 05/06/2022, 10/14/2021 Depression Screening 06/28/2024 06/28/2023, 06/28/20 23 SDOH Screening 06/28/2024 06/28/2023 COVID-19 Vaccine ( season) 2024 01/26/2022, 01/26/2022, 05/19/2021, Additional history exists Dental X-Ray: Full Mouth 01/22/2025 01/21/2022, 0312/2021 Tobacco Screening 11/24/2025 11/24/2024 Lipid Panel 11/24/2027 11/24/2022, 09/17/2021 DTaP/Tdap/Td Vaccines (4 - Td or Tdap) 09/16/2031 09/16/2021, 08/07/2009, 08/07/2009 Zoster Vaccines (1 of 2) 02/25/2036 RSV Patients and Patients Aged 60 years or older (1 - 1-dose 75+ series) 2061 Hepatitis A Vaccines Aged Out 06/10/2015 No long er eligible based on patient's age to complete this topic HIV Screening Completed 11/24/2022, 05/06/2022 Hepatitis C Screening Completed 11/24/2022, 022 Influenza Vaccine Completed 10/19/2024, , 08/14/2020, Additional history exists HIB Vaccines Aged Out No longer eligi ble based on patient's age to complete this topic HPV Vaccines Aged Out No longer eligi ble based on patient's age to complete this topic IPV Vaccines Aged Out No longer eligi ble based on patient's age to complete this topic Meningococcal Vaccine Aged Out No sterling torin eligible based on patient's age to complete this topic Pneumococcal Vaccine: Pediatrics (0 to 5 Years) and At-Risk Patients (6 to 49) Years) Aged Out No longer eligible based on patient's age to complete this topic RSV under 20 months Aged Out No longe r eligible based on patient's age to complete this topic Rotavirus Vaccines Aged Out No longer eligible based on patient's age to complete this topic Procedures Procedure Name Priority Date/Time Associated Diagnosis Comments XR KUB AND UPRIGHT 2 VIEWS Routine 02/16/2025 8:49 AM EDT POCT INFLUENZA B (ID NOW RAPID MOLECULAR) Routine 01/13/2025 10:22 AM EST Strep pharyngitis POCT INFLUENZA A (ID NOW RAPID MOLECULAR) Routine 01/13/2025 10:20 AM EST Strep pharyngitis POC LOWRY ID NOW STREP A Routine 01/13/2025 10:19 AM EST Strep pharyngitis POCT RAPID COVID ANTIGEN Routine 01/13/2025 10:17 AM EST Strep pharyngitis CASE PRESENTATION, DETAILED AND EXTENSIVE TREATMENT PLANNING Routine 11/24/2024 2:00 PM EST History of root canal treatment 31 O RESIN-BASED COMPOSITE - 1 SURF, POSTERIOR Routine 11/24/2024 2:00 PM EST History of root canal treatment HEPATITIS C AB W/REFL TO HCV RNA, QN, PCR Routine 11/24/2022 11:21 AM EST Healthcare maintenance HIV 1/2 ANTIGEN/ANTIBODY, FOURTH GENERATION W/RFL Routine 11/24/2022 11:21 AM EST Healthcare maintenance HEMOGLOBIN A1C Routine 11/24/2022 11:21 AM EST Essential hypertension LIPID PANEL, STANDARD Routine 11/24/2022 11:21 AM EST Essential hypertension PROPHYLAXIS - ADULT Routine 01/21/2022 1 2:00 AM EST PANORAMIC RADIOGRAPHIC IMAGE Routine 01/21/2022 12:00 AM EST INTRAORAL - COMPLETE SERIES OF RADIOGRAPHIC IMAGES Routine 01/14/2022 12:00 AM EST COMPREHENSIVE ORAL EVALUATION - NEW OR ESTABLISHED PATIENT Routine 01/14/2022 12:00 AM EST from Last 3 Months or Most Recently Relevant to Health Maintenance Results * XR KUB and Upright 2 Views (02/16/2025 8:49 AM EDT) Anatomical Region Laterality Modality Radiographic Sarah ging 02/16/2025 8:49 AM EDT Narrative 02/16/2025 8:50 AM EDT ? [facility] ?[address] ?[place] [address] ?XRay Report ? Signed ? Patient: Valentine,Rosa D ?MR#: [id number] ? : 1985 ?Acct:[id number] ? Age/Sex: 39 / F ?ADM Date: 02/14/25 ? Loc: HO.XRAY ? Attending Dr: Chris Crabtree MD ? Ordering Physician: Chris Crabtree MD ?? Date of Service: 02/14/25 ?? Procedure(s): XR KUB ?? Accession Number(s): [id number] ? cc: Chris Crabtree MD; Rehana FlowerP ? CLINICAL HISTORY: N20.0 - Calculus of kidney ? 1 view abdomen ? Comparison: None ? Findings: ?? No pneumoperitoneum or pneumatosis. ?? No abnormal calcifications. ?? No acute fractures. ? IMPRESSION: ?? The bowel gas pattern is within normal limits ? This document has been electronically signed by: Dereck Hector MD on ?? 02/16/2025 08:49:28 ? Dictated By: ?Dereck Hector MD ? Signed By: ?<Electronically signed by Dereck Hector MD in OV> ?02/16/25 0850 ? DD/ 0849 ? TD/TT: 02/16/25 0849 ? Mold Stacker: ? Procedure Liz Goetz - 02/16/[address] [address] XRay Report Signed Patient: Himanshu Valentinelia DMR#: [id number] : 1985Acct:[id number] Age/Sex: 39 / FADM Date: 02/14/25 Loc: HO.DUNGAY Attending Dr: Chris Crabtree MD Ordering Physician: Chris Crabtree MD Date of Service: 02/14/25 Procedure(s): XR KUB Accession Number(s): [id number] cc: Chris Crabtree MD; [facility] CLINICAL HISTORY: N20.0 - Calculus of kidney 1 view abdomen Comparison: None Findings: No pneumoperitoneum or pneumatosis. No abnormal calcifications. No acute fractures. IMPRESSION: The bowel gas pattern is within normal limits This document has been electronically signed by: Dereck Hector MD on 02/16/2025 08:49:28 Dictated By: Dereck Hector MD Signed By: <Electronically signed by Dereck Hector MD in OV> 02/16/25 0850 DD/ 0849 TD/TT: 02/16/25 0849 Mold Stacker: [facility] External Provider IMG XR PROCEDURES Final Result * POCT Rapid Influenza B LOWRY ID NOW (01/13/2025 10:22 AM EST) Influenza B Negative Negative, Indeterminate [facility] QC Media Lot # [id number] [facility] Lot# Expiration Date [facility] Swab 01/13/2025 10:2 2 AM EST Clovis Irizarry MD POINT OF CARE TEST ENTER/EDIT OR DERABLES Final Result [facility] [address] [place] [address] [phone] * POCT Rapid Influenza A LOWRY ID NOW (01/13/2025 10:20 AM EST) Influenza A Negative Negative, Indeterminate [facility] QC Media Lot # [id number] [facility] Lot# Expiration Date [facility] Swab 01/13/2025 10:2 0 AM EST us Clovis Irizarry MD POINT OF CARE TEST ENTER/EDIT OR DERABLES Final Result [facility] [address] [place] [address] [phone] * (ABNORMAL) POCT Rapid Strep A LOWRY ID NOW (01/13/2025 10:19 AM EST) [facility] Rapid Strep A Screen Positive( A) Negative, None Detected QC Media Lot # [id number] Lot# Expiration Date Swab 01/13/2025 10:1 9 AM EST us Clovis Irizarry MD POINT OF CARE TEST ENTER/EDIT OR DERABLES Final Result * POCT Rapid Covid-19 BinaxNOW (01/13/2025 10:17 AM EST) [facility] Rapid COVID Ag Negative QC Media Lot # [id number] Lot# Expiration Date [id number] Swab 01/13/2025 10:1 7 AM EST us Clovis Irizarry MD POINT OF CARE TEST ENTER/EDIT OR DERABLES Final Result * Hepatitis C Antibody with Reflex to HCV, RNA, Quantitative, Real-Time PCR (11/24/2022 11:21 AM EST) [facility] Hepatitis C Antibody NON-REACT HAKEEM NON-REACT HAKEEM [facility] Index <0.02 <1.00 [facility] Comment: HCV antibody was non-reactive. There is no laboratory evidence of HCV infection. In most cases, no further action is required. However, if recent HCV exposure is suspected, a test for HCV RNA (test code 71152) is suggested. For additional information please refer to http://education.[employer]/faq/XZM67e4 (This link is being provided for informational/ educational purposes only.) Blood Venous blood specimen / Unknown 11/24/2022 11:21 AM EST 11/24/2022 11:22 AM EST Narrative [facility] - 11/25/2022 11:05 AM EST FASTING:YES FASTING: YES [facility] LAB BLOOD ORDERABLES Final Re sult [facility] [address] [place] [address], [place] [address] [facility] [place] [facility] [address] [facility], ([address]) [place] [address] * HIV-1/2 Antigen and Antibodies, Fourth Generation, with Reflexes (11/24/2022 11:21 AM EST) Pathologist [facility] [place] HIV Antigen/Antibody, 4th Generation NON-REAC TIVE NON-REAC TIVE [facility] Comment: HIV-1 antigen and HIV-1/HIV-2 antibodies were not detected. There is no laboratory evidence of HIV infection. PLEASE NOTE: This information has been disclosed to you from records whose confidentiality may be protected by state law. ??If your state requires such protection, then the state law prohibits you from making any further disclosure of the information without the specific written consent of the person to whom it pertains, or as otherwise permitted by law. A general authorization for the release of medical or other information is NOT sufficient for this purpose. ?? For additional information please refer to http://education.[employer]/faq/FTA963 (This link is being provided for informational/ educational purposes only.) The performance of this assay has not been clinically validated in patients less than 2 years old. Blood Venous blood specimen / Unknown 11/24/2022 11:21 AM EST 11/24/2022 11:22 AM EST Narrative [facility] - 11/25/2022 11:05 AM EST FASTING:YES FASTING: YES [facility] LAB BLOOD ORDERABLES Final Re sult [address], [place] [address] [facility] [place] [facility] [address] [facility], ([address]) [place] [address] * (ABNORMAL) Hemoglobin A1c (11/24/2022 11:21 AM EST) [facility] Hemoglobin A1c 5.7(H) <5.7 % of total Hgb [facility] Comment: For someone without known diabetes, a hemoglobin A1c value between 5.7% and 6.4% is consistent with prediabetes and should be confirmed with a follow-up test. For someone with known diabetes, a value <7% indicates that their diabetes is well controlled. A1c targets should be individualized based on duration of diabetes, age, comorbid conditions, and other considerations. This assay result is consistent with an increased risk of diabetes. Currently, no consensus exists regarding use of hemoglobin A1c for diagnosis of diabetes for children. Blood Venous blood specimen / Unknown 11/24/2022 11:21 AM EST 11/24/2022 11:22 AM EST Narrative [facility] - 11/25/2022 11:05 AM EST FASTING:YES FASTING: YES [facility] LAB BLOOD ORDERABLES Final Re sult [address], [place] [address] [facility] [place] [facility] [address] [place] [address], ([address]) [place] [address] * (ABNORMAL) Lipid Panel, Standard (11/24/2022 11:21 AM EST) [facility] Cholesterol, Total 195 <200 mg/dL [facility] HDL Cholesterol 32(L) > OR = 50 mg/dL [facility] Triglycerides 154(H) <150 mg/dL [facility] LDL Cholesterol 134(H) mg/dL (calc) [facility] Comment: Reference range: <100 Desirable range <100 mg/dL for primary prevention; ?? <70 mg/dL for patients with CHD or diabetic patients with > or = 2 CHD risk factors. LDL-C is now calculated using the Troy-Bertrand calculation, which is a validated novel method providing better accuracy than the Friedewald equation in the estimation of LDL-C. Troy SS et al. MARCK. 2013;310(19): 5340-4417 (http://education.[employer]/faq/EBF382) Chol/HDLC Ratio 6.1(H) <5.0 (calc) [facility] Non-HDL Cholesterol 163(H) <130 mg/dL (calc) [employer] Comment: For patients with diabetes plus 1 major ASCVD risk factor, treating to a non-HDL-C goal of <100 mg/dL (LDL-C of <70 mg/dL) is considered a therapeutic option. Blood Venous blood specimen / Unknown 11/24/2022 11:21 AM EST 11/24/2022 11:22 AM EST Narrative [facility] - 11/25/2022 11:05 AM EST FASTING:YES FASTING: YES [facility] BLOOD ORDERABLES Final Re sult [facility] [address], [place] [address] [facility] [address] [facility], ([address]) [place] [address] from Last 3 Months or Most Recently Relevant to Health Maintenance Insurance [address] [place] [address] , [address] [place] [id number] [address] [place] [address] DENTAL - [facility] PARTIAL (MEDICAID) [place] [address] [address] [place] [address] [place] [address] [place] [address] Care Teams Supervisor Heat Treating Relationship Specialty Start Date End Date NikolskiRehana, ORNAMENTER HAND [address] [place] [address] PCP - General Family Medicine 07/09/22
--- OUTSIDE RECORDS SUMMARY | 2025-02-19 18:37 | XMS_ITS | Encounter Summary ---
Author Organization [employer] Address [address] [facility] [address]t [place] [address] Care Team Providers Care Line Director Name Role Phone Mundo [facility] Primary Care Provider [phone] Encounter Details Date Type Department Care Team ([facility] st Contact Info) Description 10/30/2024 Orders Only [facility] [address] [place] [address] Winter Guerin, DDS [address] [place] [address] Social History Tobacco Use Types Packs/Day Years [...] AM EDT documented as of this encounter Plan of Treatment Not on file documented as of this encounter Visit Diagnoses Not on filedocumented in this encounter Additional Health Concerns Assessment Noted Time PHQ-9 Depression Total Score: 0 06/28/20 23 3:14 PM EDT documented as of this encounter Care Teams Line Director Relationship Specialty Start Date End Date Rehana Flower FNP [address] [place] [id number] PCP - General Family Medicine 07/09/22 documented as of this encounter
--- OUTSIDE RECORDS SUMMARY | 2025-02-19 18:37 | XMS_ITS | Encounter Summary ---
Author Organization [employer] Address [address] [facility] 7t [place] [address] Care Team Providers Care Occupational Health Manager Name Role Phone Mundo [facility] Primary Care Provider [phone] Encounter Details Date Type Department Care Team (Late st Contact Info) Description 02/14/2025 Orders Only [facility] External Provider, [facility] Social History Tobacco Use Types Packs/Day Years [...] on file documented as of this encounter Procedures Procedure Name Priority Date/Time Associated Diagnosis Comments XR KUB AND UPRIGHT 2 VIEWS Routine 02/16/2025 8:49 AM EDT documented in this encounter Results * XR KUB and Upright 2 Views (02/16/2025 8:49 AM EDT) Anatomical Region Laterality Modality Radiographic Sarah ging 02/16/2025 8:49 AM EDT Narrative 02/16/2025 8:50 AM EDT ? [facility] ?[address] ?[place] [address] ?XRay Report ? Signed ? Patient: Rosa Valentine ?MR#: [id number] ? : 1985 ?Acct:[id number] ? Age/Sex: 39 / F ?ADM Date: 02/14/25 ? Loc: HO.XRAY ? Attending Dr: Chris Crabtree MD ? Ordering Physician: Chris Crabtree MD ?? Date of Service: 02/14/25 ?? Procedure(s): XR KUB ?? Accession Number(s): [id number] ? cc: Chris Crabtree MD; Rehana Flower ? CLINICAL HISTORY: N20.0 - Calculus of [...] DD/ 0849 ? TD/TT: 02/16/25 0849 ? Test Analyst: ? Procedure Note Liz Barnes - 02/16/2025 [facility] [address] [place] [address] XRay Report Signed Patient: Rosa Valentine DMR#: [id number] : 1985Acct:[id number] Age/Sex: 39 / FADM Date: 02/14/25 Loc: HO.XRAY Attending Dr: Chris Crabtree MD Ordering Physician: Chris Crabtree MD Date of Service: 02/14/25 Procedure(s): XR KUB Accession Number(s): [id number] cc: Chris Crabtree MD; Rehana Flower [facility] CLINICAL HISTORY: N20.0 - Calculus of kidney [...] 02/16/25 0850 DD/ 0849 TD/TT: 02/16/25 0849 Test Analyst: [facility] External Provider IMG XR PROCEDURES Final Result documented in this encounter Visit Diagnoses Not on filedocumented in this encounter Additional Health Concerns Assessment Noted Time PHQ-9 Depression Total Score: 0 06/28/20 23 3:14 PM EDT documented as of this encounter Care Teams Occupational Health Manager Relationship Specialty Start Date End Date Rehana Flower FNP [address] [place] [address] PCP - General Family Medicine 07/09/22 documented as of this encounter
--- OUTSIDE RECORDS SUMMARY | 2025-02-19 18:37 | XMS_ITS | Encounter Summary ---
Author Organization [employer] Address [address] [facility] 7t [place] [address] Care Team Providers Care Irrigation District Manager Name Role Phone Mundo [facility] Primary Care Provider [phone] Encounter Details Date Type Department Care Team ([facility] st Contact Info) Description 12/06/2024 Orders Only [facility] ADULT DENTAL [address] [place] [address] Winter Guerin, DDS [address] [place] [address] Social History Tobacco Use Types Packs/Day Years [...] documented as of this encounter Care Teams Irrigation District Manager Relationship Specialty Start Date End Date Rehana Flower FNP [address] [place] [address] PCP - General Family Medicine 07/09/22 documented as of this encounter
--- OUTSIDE RECORDS SUMMARY | 2025-02-19 18:37 | XMS_ITS | Encounter Summary ---
Author Organization [employer] Address [address] [facility] [address], [place] [address] Care Team Providers Care Bleacher Sulfite Pulp Name Role Phone [facility] Primary Care Provider [phone] Reason for Visit * Reason Onset Date Comments Med Refill 05/06/2024 Encounter Details Date Type Department Care Team (Late st Contact Info) Description 05/06/2024 Refill [facility] [address] [place] [address] [facility] [address] [place] [address] Dyspepsia Social History Tobacco Use Types Packs/Day Years [...] documented as of this encounter Visit Diagnoses Diagnosis Dyspepsia Dyspepsia and other specified disorders of function of stomach documented in this encounter Additional Health Concerns Assessment Noted Time PHQ-9 Depression Total Score: 0 06/28/20 23 3:14 PM EDT documented as of this encounter Care Teams Bleacher Sulfite Pulp Relationship Specialty Start Date End Date Rehana Flower FNP [address] [place] [address] PCP - General Family Medicine 07/09/22 documented as of this encounter
--- OUTSIDE RECORDS SUMMARY | 2025-02-19 18:37 | XMS_ITS | Encounter Summary ---
Author Organization [employer] Address [address] [place] [address] 7 [place] [address] Care Team Providers Care Pharmacy Picking Technician Name Role Phone Mundo, Rehana [facility] Primary Care Provider [phone] Encounter Details Date Type Department Care Team (Latest Contact Info) Description 03/23/2022 Abstract [facility] CONVERSIONS Dental, Provider, DDS Social History Tobacco Use Types Packs/Day Years Used Date Smoking Tobacco: Never Assessed Comments Unknown Sex and Gender Information Value Date Recorded Sex Assigned at Female 09/14/2022 10:38 AM EDT Legal Sex Female 10:38 AM EDT Gender Identity Female 09/14/2022 10:38 AM EDT Sexual Orientation Straight 09/14/2022 10 :38 AM EDT documented as of this encounter Plan of Treatment Not on file documented as of this encounter Visit Diagnoses Not on filedocumented in this encounter Care Teams Pharmacy Picking Technician Relationship Specialty Start Date End Date Rehana Flower FNP [address] [place] [address] PCP - General Family Medicine 07/09/22 documented as of this encounter
== END 2025-02-19 16:52 | disposition home or self-care (01) ==
LOC: HO.HUSH 16:04
PROVIDERS: PCP Registered Nurse; Visit Provider Urology
DX: Z13.9 Encounter for screening, unspecified (principal)

== ENCOUNTER → 2025-02-19 16:03 | Outpatient (BNVA) | payer OTHER, MEDICAID, SELFPAY | PROVIDERS: PCP Registered Nurse; Visit Provider Urology | DX: N20.0 Calculus of kidney (principal) | CPT/HCPCS: 81003 ==

== ENCOUNTER 2025-05-28 09:09 | Outpatient (REF) | payer OTHER, MEDICAID, SELFPAY ==
--- OUTSIDE RECORDS SUMMARY | 2025-05-28 09:28 | XMS_ITS | Encounter Summary ---
Author Organization [employer] Address [address] [place] [address] Care Team Providers Care Dimmer Board Operator Name Role Phone Merkel [facility] Primary Care Provider [phone] Encounter Details Date Type Department Care Team (Latest Contact Info) Description 03/23/2022 Abstract [facility] CONVERSIONS Dental, Provider, DDS Social History Tobacco [...] Care Team ( st Contact Info) Description 06/20/2025 9:00 AM EDT Telemedicine [facility] MEDICINE [address] [place] [address] MerkelRehana [facility] [address] [place] [address] documented as of this encounter Visit Diagnoses Not on filedocumented in this encounter Care Teams Dimmer Board Operator Relationship Specialty Start Date End Date Rehana Flower FNP [address] [place] [address] PCP - General Family Medicine 07/09/22 documented as of this encounter
[2025-05-28 11:58] LABS: Hemoglobin A1C 150.7241 umol/L; Total Hemoglobin (HGBA1C) 3591.6582 umol/L
[2025-05-28 12:24] LABS: Anion Gap 9 (12-20); Blood Urea Nitrogen 14 mg/dL (9-16); Calcium 9.2 mg/dL (8.4-10.2); Carbon Dioxide 28 mmol/L (22-29); Chloride 105 mmol/L (96-108); Cholesterol 168 mg/dL (<200); Estimated Glomerular Filt Rate > 60; HDL Cholesterol 30 mg/dL (>40); Potassium 4.4 mmol/L (3.3-5.1); Sodium 138 mmol/L (135-145); Triglycerides 223 mg/dL (<150)
== END 2025-05-28 09:10 | disposition home or self-care (01) ==
LOC: HO.HHCL 09:09
PROVIDERS: PCP Registered Nurse; Visit Provider Registered Nurse
DX: Z13.1 Encounter for screening for diabetes mellitus (principal); I10 Essential (primary) hypertension
CPT/HCPCS: 36415; 80048; 80061; 83036

== ENCOUNTER 2025-06-26 07:50 | Outpatient (REF) | payer OTHER, MEDICAID, SELFPAY ==
--- OUTSIDE RECORDS SUMMARY | 2025-06-26 07:53 | XMS_ITS | Encounter Summary ---
Author Organization [employer] [facility] Address [address] [facility] [address] [place] [address] Phone Care Team Providers Care Maxillofacial Prosthodontist Name Role Phone Dionne Staton MD, MPH Primary Care Provider [phone] Dionne Staton MD, MPH Unavailable [phone] Dionne Staton MD, MPH Unavailable [phone] Dionne Staton MD, MPH Unavailable [phone] Pcp, Unknown Primary Care Provider Unavailabl e Dionne Staton MD, MPH Unavailable [phone] Encounter Details Date Type Department Care Team (Late st Contact Info) Description 06/22/2016 Procedure Pass [facility] for Outpatient Care - MRI [address] [facility], 6th [place] [address] Social History Tobacco Use Types Packs/Day Years Used Date Smoking Tobacco: Never Alcohol Use Standard Drinks/Week Comments No 0 (1 standard drink = 0.6 oz pur e alcohol) Comments No Sex and Gender Information Value Date Recorded Sex Assigned at Female 11/22/2017 9:39 AM EST Legal Sex Female 5:08 PM EST Gender Identity Female Sexual Orientation Straight 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 Not on file Not on file documented as of this encounter Plan of Treatment Not on file documented as of this encounter Visit Diagnoses Not on filedocumented in this encounter Care Teams Maxillofacial Prosthodontist Relationship Specialty Start Date End Date Dionne Staton MD, MPH [address] [place] [address] [email or web address] PCP - General 05/15/14 06/29/18 Pcp, Unknown PCP - General 06/30/18 Dionne Staton MD, MPH [address] [facility] [place] [address] [email or web address] Insurance Assigned Provider 09/21/1502/27 Dionne Staton MD, MPH [address] [facility] [place] [address] [email or web address] Partners Attributed Provider 01/19/16 3/12/02 Dionne Staton MD, MPH [facility] [place] [address] [email or web address] Insurance Assigned Provider 03/19/1806/29 Dionne Staton MD, MPH [facility] [place] [address] [email or web address] Insurance Assigned Provider 03/19/18 documented as of this encounter Additional Source Comments The information contained in this document represents components of the legal health record. It is not the complete legal health record.[facility]
--- NOTE | 2025-06-26 07:54 | EMG_ITS ---
Bilateral median and ulnar motor and sensory studies were performed bilateral radial sensory and median and lateral antecubital brachial sensory studies were performed and EMG needle examination was performed. Impression: Mild bilateral median neuropathy across carpal tunnel MTDD
== END 2025-06-26 07:51 | disposition home or self-care (01) ==
LOC: HO.NEURO 07:50
PROVIDERS: PCP Registered Nurse; Visit Provider Registered Nurse
DX: G56.13 Other lesions of median nerve, bilateral upper limbs (principal); R20.0 Anesthesia of skin; R20.2 Paresthesia of skin
CPT/HCPCS: 95886; 95913

== ENCOUNTER → 2025-06-26 07:54 | Outpatient (BNV) | payer OTHER, MEDICAID, SELFPAY | PROVIDERS: PCP Registered Nurse; Visit Provider Psychiatry & Neurology Neurology | DX: G56.03 Carpal tunnel syndrome, bilateral upper limbs (principal) | CPT/HCPCS: 95886; 95913 ==

== ENCOUNTER 2025-08-28 15:35 | Outpatient (AMB) | payer OTHER, MEDICAID, SELFPAY ==
--- NOTE | 2025-08-28 15:36 | MHC.OFFVIS ---
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 She has bilateral varicose veins but states she has one on her left leg that is painful. Patient experiences cramping as well, night time is worse. She states she has sciatica. 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 Complaints include pain over varicosities, swelling of lower extremities, cramping, fatigue, and heaviness of the lower extremities. 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 It is noted more so in left calf leg. Patient denies any previous venous surgery or injections. Patient denies any history of DVT/ PE. Patient denies any history of phlebitis. Trial of compression includes - [id number] They now present for vascular evaluation regarding their varicose veins. PFSH Medical History HTN (hypertension) Surgical History Hx of lithotripsy History of laparoscopic cholecystectomy (06/03/23) History of abdominoplasty H/O: hysterectomy Family History Mother Throat cancer Maternal Aunt Breast cancer Social History Alcohol intake: current Alcohol intake frequency: 0-2 drinks per day Patient Tobacco Use Status: Never used Tobacco Review of Systems Const Reports as per HPI ENT Reports no additional complaints Card Denies chest pain, Denies chest pain at rest and Denies chest pain with activity Resp Denies chest congestion and Denies cough GI Reports no additional complaints Musc Details: pain over varicosities, aching of lower extremities, swelling, cramping, heaviness and tiredness, itching Denies abnormal gait Skin/Breast Reports pruritus and Denies wounds Neuro Reports no additional complaints and Denies abnormal gait Psych Denies no additional complaints Physical Exam Const General: cooperative, healthy appearing and comfortable Orientation/consciousness: oriented to person, oriented to place and oriented to time Neck Carotids: no bruits Chest Chest palpation & inspection: normal inspection of the chest and normal palpation of entire chest wall Resp Effort & Inspection: normal respiratory effort and able to speak in complete sentences Cardio Rate: regular rate Heart sounds: S1 normal heart sound present and S2 normal heart sound present Peripheral pulses: Peripheral pulses 2+ throughout GI Inspection: Yes normal to inspection Skin Other: +2 edema, large rope-like varicosities greater than 4 mm left calf CEAP Classification C4 - skin color changes Ep - Etiology Primary As - superficial veins P - reflux General skin exam: dry skin Neuro General: oriented to person, oriented to place and oriented to time Extrem Right lower extremity: full ROM, normal capillary refill and edema Left lower extremity: full ROM, normal capillary refill and edema Psych Mental Status: mental status grossly normal Assessment & Plan Assessment & Plan (1) Varicose veins of left lower extremity with inflammation: Code(s): I83.12 - Varicose veins of left lower extremity with inflammation Category: Medical Plan: In short, the patient has evidence of venous insufficiency. I have discussed the pathophysiology with the patient. In addition I have provided informational material regarding venous disease to the patient. We have discussed conservative measures including compression, elevation, and exercise. I have also provided a handout regarding appropriate use of compression stockings and where to purchase good compression stockings as well. I have taken the liberty of ordering venous insufficiency testing with the patient. They will follow up with me after testing. The patient had an opportunity to ask questions regarding the treatment plan. All questions were answered. Imaging studies, laboratory studies and physical exam results were discussed and reviewed in detail. No major barriers to understanding were identified. The patient expressed understanding and agreement with the above treatment plan. The patient is aware they should contact our office by phone for worsening of the current condition or the appearance of new symptoms. Thank you for allowing me to participate in the vascular care of this patient. If you have any questions or concerns regarding the treatment for the above condition please do not hesitate to contact me. The office telephone contact is [phone]. This note is constructed using voice recognition software. While every effort has been made to ensure accuracy, movie extra errors may have been included. Thank you for allowing me to participate in the care of your patient. Yours sincerely, Fausto Mendoza MD, FACS, R.P.V.I. Coding Level of Care Code New Pt Level 4 (88465) Diagnoses Varicose veins of left lower extremity with inflammation I83.12
--- OUTSIDE RECORDS SUMMARY | 2025-08-28 18:18 | XMS_ITS | Encounter Summary ---
Author Organization [employer] Address [address] [facility] 7 [place] [address] Care Team Providers Care Head Loft Worker Name Role Phone Mundo [facility] Primary Care Provider [phone] Encounter Details Date Type Department Care Team ([facility] st Contact Info) Description 08/07/2025 Orders Only [facility] ADULT DENTAL [address] [place] [address] Topete-MalikWinter khan, DDS [address] [place] [address] Social History Tobacco Use Types Packs/Day Years Used Date Smoking Tobacco: Never Smokeless Tobacco: Never Alcohol Use Standard Drinks/Week Comments Yes 0 (1 standard drink = 0.6 oz pur e alcohol) Socially Depression Answer Date Recorded Patient Health Questionnaire-9 Score 0 06/28/2023 Housing Stability Answer Date Recorded What is your housing situation today? I have erin mcmullen 05/11/[address] you li ve. Do you have problems with any of the following? None of the above 05/11/2025 Food Insecurity Answer Date Recorded Within the past 12 months, y ou worried that your food would run out before you got money to buy more: Never True 05/11/2025 Within the past 12 months,th e food you bought just didn't last and you didn't have enough money to get more: Never True Transportation Answer Date Recorded In the past 12 months, has l ack of transportation kept you from medical appts, meetings, work or from getting things needed for daily living? No 05/11/2025 Utilities Answer Date Recorded In the past 12 months, has t he electric, gas, oil or water company threatened to shut off services in your home? No 05/11/2025 Depression Answer Date Recorded Patient Health Questionnaire-2 Score 0 05/21/2025 Internet Access Answer Date Recorded Internet Access Q1 Yes 05/11/2025 Internet Access Q2 Not on file 05/11/2025 Comments No Sex and Gender Information Value [...] documented as of this encounter Care Teams Head Loft Worker Relationship Specialty Start Date End Date Rehana Flower FNP [address] [place] [address] PCP - General Family Medicine 07/09/22 documented as of this encounter
--- OUTSIDE RECORDS SUMMARY | 2025-08-28 18:18 | XMS_ITS | Encounter Summary ---
Author Organization [employer] Address [address] [place] [address] [address] [address] Care Team Providers Care Frame Hand Name Role Phone Mundo Rehana [facility] Primary Care Provider [phone] Encounter Details Date Type Department Care Team (Latest Contact Info) Description 03/23/2022 Abstract [facility] CONVERSIONS Dental, Provider, DDS Social History [...] on filedocumented in this encounter Care Teams Frame Hand Relationship Specialty Start Date End Date Rehana Flower HEALTH CENTER MANAGER [address] [place] [address] PCP - General Family Medicine 07/09/22 documented as of this encounter
--- OUTSIDE RECORDS SUMMARY | 2025-08-28 18:18 | XMS_ITS | Clinical Summary ---
Author Organization [employer] Address 75 [facility] 7 [place] [address] Care Team Providers Care Supervisor Inspection Name Role Phone Rehana Flower [facility] Primary Care Provider [phone] Allergies Active Allergy Reactions Criticality Noted Date Comments Aspirin 03/10/2012 Other reaction(s): GI Problems, Other (See Comments) BOTHERS HER STOMACH Latex Itching,Rash Low 03/10/2012 Other reaction(s): Rash, Rash Medications * This document contains information received from the source organization and may not represent a complete record from that organization. Vitamins-Lipotrop ics (B Complex Formula 1, Lipotrop,) tablet Ac tive ibuprofen 800 MG tablet TAKE 1 TABLET BY MOUTH THREE TIMES DAILY WITH FOOD 2 Active docusate sodium (Colace) 100 MG capsule TAKE 1 CAPSULE BY MOUTH EVERY DAY 2 Active Acetaminophen PM 500-25 MG per tablet TAKE 2 TABLETS BY MOUTH AT BEDTIME 2 Active diphenhydrAMINE-a cetaminophen (Tylenol PM Extra Strength) 25-500 MG per [...] chew. 2 Active famotidine (Pepcid) 20 MG tabletIndications :Abdominal pain, unspecified abdominal location Take 1 tablet (20 mg) by mouth 2 times daily. 60 tablet 11 3 Active amLODIPine (Norvasc) 5 MG tabletIndications :Essential hypertension TAKE 1 TABLET BY MOUTH EVERY MORNING 90 tablet 3 4 Active olmesartan (BENIcar) 20 MG tabletIndications :Essential hypertension TAKE 1 TABLET BY MOUTH EVERY DAY 90 tablet 3 4 Active pantoprazole (Protonix) 40 MG EC tabletIndications :Dyspepsia TAKE 1 TABLET BY MOUTH EVERY DAY 90 tablet 3 4 Active hydrOXYzine HCl (Atarax) 25 MG tabletIndications :Anxiety Take 1-2 tablets by oral route as needed up to four times daily for anxiety 90 tablet 1 5 Active azithromycin (Zithromax) 250 MG tablet Take (2) tabs 1st day; take (1) tab next 4 days. 6 tablet 5 Active Active Problems Problem Noted Date Diagnosed Date PTSD (post-traumatic stress disorder) 05/21/2025 YANIQUE (generalized anxiety disorder) 05/21/2025 Gallbladder mass 07/08/2023 Overview (07/08/2023): S/p laparoscopic cholecystectomy with Dr. Gonsalves at [facility] 06/03/23. 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 Cystic duct margin is free of dysplasia. Assessment & Plan (07/08/2023 5:25 AM EDT): Follow up as scheduled with surgical oncology Medullary sponge kidney 06/28/2023 Overview (07/08/2023): Saw urology at [facility] 05/12/23 for possible medullary sponge kidney with multiple bilateral non-obstructing renal stones. Per visit note plan for 24 hour urine collection and follow up in 2 months. Healthcare maintenance 06/28/2023 Overview (06/28/2023): Mammo: Pap: S/p hysterectomy (bleeding) no cervix. [facility]. C-scope: BMD: HCV Screen: HIV Screen: Immunizations: Screening Labs: HSV infection 04/03/2023 Overview (04/03/2023): Acyclovir PRN Prediabetes 05/09/2022 Overview (04/03/2023): A1c 5.7% 11/2022 Bicornuate uterus 11/22/2012 Pre-eclampsia 10/31/2012 Primary hypertension 10/31/2012 Overview (04/03/2023): Amlodipine 5mg Olmesartan 10mg Maintenance: BMP: 11/2022 Lipid Panel: [...] Assessment & Plan (04/03/2023 10:09 PM EDT): BP elevated in office; did not take BP medications. Reports home readings well controlled. Continue current regimen RN BP check 2 weeks Resolved Problems Problem Noted Date Diagnosed Date Resolved Date Cough 12/16/2015 04/03/2023 Overview (11/24/2022): Last Assessment & Plan: Likely due to URI - trial of robitussin AC Headache 11/10/2013 04/03/2023 Overview (11/24/2022): Headache Encounters Date Type Department Care Team Description 08/07/2025 Orders Only [facility] ADULT DENTAL [address] [place] [address] Winter Guerin, DDS 07/18/2025 Telephone [facility] MEDICINE [address] [place] [address] Gemma Shelby, RN Results 07/18/2025 Orders Only [facility] WALK-IN CENTER [address] [place] [address] Rehana Flower FNP Bilateral carpal tunnel syndrome (Primary Dx) 06/25/2025 Orders Only [facility] ADULT DENTAL [address] [place] [address] Winter Guerin, DDS 06/20/2025 Travel 06/19/2025 Telephone [facility] MEDICINE [address] [place] [address] Rehana Flower FNP chart prep 06/13/2025 Travel 06/05/2025 Telephone [facility] [address] [place] [address] Rehana Flower FNP 06/02/2025 Results Follow-Up [facility] [address] [place] [address] Rehana Flower FNP Hemoglobin A1c, Lipid Panel, Standard, Basic Metabolic Panel from Last 3 Months Immunizations Immunization Administration Dates Next Due DTaP, Unspecified 08/07/2009 Hep A, Adult 06/10/2015 Hep B, adult 09/16/2021,06/10/2015 Influenza Injectable Quadriv alant Preservative Free IIV4 MDCK 08/14/2020 Influenza injectable quadriv alent preservative free 09/16/2021,12/16/2015 Influenza, Unspecified 09/24/2009 Influenza, injectable, quadr ivalent, preservative free, pediatric 09/23/2009 Influenza, seasonal, injecta ble, preservative free 10/19/2024,09/02/2018,08/11/2017,2014,08/11/2013,10/31/2012 Novel [id number], all formulations 09/23/2009 Pfizer Covid-19 Vaccine 12+ [...] t he electric, gas, oil or water [employer] threatened to shut off services in your [...] Sign Reading Time Taken Comments Blood Pressure 160/102 05/21/2025 9:58 AM EDT Pulse 72 05/21/2025 9:58 AM EDT Temperature 36.6 C (97.8 F) 05/21/2025 9:58 AM EDT Respiratory Rate 16 05/21/2025 9:58 AM EDT Oxygen Saturation 98% 01/13/2025 10:13 AM EST Inhaled Oxygen Concentration - - Weight 86.6 kg (191 lb) 05/21/2025 9:58 AM EDT Height 175.3 cm (5' 9 ) 05/21/2025 9:58 AM EDT Body Mass Index 28.21 05/21/2025 9:58 AM EDT Plan of Treatment Health Maintenance Due Date Last Done Comments Family Planning (PISQ) 2001 HPV Vaccines (1 - 3-dose series) 2001 Pap Smear 2007 Cervical Cancer Screening 02/25/2016 HPV/Cotest 02/25/2016 Hepatitis B Vaccines (3 of 3 - 19+ 3-dose series) 11/11/2021 09/16/2021, 06/10/2015 Dental Oral Exam 07/18/2022 01/14/2022 Dental Prophylaxis 07/25/2022 01/21/2022 Dental X-Ray: Bitewings 01/15/2023 01/14/2022, 07/18 Dental X-Ray: Full Mouth 01/22/2025 01/21/2022, 0312/2021 COVID-19 Vaccine ( season) 2025 01/26/2022, 01/26/2022, 05/19/2021, Additional history exists Influenza Vaccine (#1) 2025 , 09/16/2021, 08/14/2020, Additional history exists SDOH Screening 05/11/2026 05/11/2025 Alcohol/Substance Use Screening 05/21/2026 05/21/2025 Depression Screening 05/21/2026 05/21/2025, 06/28/20 Tobacco Screening 05/22/2026 05/22/2025 Diabetes: Hemoglobin A1C 05/28/2026 025, 11/24/2022, 05/06/2022, Additional history exists Disability Screening 06/13/2026 06/13/2025 Lipid Panel 05/28/2030 05/28/2025, 11/15, 09/17/2021 DTaP/Tdap/Td Vaccines (3 - Tdap) 09/16/2031 09/16/2021, 08/07/2009, 08/07/2009 Zoster Vaccines (1 of 2) 02/25/2036 RSV Patients and Patients Aged 60 years or older (1 - 1-dose 75+ series) 2061 Hepatitis A Vaccines Aged Out 06/10/2015 No long er eligible based on patient's age to complete this topic HIV Screening Completed 11/24/2022, 05/06/2022 Hepatitis C Screening Completed 11/24/2022, 022 HIB Vaccines Aged Out No longer eligi ble based on patient's age to complete this topic IPV Vaccines Aged Out No longer eligi ble based on patient's age to complete this topic Meningococcal B Vaccine Aged Out No l onger eligible based on patient's age to complete this topic Meningococcal Vaccine Aged Out No sterling torin eligible based on patient's age to complete this topic Pneumococcal Vaccine: Pediatrics (0 to 5 Years) and At-Risk Patients (6 to 49) Years Aged Out No longer eligible based on patient's age to complete this topic RSV under 20 months Aged Out No longe r eligible based on patient's age to complete this topic Rotavirus Vaccines Aged Out No longer eligible based on patient's age to complete this topic Procedures Procedure Name Priority Date/Time Associated Diagnosis Comments BASIC METABOLIC PANEL Routine 05/28/2025 9:13 AM EDT Primary hypertension LIPID PANEL, STANDARD Routine 05/28/2025 9:13 AM EDT Primary hypertension HEMOGLOBIN A1C Routine 05/28/2025 9:13 AM EDT Primary hypertension HEPATITIS C AB W/REFL TO HCV RNA, QN, PCR Routine 11/24/2022 11:21 AM EST Healthcare maintenance HIV 1/2 ANTIGEN/ANTIBODY, FOURTH GENERATION W/RFL Routine 11/24/2022 11:21 AM EST Healthcare maintenance PROPHYLAXIS - ADULT Routine 01/21/2022 1 2:00 AM EST PANORAMIC RADIOGRAPHIC IMAGE Routine 01/21/2022 12:00 AM EST INTRAORAL - COMPLETE SERIES OF RADIOGRAPHIC IMAGES Routine 01/14/2022 12:00 AM EST COMPREHENSIVE ORAL EVALUATION - NEW OR ESTABLISHED PATIENT Routine 01/14/2022 12:00 AM EST from Last 3 Months or Most Recently Relevant to Health Maintenance Results * Hemoglobin A1c (05/28/2025 9:13 AM EDT) Hemoglobin A1c 6.0 <6.0 % [facility] Comment:Hemoglobin A1C Refer ence Range Adults: 4.8 - 6.0 % Non diabetic: < 6.0 % Goal: < 7.0 %Additional Action Suggested: > 8.0 %Note: Hemoglobin A1c results are invalid for patients with abnormal amounts of HbF. Blood transfusions may impact the HbA1c concentration in the patient sample. Estimated Average Glucose 126 mg/dL [facility] Comment:eAG = Estimated ave rage glucose which is %A1C expressed asaverage glucose, using the formula of the [id number] Glucose study (ADAG), Diabetes Care, Vol.31,#8,Aug. 2007 Blood Venous blood specimen / Unknown 05/28/2025 9:13 AM EDT 05/28/2025 11:29 AM EDT [facility] LAB BLOOD ORDERABLES Final Re sult [facility] [address] [place], [place] [phone] * (ABNORMAL) Lipid Panel, Standard (05/28/2025 9:13 AM EDT) Triglycerides 223(H) <150 mg/dL [facility] Comment:Desirable Triglyceri de: less than 150 mg/dLBorderline High Triglyceride 150-199 mg/dLHigh Triglyceride: 200-499 mg/dLVery High Triglyceride: greater than or equal to 5OO mg/dL Cholesterol 168 <200 mg/dL [facility] Comment:Desirable Cholestero l: less than 200 mg/dLBorderline High Cholesterol: 200-239 mg/dLHigh Cholesterol: greater than 239 mg/dL LDL Cholesterol Calculated 94 <100 mg/dL [facility] Comment:Desirable LDL: less than 100 mg/dLNear Optimal/Above Optimal LDL: 110- 129 mg/dLBorderline High LDL: 130-159 mg/dLHigh LDL: 160-189 mg/dLVery High LDL: greater than or equal to 190 mg/dL HDL Cholesterol 30(L) >40 mg/dL [facility] Comment:Desirable HDL: great er than 40 mg/dL Note: This HDL assay may give artificially low results in patients with liver disease. Blood Venous blood specimen / Unknown 05/28/2025 9:13 AM EDT 05/28/2025 11:32 AM EDT [facility] LAB BLOOD ORDERABLES Final Re sult [facility] [address] [place] [address] [phone] * (ABNORMAL) Basic Metabolic Panel (05/28/2025 9:13 AM EDT) Sodium 138 135 - 145 mmol/L [facility] Potassium 4.4 3.3 - 5.1 mmol/L [facility] Chloride 105 96 - 108 mmol/L [facility] Carbon Dioxide 28 22 - 29 mmol/L [facility] Anion Gap 9(L) 12 - 20 [facility] Urea Nitrogen (BUN) 14 9 - 16 mg/dL [facility] Creatinine, Serum 0.56 0.5 - 1.4 mg/dL [facility] Estimated Glomerular Filt Rate >60 [facility] Comment:Chronic Kidney Disea se: Estimated GFR < 60 mL/min/1.41k5Macsie Kidney Disease: Estimated GFR < 15 mL/min/1.73m2 Glucose 110 60 - 115 mg/dL [facility] Calcium 9.2 8.4 - 10.2 mg/dL [facility] Blood Venous blood specimen / Unknown 05/28/2025 9:13 AM EDT 05/28/2025 11:32 AM EDT [facility] LAB BLOOD ORDERABLES Final Re sult [facility] [address] [place] [address] [phone] * Hepatitis C Antibody with Reflex to HCV, RNA, Quantitative, Real-Time PCR (11/24/2022 11:21 AM EST) Hepatitis C Antibody NON-REACT HAKEEM NON-REACT HAKEEM [facility] [place] [employer] Index <0.02 <1.00 [facility] [place] [employer] Comment: HCV antibody was non-reactive. There is no laboratory evidence of HCV infection. In most cases, no further action is required. However, if recent HCV exposure is suspected, a test for HCV RNA (test code 69709) is suggested. For additional information please refer to http://education.[employer]/faq/LVK90e8 (This link is being provided for informational/ educational purposes only.) Blood Venous blood specimen / Unknown 11/24/2022 11:21 AM EST 11/24/2022 11:22 AM EST Narrative [facility] - 11/25/2022 11:05 AM EST FASTING:YES FASTING: YES [facility] LAB BLOOD ORDERABLES Final Re sult [facility] [address] [facility], [address]rd Fl, [place] [address] [facility] [place] [employer] [address] [facility], ([address]) [place] [address] * HIV-1/2 Antigen and Antibodies, Fourth Generation, with Reflexes (11/24/2022 11:21 AM EST) HIV Antigen/Antibody, 4th Generation NON-REAC TIVE NON-REAC TIVE [facility] [place] [facility] Comment: HIV-1 antigen and HIV-1/HIV-2 antibodies were not detected. There is no laboratory evidence of HIV infection. PLEASE NOTE: This information has been disclosed to you from records whose confidentiality may be protected by state law. If your state requires such protection, then the state law prohibits you from making any further disclosure of the information without the specific written consent of the person to whom it pertains, or as otherwise permitted by law. A general authorization for the release of medical or other information is NOT sufficient for this purpose. For additional information please refer to http://education.[employer].Worldcoo/faq/GBK607 (This link is being provided for informational/ educational purposes only.) The performance of this assay has not been clinically validated in patients less than 2 years old. Blood Venous blood specimen / Unknown 11/24/2022 11:21 AM EST 11/24/2022 11:22 AM EST Narrative [facility] - 11/25/2022 11:05 AM EST FASTING:YES FASTING: YES [facility] LAB BLOOD ORDERABLES Final Re sult [facility] [address], [place] [address] [facility] [place] [employer] [address] [facility], ([address]) [place] [address] from Last 3 Months or Most Recently Relevant to Health Maintenance Insurance [facility] , [address] [place] [id number] PARTIAL DENTAL - [place] PARTIAL (MEDICAID) [address] [place] [address] [address] [place] [address] Care Teams Supervisor Inspection Relationship Specialty Start Date End Date Rehana Flower FNP [address] [place] [address] [place] [address] PCP - General Family Medicine 07/09/22
--- OUTSIDE RECORDS SUMMARY | 2025-08-28 18:18 | XMS_ITS | Encounter Summary ---
Author Organization [employer] Address 75 [facility] 7t [place] [address] Care Team Providers Care Frame Expander Name Role Phone Mundo [facility] Primary Care Provider [phone] Encounter Details Date Type Department Care Team ([facility] st Contact Info) Description 10/30/2024 Orders Only [facility] ADULT DENTAL [address] [place] [address] Topete-MalikWinter khan, DDS [address] [place] [address] Social History Tobacco Use Types Packs/Day Years [...] documented as of this encounter Care Teams Frame Expander Relationship Specialty Start Date End Date Rehana Flower FNP [address] [place] [phone] PCP - General Family Medicine 07/09/22 documented as of this encounter
--- OUTSIDE RECORDS SUMMARY | 2025-08-28 18:18 | XMS_ITS | Encounter Summary ---
Author Organization [employer] Address [address] [address] Care Team Providers Care Package Car Driver Name Role Phone [facility] Primary Care Provider [phone] Reason for Visit * Reason Onset Date Comments Referral 06/16/2023 Results 06/16/2023 Encounter Details Date Type Department Care Team (Late st Contact Info) Description 06/16/2023 Telephone [facility] MEDICINE [address] [place] [address] [facility] [address] [place] [address] Referral; Results Social History Tobacco Use Types [...] Miscellaneous Notes * Telephone Encounter - Tawny Turner - 06/16/2023 10:23 AM EDT Tc from pt requesting if gastro referral can be sent to a different location as urgent . States [facility] available appt wont be till mid October. Pt informs is okay if its far distance like [place] for example . Pt is also requesting to speak with pcp regarding a surgery she had on 06/03/23 at [facility] . documented in this encounter Plan of Treatment Not on file documented as of this encounter Visit Diagnoses Not on filedocumented in this encounter Additional Health Concerns Assessment Noted Time PHQ-9 Depression Total Score: 0 11/24/19 9:40 AM EST documented as of this encounter Care Teams Package Car Driver Relationship Specialty Start Date End Date Rehana Flower FNP [address] [place] [phone] PCP - General Family Medicine 07/09/22 documented as of this encounter
--- OUTSIDE RECORDS SUMMARY | 2025-08-28 18:18 | XMS_ITS | Encounter Summary ---
Author Organization [email or web address] Address 75 [facility] 7 [place] [address] Care Team Providers Care Optometry Assistant Name Role Phone Mundo [facility] Primary Care Provider [phone] Encounter Details Date Type Department Care Team (Late st Contact Info) Description 06/25/2025 Orders Only [facility] ADULT DENTAL [address] [place] [address] Topete-MalikWinter khan, DDS [address] [place] [address] Social History Tobacco Use Types Packs/Day Years [...] documented as of this encounter Care Teams Optometry Assistant Relationship Specialty Start Date End Date Rehana Flower FNP [address] [place] [id number] PCP - General Family Medicine 07/09/22 documented as of this encounter
--- OUTSIDE RECORDS SUMMARY | 2025-08-28 18:18 | XMS_ITS | Encounter Summary ---
Author Organization [employer] Address 75 [facility] 7t [place] [address] Care Team Providers Care Shop Laborer Name Role Phone Mundo [facility] Primary Care Provider [phone] Encounter Details Date Type Department Care Team ([facility] st Contact Info) Description 12/06/2024 Orders [address] [facility] ADULT DENTAL [address] [place] [address] Topete-MalikWinter khan, DDS [address] [place] [address] Social History Tobacco Use Types Packs/Day Years [...] documented as of this encounter Care Teams Shop Laborer Relationship Specialty Start Date End Date Rehana Flower FNP [address] [place] [phone] PCP - General Family Medicine 07/09/22 documented as of this encounter
--- OUTSIDE RECORDS SUMMARY | 2025-08-28 18:18 | XMS_ITS | Clinical Summary ---
Author Organization [facility] Address [address] [place] [address] Phone Care Team Providers Care Journeyman Tool And Die Maker Name Role Phone Pcp, Unknown Primary Care Provider Unavailabl e Allergies Active Allergy Reactions Criticality Noted Date Comments Aspirin Other (See Comments) 03/10/2012 BOTHERS HER STOMACH Latex Rash 03/10/2012 Medications hydrochloroth iazide (HYDRODIURIL) 25 MG tablet HYDROCHLOROTHIAZIDE 25 MG TABLET; Dose: 25 MG; Form: Take 1 TABLET; Route: PO; Frequency: QD; Directions: Not available; Details: Duration: 90 day(s); Dispense: 90 Tablet(s); Taking; Status: Active; Source: MARKO MCLAUGHLIN M.D; Date: 10/03/2014 10/03/20 14 Active hydrocortison e 2.5 % Soln HYDROCORTISONE 2.5% 2.5% SOLUTION ; Dose: 1 APPLICATION; Form: Not available; Route: TOP; Frequency: BID; Directions: Not available; Details: Dispense: 1 Tube(s); Not Taking; Status: Active; Source: AZUCENA TAMEZ,N.P.; Date: 12/18/2014 12/18/19 15 Active guaiFENesin-c odeine (ROBITUSSIN AC) 100-10 mg/5 mL liquid Take 5 mL (10 mg of codeine total) by mouth 3 (three) times a day as needed for cough. 120 mL 0 12/16/19 16 Active Additional Information Patient not taking.Reported on 01/03/2016 labetalol (TRANDATE) 200 MG tablet Take 200 mg by mouth 2 (two) times a day. Active Active Problems Problem Noted Date Diagnosed Date Encounter for preconception consultation 016 Assessment & Plan (01/03/2016 3:58 PM EST): ARTIFICIAL INTELLIGENCE SPECIALIST to remove implant at next available visit She will discuss her daughter's recent dx of ciliary dyskinesia with OB at March (?IVF given this hx as well as h/o bicornuate uterus) Will start PNV and switch to labetolol Cough 12/16/2015 Assessment & Plan (12/16/2015 4:04 PM EST): Likely due to URI - trial of robitussin AC Headache 11/10/2013 Overview (01/05/2015): Headache History of miscarriage 08/11/2013 Overview (01/05/2015): Recurrent miscarriage Assessment & Plan (12/16/2015 4:04 PM EST): As above - referral to NURSING HOME ADMISSIONS DIRECTOR for h/o bicornuate uterus and fertility counseling Bicornuate uterus 11/22/2012 Overview (01/05/2015): Bicornuate uterus Assessment & Plan (12/16/2015 4:03 PM EST): FU with NURSING HOME ADMISSIONS DIRECTOR for fertility counseling and removal of nexplanon. Pre-eclampsia 10/31/2012 Overview (01/05/2015): Pre-eclampsia Assessment & Plan (12/16/2015 4:01 PM EST): Will aim to control BP in the setting of patient aiming to get again. Hypertensive disorder 10/31/2012 Overview (01/05/2015): HTN - Hypertension Assessment & Plan (01/03/2016 3:56 PM EST): She will switch to labetolol and FU with ARTIFICIAL INTELLIGENCE SPECIALIST at next visit Assessment & Plan (12/16/2015 4:02 PM EST): Change Lisinopril and HCTZ to HCTZ and Labetolol as patient will aim to get in the next few months - aim to repeat BP in next few weeks. Check K today. Immunizations Immunization Administration Dates Next Due DTaP, unspecified formulation 08/07/2009 [id number] FORMULATION 09/23/2009 Hepatitis A, Adult 06/10/2015 Hepatitis B Adult 06/10/2015 INFLUENZA, SPLIT VIRUS, TRIVALENT PF 12/14/2014, 08/11/2013,10/31/2012 Influenza Quadrivalent Preservative Free IM 11/2015 Influenza, Unspecified Formulation 09/24/2009 Tdap 08/07/2009 Typhoid, ViCPs 06/10/2015 Family History Medical History Relation Comments Diabetes Father Hypertension Father Breast cancer Maternal Aunt Cancer Mother NHL Diabetes Sister 1 Relation Status Comments Brother Alive Father (Age 48) Maternal Aunt Mother (Age 52) NHL Sister 1 Alive Sister 2 Alive Social History Tobacco Use Types Packs/Day Years Used Date Smoking Tobacco: Never Tobacco Cessation:Counseling Given: No Alcohol Use Standard Drinks/Week Comments No 0 (1 standard drink = 0.6 oz pur e alcohol) Education Answer Date Recorded Are you interested in more education? Not on maribel e 03/14/2023 Are you concerned about learning? Not on file 03/14/2023 No 03/14/2023 No 03/14/2023 Digital Access Answer Date Recorded No 04/10/2023 No 04/10/2023 No 04/10/2023 Reliable internet access at home? Not on file 04/10/2023 Device with a working camera? 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 Not on file Not on file Last Filed Vital Signs Vital Sign Reading Time Taken Comments Blood Pressure 122/78 06/18/2016 2:55 PM EDT Pulse 66 01/03/2016 1:08 PM EST Temperature 36.8 C (98.2 F) 01/03/2016 1:04 PM EST Respiratory Rate 16 02/28/2015 3:35 PM EDT Oxygen Saturation 97% 01/03/2016 1:08 PM EST Inhaled Oxygen Concentration - - Weight 90.7 kg (200 lb) 06/18/2016 2:55 PM EDT Height 175.3 cm (5' 9 ) 06/18/2016 2:55 PM EDT Body Mass Index 29.53 06/18/2016 2:55 PM EDT Plan of Treatment Health Maintenance Due Date Last Done Comments BLOOD PRESSURE 1985 DEPRESSION SCREENING 1998 POTASSIUM LEVEL 12/16/2016 12/16/2015, 01/14, 12/14/2014, Additional history exists PAP SMEAR 12/14/2017 12/14/2014, 10/15, 09/23/2009, Additional history exists INFLUENZA VACCINE (#1) 2025 , 08/14/2020, 09/02/2018, Additional history exists COVID-19 VACCINE ( season) 2025 01/26/2022, 05/19/2021, 04/28/2021 Adult Td,Tdap Booster 09/16/2031 09/16/2021, 009 HEPATITIS A VACCINES Aged Out 06/10/2015 No long er eligible based on patient's age to complete this topic SMOKING STATUS SCREENING (Once After 26 Yrs) Completed 05/22/2016 HEPATITIS C SCREENING Completed 06/18/2016, 016 HIV ONE-TIME SCREENING (18-65 YEARS) Completed 06/18/2016, 03/06/2009 HIB VACCINES Aged Out No longer eligi ble based on patient's age to complete this topic MENINGOCOCCAL VACCINES (ACWY) Aged Out No longer eligible based on patient's age to complete this topic MENINGOCOCCAL VACCINES (B) Aged Out N o longer eligible based on patient's age to complete this topic PNEUMOCOCCAL VACCINES (0-49 years) Aged Out No longer eligible based on patient's age to complete this topic Medical Devices Implanted Type Area Ocular Care Aide Device Identifier Shelf Expiration Date Model / Serial / Lot Nexplanon Control Description:Nexplanon implan table control device. Safe to 3T per 100Plus Procedures Procedure Name Priority Date/Time Associated Diagnosis Comments HEPATITIS C ANTIBODY, QUALITATIVE Routine 06/18/2016 3:50 PM EDT Female infertility POTASSIUM Routine 12/16/2015 2:15 PM EST Essential hypertension PAP TEST Routine 12/14/2014 12:00 AM EST from Last 3 Months or Most Recently Relevant to Health Maintenance Results * Hepatitis C antibody, qualitative (06/18/2016 3:50 PM EDT) HCV ANTIBODY Negative Negative [facility] DEPARTMENT OF PATHOLOGY Comment:Antibodies to HCV no t detected. Does not exclude the possibility of exposure to HCV. 06/18/2016 3:50 PM EDT 06/18/2016 5:35 PM EDT us Jaison Mckeon MD LAB BLOOD ORDERABLES Final Resu lt [facility] DEPARTMENT OF PATHOLOGY [address] [place] [id number] * Potassium (12/16/2015 2:15 PM EST) Potassium 4.1 3.4 - 5.0 mmol/L [facility] 12/16/2015 2:15 PM EST 12/16/2015 2:19 PM EST Comment:CHC SPECIMEN Narrative Resulting Agency Comment [facility], [address] [place] [address]. [facility], [address] [place] [address]. us Dionne Staton MD, MPH LAB BLOOD ORDERABLES Final Result [address] [address] * Pap Smear (12/14/2014 12:00 AM EST) 12/14/2014 Narrative [facility] - 01/09/2015 8:10 AM EST Accession Number: [id number] Report Status: Final Type: Cytology Cytology Report: [id number] [place] [address] NURSING HOME ADMISSIONS DIRECTOR Cytology Report Patient Name: VENITA VALENTINE : 1985 (Age: 29) Sex: F [place] [facility] [place] [address] Date of Collection: 12/14/2014 Date of Reported: 01/09/2015 08:10 Results to: Dionne Staton MD FINAL DIAGNOSIS A. CERVICAL, LIQUID BASED SPECIMEN: SPECIMEN ADEQUACY: Satisfactory for evaluation. INTERPRETATION: NEGATIVE FOR INTRAEPITHELIAL LESION OR MALIGNANCY. ADDITIONAL INFORMATION: This specimen was prescreened using the Virtustream Imaging System. Electronically Signed Out By: ELIAN Landaverde(ASCP) Cervical cytology is a screening test primarily for squamous cancers and precursors and has associated false-negative and false-positive results. New technologies such as liquid-based preparations may decrease but will not eliminate all false-negative results. Regular sampling and follow-up of unexplained clinical signs and symptoms are recommended to minimize false negative results. CLINICAL HISTORY Date of Last Menstrual Period: Contraceptive History: Hormonal SPECIMEN SOURCE A: CERVICAL, LIQUID BASED SPECIMEN Specimen: CERVICAL, LIQUID BASED SPECIMEN us Dionne Staton MD, MPH CYTOLOGY ORDERABLES Final Result [facility] [address] [place] [address], [facility] from Last 3 Months or Most Recently Relevant to Health Maintenance [place] [address] [place] [address] [place] [address] [place] [address] [place] [address] [facility] [place] [address] [place] [facility] [place] [address] Advance Directives For more information, please contact: [phone] (9AM - 5PM [facility], Wednesday-Wednesday) Documents on File Type Date Recorded Patient Countersinker Expl anation Advance Directive - Non Epic LMR 08/10/2009 12:00 AM Care Teams Journeyman Tool And Die Maker Relationship Specialty Start Date End Date Pcp, Unknown PCP - General 06/30/18 Additional Source Comments The information contained in this document represents components of the legal health record. It is not the complete legal health record.[facility]
--- OUTSIDE RECORDS SUMMARY | 2025-08-28 18:18 | XMS_ITS | Encounter Summary ---
Author Organization [facility] Address [address] [place] [address] Phone Care Team Providers Care Insulator Apprentice Name Role Phone Dionne Staton MD, MPH Primary Care Provider + [phone] Dionne Staton MD, MPH Unavailable [phone] Dionne Staton MD, MPH Unavailable [phone] Dionne Staton MD, MPH Unavailable [phone] Pcp, Unknown Primary Care Provider Unavailabl e Dionne Staton MD, MPH Unavailable [phone] Encounter Details Date Type Department Care Team (Late st Contact Info) Description 06/22/2016 Procedure Pass [facility] - MRI [address] [place] [address] Social History Tobacco Use Types Packs/Day Years [...] on filedocumented in this encounter Care Teams Insulator Apprentice Relationship Specialty Start Date End Date Dionne Staton MD, MPH [address] [facility] [place] [address] [email or web address] PCP - General 05/15/14 06/29/18 Pcp, Unknown PCP - General 06/30/18 Dionne Staton MD, MPH [address] [facility] [place] [address] [email or web address] Insurance Assigned Provider 09/21/1502/27 Dionne Staton MD, MPH [address] [facility] [place] [address] [email or web address] Partners Attributed Provider 01/19/16 3/12/02 Dionne Staton MD, MPH [address] [facility] [place] [address] [email or web address] Insurance Assigned Provider 03/19/1806/29 Dionne Staton MD, MPH [facility] [place] [address] [email or web address] Insurance Assigned Provider 03/19/18 documented as of this encounter Additional Source Comments The information contained in this document represents components of the legal health record. It is not the complete legal health record.[facility]
--- OUTSIDE RECORDS SUMMARY | 2025-08-28 18:18 | XMS_ITS | Encounter Summary ---
Author Organization [facility] Address [address] [place] [address] Phone Care Team Providers Care Taximeter Repairer Name Role Phone Dionne Staton MD, MPH Primary Care Provider + [phone] Dionne Staton MD, MPH Unavailable [phone] Dionne Staton MD, MPH Unavailable [phone] Dionne Staton MD, MPH Unavailable [phone] Pcp, Unknown Primary Care Provider Unavailabl e Dionne Staton MD, MPH Unavailable [phone] Encounter Details Date Type Department Care Team (Late st Contact Info) Description 11/24/2016 Procedure Pass [facility] [address] [place] [address] Social History Tobacco Use Types Packs/Day Years [...] on filedocumented in this encounter Care Teams Taximeter Repairer Relationship Specialty Start Date End Date Dionne Staton MD, MPH [address] [facility] [place] [address] [email or web address] PCP - General 05/15/14 06/29/18 Pcp, Unknown PCP - General 06/30/18 Dionne Staton MD, MPH [address] [facility] [place] [address] [email or web address] Insurance Assigned Provider 09/21/1502/27 Dionne Staton MD, MPH [address] [facility] [place] [address] [email or web address] Partners Attributed Provider 01/19/16 312/02 Dionne Staton MD, MPH [address] [facility] [place] [address] [email or web address] Insurance Assigned Provider 03/19/1806/29 Dionne Staton MD, MPH [facility] [place] [address] [email or web address] Insurance Assigned Provider 03/19/18 documented as of this encounter Additional Source Comments The information contained in this document represents components of the legal health record. It is not the complete legal health record.[facility]
--- OUTSIDE RECORDS SUMMARY | 2025-08-28 18:18 | XMS_ITS | Encounter Summary ---
Author Organization [facility] Address [address] [address] Care Team Providers Care Credit Risk Management Director Name Role Phone [facility] Primary Care Provider [phone] Reason for Visit * Reason Onset Date Comments Med Refill 05/06/2024 Encounter Details Date Type Department Care Team (Late st Contact Info) Description 05/06/2024 Refill [facility] [address] [place] [address] [facility] [address] [place] [address] Dyspepsia Social History Tobacco Use Types Packs/Day [...] documented as of this encounter Care Teams Credit Risk Management Director Relationship Specialty Start Date End Date Rehana Flower FNP [address] [place] [address] PCP - General Family Medicine 07/09/22 documented as of this encounter
== END 2025-08-28 16:28 | disposition home or self-care (01) ==
LOC: HO.HVS 15:36
PROVIDERS: PCP Registered Nurse; Visit Provider Surgery Vascular Surgery
DX: I83.12 Varicose veins of left lower extremity with inflammation (principal)
CPT/HCPCS: 99204

== ENCOUNTER 2025-10-02 10:31 | Outpatient (REF) | payer OTHER, MEDICAID, SELFPAY ==
--- NOTE | ~2025-10-02 | US_ITS ---
EXAMINATION: US LOWER EXTREMITY VENOUS (REFLUX EXAM), BILATERAL CLINICAL INFORMATION: Venous incompetence, I83.12 - Varicose veins of left lower extremity with inflammation COMPARISON: None. TECHNIQUE: Color flow triplex imaging and compression Doppler was performed to evaluate both the deep and the superficial systems bilaterally. To evaluate the superficial system, the examination was performed in the upright position. Color-flow Doppler ultrasound and compression ultrasound were utilized. In addition, maneuvers were utilized to demonstrate reflux. FINDINGS: 1. DEEP VENOUS ULTRASOUND OF THE RIGHT LOWER EXTREMITY: Common Femoral Vein: Compressible, normal respiratory variation and augmented flow. Femoral Vein: Compressible, normal color flow and augmentation. Popliteal Vein: Compressible, normal augmentation. Deep Reflux: There is no evidence of reflux in the deep system in either the common femoral vein, superficial femoral or the popliteal vein. 2. SUPERFICIAL ULTRASOUND WITH DOPPLER OF RIGHT LOWER EXTREMITY: GREAT SAPHENOUS VEIN: Saphenofemoral Junction: 0.6 cm; Reflux: 0 ms Proximal Thigh: 0.4 cm; Reflux: 0 ms Mid Thigh: 0.3 cm; Reflux: >3000 ms Distal Thigh: 0.4 cm; Reflux: >3000 ms At Knee: 0.3 cm; Reflux: 1500 ms Below Knee/Proximal Calf: 0.2 cm; Reflux: 0 ms Mid Calf: 0.2 cm; Reflux: 1000 ms Ankle/Distal Calf: 0.2 cm; Reflux: 0 ms Lateral accessory GREAT SAPHENOUS VEIN: Saphenofemoral Junction: 0.3 cm; Reflux: 0 ms Mid Thigh: 0.2 cm; Reflux: 0 ms SMALL SAPHENOUS VEIN: Drainage: Thigh extension Saphenopopliteal Junction: 0.2 cm; Reflux: 0 ms Mid calf: 0.2 cm; Reflux: 0 ms Distal: 0.3 cm; Reflux: 0 ms VEIN OF GIACOMINI: Size: 0.3 cm Reflux: 0 ms PERFORATORS: Location: Small saphenous vein, mid Size: 0.2 cm Reflux: 0 ms Location: Greater saphenous vein, proximal calf Size: 0.2 cm Reflux: 0 ms Location: Greater saphenous vein, proximal calf Size: 0.2 cm Reflux: 0 ms Location: Greater saphenous vein, mid calf Size: 0.3 cm Reflux: 0 ms VARICOSITIES > 3mm: Location: None Imaged 3. DEEP VENOUS ULTRASOUND OF THE LEFT LOWER EXTREMITY: Common Femoral Vein: Compressible, normal respiratory variation and augmented flow. Femoral Vein: Compressible, normal color flow and augmentation. Popliteal Vein: Compressible, normal augmentation. Deep Reflux: There is no evidence of reflux in the deep system in either the common femoral vein, superficial femoral or the popliteal vein. 4. SUPERFICIAL ULTRASOUND WITH DOPPLER OF LEFT LOWER EXTREMITY: GREAT SAPHENOUS VEIN: Saphenofemoral Junction: 0.7 cm; Reflux: 1800 ms Proximal Thigh: 0.6 cm; Reflux: 1000 ms Mid Thigh: 0.4 cm; Reflux: >2700 ms Distal Thigh: 0.5 cm; Reflux: >3150 ms At Knee: 0.5 cm; Reflux: 1300 ms Below Knee/Proximl calf: 0.4 cm; Reflux: >3200 ms Mid Calf: 0.2 cm; Reflux: 0 ms Distal Calf/Ankle: 0.2 cm; Reflux: 0 ms Lateral accessory GREAT SAPHENOUS VEIN: Saphenofemoral Junction: 0.3 cm; Reflux: 0 ms Mid Thigh: 0.2 cm; Reflux: 0 ms SMALL SAPHENOUS VEIN: Drainage: Popliteal vein Saphenopopliteal Junction: 0.2 cm; Reflux: 0 ms Mid calf: 0.2 cm; Reflux: 0 ms Distal calf: 0.2 cm; Reflux: 0 ms VEIN OF GIACOMINI: Size: NA Reflux: NA PERFORATORS: Location: Small saphenous vein, mid Size: 0.2 cm Reflux: 0 ms Location: Greater saphenous vein, mid thigh Size: 0.2 cm Reflux: 0 ms Location: Greater saphenous vein, distal thigh Size: 0.2 cm Reflux: 0 ms Location: Greater saphenous vein, mid calf Size: 0.5 cm Reflux: 0 ms VARICOSITIES > 3mm: Location: Small saphenous vein, mid Size: 0.3 cm Reflux: 0 ms Location: Great saphenous vein, proximal thigh Size: 0.3 cm Reflux: 0 ms Location: Great saphenous vein, proximal calf Size: 0.6 cm Reflux: 832 ms Location: Great saphenous vein, proximal calf Size: 0.3 cm Reflux: 1400 ms US/US venous duplex LE BI IMPRESSION: Right: Venous incompetence is demonstrated in the greater saphenous vein Left: Venous incompetence is demonstrated in the greater saphenous vein as well as varicose veins in the calf. Electronically signed by: Manny Rivas MD 10/02/2025 11:50 AM EST
== END 2025-10-02 10:32 | disposition home or self-care (01) ==
LOC: HO.US 10:31
PROVIDERS: PCP Registered Nurse; Visit Provider Surgery Vascular Surgery
DX: I83.12 Varicose veins of left lower extremity with inflammation (principal)
CPT/HCPCS: 93970

== ENCOUNTER → 2025-10-02 10:32 | Outpatient (BNV) | payer OTHER, MEDICAID, SELFPAY | PROVIDERS: PCP Registered Nurse; Visit Provider Radiology Diagnostic Radiology | DX: I83.11 Varicose veins of right lower extremity with inflammation (principal); I83.12 Varicose veins of left lower extremity with inflammation | CPT/HCPCS: 93970 ==

== ENCOUNTER 2025-11-13 14:59 | Outpatient (AMB) | payer OTHER, MEDICAID, SELFPAY ==
[2025-11-13 15:02] VITALS: BMI 28.1
--- NOTE | 2025-11-13 15:02 | MHC.OFFVIS ---
Vital Signs 11/13/25 15:02 Height 5 ft 9 in Weight 190 lb BMI 28.1 Intake Visit Reasons: TURNING MACHINE SET UP OPERATOR-numbness, tingling weakness/ EMG done 07/13/25 Intake Note: Rosa is a 40 year old right hand dominant female who presents today as a new patient for evaluation of bilateral hand numbness & tingling. Her right is worse. Patient states her symptoms started about 3 years ago and has worsen. 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 She has tried using a brace with little to no help. Denies injury, O.T or hand injections. EMG done : Impression 06/26/25: Mild bilateral median neuropathy across carpal tunnel Allergies adhesive tape Allergy (Intermediate, Verified 11/13/25 15:12) Rash latex Allergy (Intermediate, Verified 11/13/25 15:12) Rash HPI HPI TURNING MACHINE SET UP OPERATOR-numbness, tingling weakness/ EMG done 07/13/25: Details: Rosa is a 40 year old right hand dominant woman who presents for a NCS review of her bilateral hand numbness. She complains of numbness in the median nerve distribution bilaterally, R>L. Symptoms are constant, but worse at night or with activities. 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 Review of Systems Const All systems reviewed & are unremarkable except as noted in HPI and below Physical Exam Vital Signs: BMI result Body Mass Index 28.1 Const General: cooperative, healthy appearing and no acute distress Orientation/consciousness: patient oriented x3 HEENT Head: Yes normocephalic and Yes atraumatic Eyes EOM: EOMs intact bilaterally Resp Effort & Inspection: normal respiratory effort and able to speak in complete sentences Cardio Jugular venous distension: no JVD Skin General skin exam: turgor normal Rashes: no rashes Neuro General: patient oriented x3 Extrem Other: Evaluation of Right Upper Extremity: The patient is alert, oriented, and in no acute distress Neuro: Decreased subjective sensation in the median nerve distribution. Normal sensation in the ulnar nerve distirbution No intrinsic or thenar wasting. Good APB muscle belly firing Vascular: Cap refill brisk ROM: She can make a fist and extend all her digits Skin: No lacerations or abrasions. General: No Ecchymosis. No Erythema or evidence of infection. Nerve Conduction Study: Impression: Mild bilateral median neuropathy across carpal tunnel Dictated By: Dennis Anton MD 06/27/25 Psych Appearance: grossly normal Affect: normal affect Attitude: cooperative Assessment & Plan Assessment & Plan (1) Carpal tunnel syndrome of right wrist: Code(s): G56.01 - Carpal tunnel syndrome, right upper limb Category: Medical (2) Carpal tunnel syndrome of left wrist: Code(s): G56.02 - Carpal tunnel syndrome, left upper limb Category: Medical Plan Assessment & Plan: 1. Right carpal tunnel syndrome, mild Decreased subjective sensation today in clinic I educated her about this condition I discussed operative and non-operative treatment options The patient would like to proceed with surgery, beginning with the right hand The risks and benefits of operative treatment were discussed with the patient and the patient wishes to proceed with surgery. These risks include, but are not limited to risk of damage to blood vessels, nerves, tendons, infection, recurrence, incomplete relief of preoperative symptoms, persistent pain, possible need for further surgery and the risks associated with regional blocks and anesthesia. The plan is to take the patient to the operating room sometime in the next few weeks for the following procedures: 1. Right carpal tunnel release, under local All of the preoperative paperwork including the consent was reviewed today. All the patient's questions were answered. The patient understands that they will be contacted by our spares scheduler soon to schedule this procedure She denies Diabetes, blood thinners, asthma, heart, lung, kidney issues 2. Left carpal tunnel syndrome, mild Symptoms intermittent, but daily, worse at night We will discuss treatment options when she has recovered from her right side surgery Scribed for Araseli Shepherd MD by Roman Aguirre, medical records manager, on 11/13/25 at 3:20 PM, EST. Coding Level of Care Code New Pt Level 4 (92684) Diagnoses Carpal tunnel syndrome of right wrist G56.01 Carpal tunnel syndrome of left wrist G56.02
--- OUTSIDE RECORDS SUMMARY | 2025-11-13 18:33 | XMS_ITS | Encounter Summary ---
Author Organization [facility] Address [address] [place] [address] Phone Care Team Providers Care Nursery School Attendant Name Role Phone Dionne Staton MD, MPH Primary Care Provider + [phone] Dionne Staton MD, MPH Unavailable [phone] Dionne Staton MD, MPH Unavailable [phone] Dionne Staton MD, MPH Unavailable [phone] Pcp, Unknown Primary Care Provider Unavailabl e Dionne Staton MD, MPH Unavailable [phone] Encounter Details Date Type Department Care Team (Late st Contact Info) Description 11/24/2016 Procedure Pass [facility] PERIOPERATIVE DEPT [address] [place] [id number] Social History Tobacco Use Types Packs/Day Years [...] on filedocumented in this encounter Care Teams Nursery School Attendant Relationship Specialty Start Date End Date Dionne Staton MD, MPH [address] [place] [address] [email or web address] PCP - General 05/15/14 06/29/18 Pcp, Unknown PCP - General 06/30/18 Dionne Staton MD, MPH [address] [place] [address] [email or web address] Insurance Assigned Provider 09/21/1502/27 Dionne Staton MD, MPH [address] [facility] [place] [address] [email or web address] [employer] Attributed Provider 01/19/16 312/02 Dionne Staton MD, MPH [facility] [place] [address] [email or web address] Insurance Assigned Provider 03/19/1806/29 Dionne Staton MD, MPH [address] [facility] [place] [address] [email or web address] Insurance Assigned Provider 03/19/18 documented as of this encounter Additional Source Comments The information contained in this document represents components of the legal health record. It is not the complete legal health record.[facility]
--- OUTSIDE RECORDS SUMMARY | 2025-11-13 18:33 | XMS_ITS | Encounter Summary ---
Author Organization [facility] Address [address] [place] [address] Phone Care Team Providers Care Golf Player Assistant Name Role Phone Dionne Staton MD, MPH Primary Care Provider + [phone] Dionne Staton MD, MPH Unavailable [phone] Dionne Staton MD, MPH Unavailable [phone] Dionne Staton MD, MPH Unavailable [phone] Pcp, Unknown Primary Care Provider Unavailabl e Dionne Staton MD, MPH Unavailable [phone] Encounter Details Date Type Department Care Team (Late st Contact Info) Description 06/22/2016 Procedure Pass [facility] [address] [place] [address] Social History Tobacco Use Types Packs/Day Years [...] on filedocumented in this encounter Care Teams Golf Player Assistant Relationship Specialty Start Date End Date Dionne Staton MD, MPH [address] [facility] [place] [address] [email or web address] PCP - General 05/15/14 06/29/18 Pcp, Unknown PCP - General 06/30/18 Dionne Staton MD, MPH [address] [place] [address] [email or web address] Insurance Assigned Provider 09/21/1502/27 Dionne Staton MD, MPH [address] [place] [address] [email or web address] Partners Attributed Provider 01/19/16 3/12/02 Dionne Staton MD, MPH [facility] [place] [address] [email or web address] Insurance Assigned Provider 03/19/1806/29 Dionne Staton MD, MPH [place] [address] [email or web address] Insurance Assigned Provider 03/19/18 documented as of this encounter Additional Source Comments The information contained in this document represents components of the legal health record. It is not the complete legal health record.[facility]
--- OUTSIDE RECORDS SUMMARY | 2025-11-13 18:33 | XMS_ITS | Encounter Summary ---
Author Organization [employer] Address [address] [place] [address] Care Team Providers Care Residential Solar Consultant Name Role Phone Mundo [facility] Primary Care Provider [phone] Encounter Details Date Type Department Care Team ([facility] st Contact Info) Description 08/07/2025 Orders Only [facility] ADULT DENTAL [address] [place] [address] Topete-MalikWinter khan, DDS [address] [place] [address] Social History Tobacco Use Types Packs/Day Years [...] documented as of this encounter Care Teams Residential Solar Consultant Relationship Specialty Start Date End Date Rehana Flower FNP [address] [place] [address] PCP - General Family Medicine 07/09/22 documented as of this encounter
--- OUTSIDE RECORDS SUMMARY | 2025-11-13 18:33 | XMS_ITS | Encounter Summary ---
Author Organization [employer] Address [address] [facility] [address]t [place] [address] Care Team Providers Care Thermo Cementing Folder Operator Name Role Phone Mundo [facility] Primary Care Provider [phone] Encounter Details Date Type Department Care Team ([facility] st Contact Info) Description 10/02/2025 Results Follow-Up [facility] MEDICINE [address] [place] [address] Mary Springer RN VASC Lower Extremity Venous Duplex Bilateral Social History Tobacco Use Types Packs/Day Years [...] documented as of this encounter Care Teams Thermo Cementing Folder Operator Relationship Specialty Start Date End Date Rehana Flower FNP [address] [place] [phone] PCP - General Family Medicine 07/09/22 documented as of this encounter
--- OUTSIDE RECORDS SUMMARY | 2025-11-13 18:33 | XMS_ITS | Encounter Summary ---
Author Organization [employer] Address [address] [place] [address] [address], [place] [address] Care Team Providers Care Admissions Representative Name Role Phone Mundo Rehana [facility] Primary Care Provider [phone] Encounter Details Date Type Department Care Team (Latest Contact Info) Description 03/23/2022 Abstract [facility] CONVERSIONS Dental, Provider, DDS Social [...] on filedocumented in this encounter Care Teams Admissions Representative Relationship Specialty Start Date End Date Rehana Flower GUEST RELATIONS EXECUTIVE [address] [place] [id number] PCP - General Family Medicine 07/09/22 documented as of this encounter
--- OUTSIDE RECORDS SUMMARY | 2025-11-13 18:33 | XMS_ITS | Clinical Summary ---
Author Organization [employer] Address [address] [facility] 7 [place] [address] Care Team Providers Care Master Technician Name Role Phone Rehana Flower [facility] Primary Care Provider [phone] Allergies Active Allergy Reactions Criticality Noted Date [...] next 4 days. 6 tablet 5 Active azithromycin (Zithromax) 250 MG tablet Take (2) tabs 1st day; take (1) tab next 4 days. 6 tablet 10/30/2025 1:52 PM EST 5 Active Active Problems Problem Noted Date Diagnosed Date PTSD (post-traumatic stress disorder) 05/21/2025 YANIQUE (generalized anxiety disorder) 05/21/2025 Gallbladder mass 07/08/2023 Overview (07/08/2023): S/[place] laparoscopic cholecyst[place] with Dr. Gonsalves [place] [facility] [place]. 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 Cystic duct margin is free of dysplasia. Assessment & Plan (07/08/2023 5:25 AM EDT): Follow up as scheduled with surgical oncology Medullary sponge kidney 06/28/2023 Overview (07/08/2023): Saw urology at [facility] 05/12/23 for possible medullary sponge kidney with multiple bilateral non-obstructing renal stones. Per visit note plan for 24 hour urine collection and follow up in 2 months. Healthcare maintenance 06/28/2023 Overview (06/28/2023): Mammo: Pap: S/p hysterectomy (bleeding) no cervix. [facility]. C-scope: BMD: HCV Screen: HIV Screen: [...] Encounters Date Type Department Care Team Description 10/29/2025 Orders Only [facility] ADULT DENTAL [address] [place] [address] Winter Guerin DDS 10/02/2025 Results Follow-Up [facility] MEDICINE [address] [place] [address] Mary Springer, RN [facility] Lower Extremity Venous Duplex Bilateral 09/17/2025 Orders Only [facility] ADULT DENTAL [address] [place] [address] Winter Guerin DDS from Last 3 Months Immunizations Immunization Administration Dates Next Due DTaP, Unspecified 08/07/2009 Hep A, Adult 06/10/2015 Hep B, adult 09/16/2021,06/10/2015 Influenza Injectable Quadriv alant Preservative Free IIV4 MDCK 08/14/2020 Influenza injectable quadriv alent preservative free 09/16/2021,12/16/2015 Influenza, Unspecified 09/24/2009 Influenza, injectable, quadr ivalent, preservative free, pediatric 09/23/2009 Influenza, seasonal, injecta ble, preservative free 10/19/2024,09/02/2018,08/11/2017,2014,08/11/2013,10/31/2012 Novel [id number], all formulations 09/23/2009 Pfizer Covid-19 Vaccine 12+ [...] 07/18 Dental X-Ray: Full Mouth 01/22/2025 01/21/2022, 12/2021 COVID-19 Vaccine ( season) 2025 01/26/2022, 01/26/2022, 05/19/2021, Additional history exists Influenza Vaccine (#1) 2025 , 09/16/2021, 08/14/2020, Additional history exists SDOH Screening 05/11/2026 05/11/2025 Alcohol/Substance Use Screening 05/21/2026 05/21/2025 Depression Screening 05/21/2026 05/21/2025, 06/28/20 23 Tobacco Screening 05/22/2026 05/22/2025 Diabetes: Hemoglobin A1C [...] Procedure Name Priority Date/Time Associated Diagnosis Comments [facility] LOWER EXTREMITY VENOUS DUPLEX BILATERAL Routine 10/02/2025 10:58 AM EST HEMOGLOBIN A1C Routine 05/28/2025 9:13 AM EDT [...] Recently Relevant to Health Maintenance Results * VASC US Lower Extremity Venous Duplex Bilateral (10/02/2025 10:58 AM EST) 10/02/2025 10:5 8 AM EST [facility] IMAGING - 10/02/2025 11:53 AM EST [address] [address] Ultrasound Report Signed Patient: Rosa Valentine MR#: [id number] : 1985 Acct:[id number] Age/Sex: 40 / F ADM Date: 10/02/25 Loc: . Attending Dr: Fausto Mendoza MD Ordering Physician: Fausto Mendoza MD Date of Service: 10/02/25 Procedure(s): US venous duplex LE BI Accession Number(s): [id number] cc: Fausto Mendoza MD; [facility] Reason for Exam: I83.12 - Varicose veins of left lower extremity with inflammation EXAMINATION: US LOWER EXTREMITY VENOUS (REFLUX EXAM), BILATERAL CLINICAL INFORMATION: Venous incompetence, I83.12 - Varicose veins of left lower extremity with inflammation COMPARISON: None. TECHNIQUE: Color flow triplex imaging and compression Doppler was performed to evaluate both the deep and the superficial systems bilaterally. To evaluate the superficial system, the examination was performed in the upright position. Color-flow Doppler ultrasound and compression ultrasound were utilized. In addition, maneuvers were utilized to demonstrate reflux. FINDINGS: 1. DEEP VENOUS ULTRASOUND OF THE RIGHT LOWER EXTREMITY: Common Femoral Vein: Compressible, normal respiratory variation and augmented flow. Femoral Vein: Compressible, normal color flow and augmentation. Popliteal Vein: Compressible, normal augmentation. Deep Reflux: There is no evidence of reflux in the deep system in either the common femoral vein, superficial femoral or the popliteal vein. 2. SUPERFICIAL ULTRASOUND WITH DOPPLER OF RIGHT LOWER EXTREMITY: GREAT SAPHENOUS VEIN: Saphenofemoral Junction: 0.6 cm; Reflux: 0 ms Proximal Thigh: 0.4 cm; Reflux: 0 ms Mid Thigh: 0.3 cm; Reflux: >3000 ms Distal Thigh: 0.4 cm; Reflux: >3000 ms At Knee: 0.3 cm; Reflux: 1500 ms Below Knee/Proximal Calf: 0.2 cm; Reflux: 0 ms Mid Calf: 0.2 cm; Reflux: 1000 ms Ankle/Distal Calf: 0.2 cm; Reflux: 0 ms Lateral accessory GREAT SAPHENOUS VEIN: Saphenofemoral Junction: 0.3 cm; Reflux: 0 ms Mid Thigh: 0.2 cm; Reflux: 0 ms SMALL SAPHENOUS VEIN: Drainage: Thigh extension Saphenopopliteal Junction: 0.2 cm; Reflux: 0 ms Mid calf: 0.2 cm; Reflux: 0 ms Distal: 0.3 cm; Reflux: 0 ms VEIN OF GIACOMINI: Size: 0.3 cm Reflux: 0 ms PERFORATORS: Location: Small saphenous vein, mid Size: 0.2 cm Reflux: 0 ms Location: Greater saphenous vein, proximal calf Size: 0.2 cm Reflux: 0 ms Location: Greater saphenous vein, proximal calf Size: 0.2 cm Reflux: 0 ms Location: Greater saphenous vein, mid calf Size: 0.3 cm Reflux: 0 ms VARICOSITIES > 3mm: Location: None Imaged 3. DEEP VENOUS ULTRASOUND OF THE LEFT LOWER EXTREMITY: Common Femoral Vein: Compressible, normal respiratory variation and augmented flow. Femoral Vein: Compressible, normal color flow and augmentation. Popliteal Vein: Compressible, normal augmentation. Deep Reflux: There is no evidence of reflux in the deep system in either the common femoral vein, superficial femoral or the popliteal vein. 4. SUPERFICIAL ULTRASOUND WITH DOPPLER OF LEFT LOWER EXTREMITY: GREAT SAPHENOUS VEIN: Saphenofemoral Junction: 0.7 cm; Reflux: 1800 ms Proximal Thigh: 0.6 cm; Reflux: 1000 ms Mid Thigh: 0.4 cm; Reflux: >2700 ms Distal Thigh: 0.5 cm; Reflux: >3150 ms At Knee: 0.5 cm; Reflux: 1300 ms Below Knee/Proximl calf: 0.4 cm; Reflux: >3200 ms Mid Calf: 0.2 cm; Reflux: 0 ms Distal Calf/Ankle: 0.2 cm; Reflux: 0 ms Lateral accessory GREAT SAPHENOUS VEIN: Saphenofemoral Junction: 0.3 cm; Reflux: 0 ms Mid Thigh: 0.2 cm; Reflux: 0 ms SMALL SAPHENOUS VEIN: Drainage: Popliteal vein Saphenopopliteal Junction: 0.2 cm; Reflux: 0 ms Mid calf: 0.2 cm; Reflux: 0 ms Distal calf: 0.2 cm; Reflux: 0 ms VEIN OF GIACOMINI: Size: NA Reflux: NA PERFORATORS: Location: Small saphenous vein, mid Size: 0.2 cm Reflux: 0 ms Location: Greater saphenous vein, mid thigh Size: 0.2 cm Reflux: 0 ms Location: Greater saphenous vein, distal thigh Size: 0.2 cm Reflux: 0 ms Location: Greater saphenous vein, mid calf Size: 0.5 cm Reflux: 0 ms VARICOSITIES > 3mm: Location: Small saphenous vein, mid Size: 0.3 cm Reflux: 0 ms Location: Great saphenous vein, proximal thigh Size: 0.3 cm Reflux: 0 ms Location: Great saphenous vein, proximal calf Size: 0.6 cm Reflux: 832 ms Location: Great saphenous vein, proximal calf Size: 0.3 cm Reflux: 1400 ms US/US venous duplex LE BI IMPRESSION: Right: Venous incompetence is demonstrated in the greater saphenous vein Left: Venous incompetence is demonstrated in the greater saphenous vein as well as varicose veins in the calf. Electronically signed by: Manny Rivas MD 10/02/2025 11:50 AM EST Dictated By: Manny Rivas MD Signed By: <Electronically signed by Manny Rivas MD in OV> 10/02/25 1150 DD/ 1058 TD/TT: 10/02/25 1126 Power Transformer Repair Supervisor: Procedure Note Donotuseinterpreter, Image - 10/02/[address] [address] Ultrasound Report Signed Patient: Rosa Valentine DMR#: [id number] : 1985Acct:[id number] Age/Sex: 40 / FADM Date: 10/02/25 Loc: HO.US Attending Dr: Fausto Mendoza MD Ordering Physician: Fausto Mendoza MD Date of Service: 10/02/25 Procedure(s): US venous duplex LE BI Accession Number(s): [id number] cc: Fausto Mendoza MD; [facility] Reason for Exam: I83.12 - Varicose veins of left lower extremity withinflammation EXAMINATION: US LOWER EXTREMITY VENOUS (REFLUX EXAM), BILATERAL CLINICAL INFORMATION: Venous incompetence, I83.12 - Varicose veins of left lower extremity with inflammation COMPARISON: None. TECHNIQUE: Color flow triplex imaging and compression Doppler was performed to evaluate both the deep and the superficial systems bilaterally. To evaluate the superficial system, the examination was performed in the upright position. Color-flow Doppler ultrasound and compression ultrasound were utilized. In addition, maneuvers were utilized to demonstrate reflux. FINDINGS: 1. DEEP VENOUS ULTRASOUND OF THE RIGHT LOWER EXTREMITY: Common Femoral Vein: Compressible, normal respiratory variation and augmented flow. Femoral Vein: Compressible, normal color flow and augmentation. Popliteal Vein: Compressible, normal augmentation. Deep Reflux: There is no evidence of reflux in the deep system in either the common femoral vein, superficial femoral or the popliteal vein. 2. SUPERFICIAL ULTRASOUND WITH DOPPLER OF RIGHT LOWER EXTREMITY: GREAT SAPHENOUS VEIN: Saphenofemoral Junction: 0.6 cm; Reflux: 0 ms Proximal Thigh: 0.4 cm; Reflux: 0 ms Mid Thigh: 0.3 cm; Reflux: >3000 ms Distal Thigh: 0.4 cm; Reflux: >3000 ms At Knee: 0.3 cm; Reflux: 1500 ms Below Knee/Proximal Calf: 0.2 cm; Reflux: 0 ms Mid Calf: 0.2 cm; Reflux: 1000 ms Ankle/Distal Calf: 0.2 cm; Reflux: 0 ms Lateral accessory GREAT SAPHENOUS VEIN: Saphenofemoral Junction: 0.3 cm; Reflux: 0 ms Mid Thigh: 0.2 cm; Reflux: 0 ms SMALL SAPHENOUS VEIN: Drainage: Thigh extension Saphenopopliteal Junction: 0.2 cm; Reflux: 0 ms Mid calf: 0.2 cm; Reflux: 0 ms Distal: 0.3 cm; Reflux: 0 ms VEIN OF GIACOMINI: Size: 0.3 cm Reflux: 0 ms PERFORATORS: Location: Small saphenous vein, mid Size: 0.2 cm Reflux: 0 ms Location: Greater saphenous vein, proximal calf Size: 0.2 cm Reflux: 0 ms Location: Greater saphenous vein, proximal calf Size: 0.2 cm Reflux: 0 ms Location: Greater saphenous vein, mid calf Size: 0.3 cm Reflux: 0 ms VARICOSITIES > 3mm: Location: None Imaged 3. DEEP VENOUS ULTRASOUND OF THE LEFT LOWER EXTREMITY: Common Femoral Vein: Compressible, normal respiratory variation and augmented flow. Femoral Vein: Compressible, normal color flow and augmentation. Popliteal Vein: Compressible, normal augmentation. Deep Reflux: There is no evidence of reflux in the deep system in either the common femoral vein, superficial femoral or the popliteal vein. 4. SUPERFICIAL ULTRASOUND WITH DOPPLER OF LEFT LOWER EXTREMITY: GREAT SAPHENOUS VEIN: Saphenofemoral Junction: 0.7 cm; Reflux: 1800 ms Proximal Thigh: 0.6 cm; Reflux: 1000 ms Mid Thigh: 0.4 cm; Reflux: >2700 ms Distal Thigh: 0.5 cm; Reflux: >3150 ms At Knee: 0.5 cm; Reflux: 1300 ms Below Knee/Proximl calf: 0.4 cm; Reflux: >3200 ms Mid Calf: 0.2 cm; Reflux: 0 ms Distal Calf/Ankle: 0.2 cm; Reflux: 0 ms Lateral accessory GREAT SAPHENOUS VEIN: Saphenofemoral Junction: 0.3 cm; Reflux: 0 ms Mid Thigh: 0.2 cm; Reflux: 0 ms SMALL SAPHENOUS VEIN: Drainage: Popliteal vein Saphenopopliteal Junction: 0.2 cm; Reflux: 0 ms Mid calf: 0.2 cm; Reflux: 0 ms Distal calf: 0.2 cm; Reflux: 0 ms VEIN OF GIACOMINI: Size: NA Reflux: NA PERFORATORS: Location: Small saphenous vein, mid Size: 0.2 cm Reflux: 0 ms Location: Greater saphenous vein, mid thigh Size: 0.2 cm Reflux: 0 ms Location: Greater saphenous vein, distal thigh Size: 0.2 cm Reflux: 0 ms Location: Greater saphenous vein, mid calf Size: 0.5 cm Reflux: 0 ms VARICOSITIES > 3mm: Location: Small saphenous vein, mid Size: 0.3 cm Reflux: 0 ms Location: Great saphenous vein, proximal thigh Size: 0.3 cm Reflux: 0 ms Location: Great saphenous vein, proximal calf Size: 0.6 cm Reflux: 832 ms Location: Great saphenous vein, proximal calf Size: 0.3 cm Reflux: 1400 ms US/US venous duplex LE BI IMPRESSION: Right: Venous incompetence is demonstrated in the greater saphenous vein Left: Venous incompetence is demonstrated in the greater saphenous vein as well as varicose veins in the calf. Electronically signed by: Manny Rivas MD 10/02/2025 11:50 AM EST Dictated By: Manny Rivas MD Signed By: <Electronically signed by Manny Rivas MD in [place]> 10/02/25 1150 DD/ 1058 TD/TT: 10/02/25 1126 Power Transformer Repair Supervisor: [facility] External Provider CV VASC ULAR PROCEDURES Final Result Performing Organization Address [facility]/ZIP Co de Phone Number [facility] [address] [place] [address] [phone] * Hemoglobin A1c (05/28/2025 9:13 AM EDT) Hemoglobin A1c 6.0 <6.0 % [facility] Comment:Hemoglobin A1C Refer ence Range Adults: 4.8 - 6.0 % Non diabetic: < 6.0 % Goal: < 7.0 %Additional Action Suggested: > 8.0 %Note: Hemoglobin A1c results are invalid for patients with abnormal amounts of HbF. Blood transfusions may impact the HbA1c concentration in the patient sample. Estimated Average Glucose 126 mg/dL [facility] Comment:eAG = Estimated ave rage glucose which is %A1C expressed asaverage glucose, using the formula of the [id number] Glucose study (ADAG), Diabetes Care, Vol.31,#8,Jun. 2007 Blood Venous blood specimen / Unknown 05/28/2025 9:13 AM EDT 05/28/2025 11:29 AM EDT [facility] LAB BLOOD ORDERABLES Final Re sult Performing Organization Address City/[facility]/ZIP Co de Phone Number [facility] [address] [place] [phone] * (ABNORMAL) Lipid Panel, Standard (05/28/2025 9:13 AM EDT) Triglycerides 223(H) <150 mg/dL [facility] Comment:Desirable Triglyceri de: less than 150 mg/dLBorderline High Triglyceride 150-199 mg/dLHigh Triglyceride: 200-499 mg/dLVery High Triglyceride: greater than or equal to 5OO mg/dL Cholesterol 168 <200 mg/dL [facility] Comment:Desirable Cholestero l: less than 200 mg/dLBorderline High Cholesterol: 200-239 mg/dLHigh Cholesterol: greater than 239 mg/dL LDL Cholesterol Calculated 94 <100 mg/dL [facility] Comment:Desirable LDL: less than 100 mg/dLNear Optimal/Above Optimal LDL: 110- 129 mg/dLBorderline High LDL: 130-159 mg/dLHigh LDL: 160-189 mg/dLVery High LDL: greater than or equal to 190 mg/dL HDL Cholesterol 30(L) >40 mg/dL [facility] Comment:Desirable HDL: great er than 40 mg/dL Note: This HDL assay may give artificially low results in patients with liver disease. Blood Venous blood specimen / Unknown 05/28/2025 9:13 AM EDT 05/28/2025 11:32 AM EDT [facility] LAB BLOOD ORDERABLES Final Re sult [facility] [address] [place] [address] [phone] * Hepatitis C Antibody with Reflex to HCV, RNA, Quantitative, Real-Time PCR (11/24/2022 11:21 AM EST) Hepatitis C Antibody NON-REACT HAKEEM NON-REACT HAKEEM [employer] Index <0.02 <1.00 [employer] Comment: HCV antibody was non-reactive. There is no laboratory evidence of HCV infection. In most cases, no further action is required. However, if recent HCV exposure is suspected, a test for HCV RNA (test code 92538) is suggested. For additional information please refer to http://education.Scirra/faq/ZEB72q9 (This link is being provided for informational/ educational purposes only.) Blood Venous blood specimen / Unknown 11/24/2022 11:21 AM EST 11/24/2022 11:22 AM EST Narrative [facility] - 11/25/2022 11:05 AM EST FASTING:YES FASTING: YES [facility] LAB BLOOD ORDERABLES Final Re sult Performing Organization Address City/[facility]/ZIP Co de Phone Number [facility] [address] [place] [address], [place] [address] [email or web address] [place] [employer] [address] [facility], ([address]) [place] [address] * HIV-1/2 Antigen and Antibodies, Fourth Generation, with Reflexes (11/24/2022 11:21 AM EST) Pathologist [facility] HIV Antigen/Antibody, 4th Generation NON-REAC TIVE NON-REAC TIVE [email or web address] [place] [employer] Comment: HIV-1 antigen and HIV-1/HIV-2 antibodies [...] purpose. For additional information please refer to http://education.StockStreams.[facility]/faq/RBW802 (This link is being provided for informational/ educational purposes only.) The performance of this assay has not been clinically validated in patients less than 2 years old. Blood Venous blood specimen / Unknown 11/24/2022 11:21 AM EST 11/24/2022 11:22 AM EST Narrative [facility] - 11/25/2022 11:05 AM EST FASTING:YES FASTING: YES [facility] LAB BLOOD ORDERABLES Final Re sult [address], [place] [address] [email or web address] [place] [facility] [address], ([address]) [place] [address] from Last 3 Months or Most Recently Relevant to Health Maintenance Insurance [address] [place] [address] [facility] , [address] [place] [address] [address] [place], [place] DENTAL - [place]SN PARTIAL (MEDICAID) [address] [place] [address] Care Teams Master Technician Relationship Specialty Start Date End Date Rehana Flower FNP [address] [place] [phone] PCP - General Family Medicine 07/09/22
--- OUTSIDE RECORDS SUMMARY | 2025-11-13 18:33 | XMS_ITS | Encounter Summary ---
Author Organization [employer] Address [address] [facility] 7 [place] [address] Care Team Providers Care Lab Support Technician Name Role Phone [facility] Primary Care Provider [phone] Encounter Details Date Type Department Care Team (Late st Contact Info) Description 06/25/2025 Orders Only [facility] ADULT DENTAL [address] [place] [address] Topete-MalikWinter khan, DDS [address] [place] [address] Social History Tobacco Use Types Packs/Day Years [...] documented as of this encounter Care Teams Lab Support Technician Relationship Specialty Start Date End Date Rehana Flower FNP [address] [place] [phone] PCP - General Family Medicine 07/09/22 documented as of this encounter
--- OUTSIDE RECORDS SUMMARY | 2025-11-13 18:33 | XMS_ITS | Clinical Summary ---
Author Organization [facility] Address [address] [place] [address] Care Team Providers Care Pocket Operator Name Role Phone Swetha Clarke MD Unavailable [phone] Pushpa Tidwell NP Unavailable [phone] Sylvain Mccollum DO Unavailable [phone] Brandon Woods MD Unavailable Paige Mary MD Unavailable [phone] Bairon Martinez MD Unavailable Laura Flynn PROJECT COACH Unavailable [phone] Lenka Mock NP Unavailable [phone] Tenisha Samuels DO Unavailable [phone] Allergies Active Allergy Reactions Criticality Noted Date Comments Latex Rash Level of certainty: Very Certain Medications ferrous sulfate 325 (65 FE) MG tablet 1 tablet(s) by mouth twice a day every other day 0 Active omeprazole (PriLOSEC) [address] capsule 1 capsule(s) by mouth once a day 30 capsule 3 0 Active ibuprofen (MOTRIN) 600 MG tablet 1 Tablet(s) by mouth every six (6) hours as needed for pain take with food. 50 tablet 1 0 Active acetaminophen (TYLENOL) 500 MG tablet 1-2 tablet(s) by mouth every six (6) hours as needed for pain do not exceed 4000mg in 24 hours 60 tablet 1 0 Active ferrous sulfate (IRON) 325 (65 FE) MG tablet 1 tablet(s) by mouth once a day 90 tablet 0 1 Active losartan (COZAAR) 50 MG tablet 1 tablet(s) by mouth once a day 90 tablet 11 1 Active amLODIPine (NORVASC) 10 MG tablet 1 tablet(s) by mouth once a day 90 tablet 6 9 Active meclizine (ANTIVERT) 25 mg tablet 1 tablet(s) by mouth 2-3 times daily 30 tablet 1 0 Active docusate sodium (COLACE) 100 MG capsule 1 Capsule(s) by mouth once or twice a day as needed for constipation 60 capsule 3 0 Active docusate sodium (COLACE) 100 MG capsule 1 capsule(s) by mouth twice a day as needed for constipation May increase to 3x a day if needed 0 Active Immunizations Immunization Administration Dates Next Due Hepatitis B 03/06/2021,01/23/2021 Influenza Vaccine - STANDARD - PF (FLUZONE/FLUARIX/FLULAVAL/AFLURIA) 09/02/2018,08/11/2017 Tdap Vaccine (BOOSTRIX/ADACEL) 11/18/2017 Social History Tobacco Use Types Packs/Day Years Used Date Smoking Tobacco: Never Assessed Comments Unknown Sex and Gender Information Value Date Recorded Sex Assigned at Not on file Legal Sex Female 1:04 AM EST Gender Identity Not on file Sexual Orientation Not on file Last Filed Vital Signs Vital Sign Reading Time Taken Comments Blood Pressure - - Pulse - - Temperature - - Respiratory Rate - - Oxygen Saturation - - Inhaled Oxygen Concentration - - Weight 80.1 kg (176 lb 9.6 oz) 12/13/2020 12:00 AM EST Legacy value: 176.6 lbs; Method: With Clothes; With Shoes Height 173.4 cm (5' 8.25 ) 10/04/2019 1 2:00 AM EST Legacy value: 68.25; Method: With Shoes Body Mass Index 26.66 10/04/2019 12:00 AM EST Plan of Treatment Health Maintenance Due Date Last Done Comments Blood Pressure 1985 Depression Screening 1998 Pap Smear 2007 Cervical Cancer Screening 02/19/2025 HPV/Cotest 02/19/2025 02/20/2020 COVID-19 Vaccine (1 - 2024-2 6 season) 2025 Influenza Vaccine (#1) 2025 1, 09/02/2018, 08/11/2017 DTaP,Tdap,and Td Vaccines (2 - Td or Tdap) 11/18/2027 11/18/2017 Hepatitis C Screening Completed 02/15/2017 Meningococcal B Vaccines Aged Out No longer eligible based on patient's age to complete this topic Meningococcal Vaccines Aged Out No lo nger eligible based on patient's age to complete this topic Pneumococcal Vaccine Aged Out No long er eligible based on patient's age to complete this topic Procedures Procedure Name Priority Date/Time Associated Diagnosis Comments HPV MRNA E6/E7 (HIGH RISK) Routine 02/20/2020 11:37 AM EDT from Last 3 Months or Most Recently Relevant to Health Maintenance Results * HPV MRNA E6/E7 (HIGH RISK) (02/20/2020 11:37 AM EDT) [facility] HPV MRNA E6/E7 (CONVERSION) Test.............R esult.......Refere vae Range/Units ----.............- -----.......------ HPV mRNA E6/E7........Not Detected....Not Detected This test was performed using the APTIMA HPV Assay ([employer] This assay detects E6/E7 viral messenger RNA (mRNA) from 14 high-risk HPV types (16,18,31,33,35,39 ,45,51,52,56,58,59 ,66,68). The analytical performance characteristics of this assay have been determined by [employer]. The modifications have not been cleared or approved by the FDA. This assay has been validated pursuant to the CLIA regulations and is used for clinical purposes. THIS TEST WAS PERFORMED AT: [employer] [address] [place], [place].[address] JORGE L ADAMS MD CONVERSION FROM [facility] 02/20/2020 11:3 7 AM EDT 02/25/2020 10:04 AM EDT Lenka Mock PROJECT COACH LAB BLOOD ORDERABLES Final Res ult CONVERSION FROM [facility] from Last 3 Months or Most Recently Relevant to Health Maintenance Care Teams Pocket Operator Relationship Specialty Start Date End Date Swetha Clarke MD [address] [place] [address] Maternal and Medicine 10/08/17 Pushpa Tidwell, TASNEEM [address] [place] [address] 04/18/19 Sylvain Mccollum DO [address] [facility] [address] [place] [address] Obstetrics and Gynecology 02/14/21 Brandon Woods MD [address] [place] [address] Cardiology 04/15/24 Paige Mary MD [address] [place] [address] Internal Medicine 10/08/17 Bairon Martinez MD [address] [facility] [address] [place] [address] Dermatology 02/14/21 Laura Flynn NP [address] [place] [address] Nurse Practitioner 10/08/17 Lenka Mock NP [address] [place] [address] Nurse Practitioner 10/08/17 Tenisha Samuels DO [address] [facility] [address] [place] [address] Obstetrics and Gynecology 02/14/21
--- OUTSIDE RECORDS SUMMARY | 2025-11-13 18:33 | XMS_ITS | Encounter Summary ---
Author Organization [employer] Address [address] [facility] 7t [place] [address] Care Team Providers Care Tonger Name Role Phone Mundo [facility] Primary Care Provider [phone] Encounter Details Date Type Department Care Team ([facility] st Contact Info) Description 12/06/2024 Orders Only [facility] ADULT DENTAL [address] [place] [address] Topete-MalikWinter khan, DDS [address] [place] [address] Social History Tobacco Use Types Packs/Day Years [...] documented as of this encounter Care Teams Tonger Relationship Specialty Start Date End Date Rehana Flower FNP [address] [place] [address] PCP - General Family Medicine 07/09/22 documented as of this encounter
--- OUTSIDE RECORDS SUMMARY | 2025-11-13 18:33 | XMS_ITS | Encounter Summary ---
Author Organization [employer] Address [address] [facility] [address]t [place] [address] Care Team Providers Care Campground Caretaker Name Role Phone Mundo [facility] Primary Care Provider [phone] Encounter Details Date Type Department Care Team ([facility] st Contact Info) Description 10/30/2024 Orders Only [facility] ADULT DENTAL [address] [place] [address] Topete-MalikWinter khan, DDS [address] [place] [address] Social History Tobacco Use Types Packs/Day Years [...] documented as of this encounter Care Teams Campground Caretaker Relationship Specialty Start Date End Date Rehana Flower FNP [address] [place] [address] PCP - General Family Medicine 07/09/22 documented as of this encounter
--- OUTSIDE RECORDS SUMMARY | 2025-11-13 18:33 | XMS_ITS | Encounter Summary ---
Author Organization [employer] Address [address] [facility] [place] [address] Care Team Providers Care Application Assistant Name Role Phone [facility] Primary Care Provider [phone] Reason for Visit * Reason Onset Date Comments Med Refill 05/06/2024 Encounter Details Date Type Department Care Team (Late st Contact Info) Description 05/06/[address] [facility] [address] [place] [address] [facility] [address] [place] [address] Dyspepsia Social History Tobacco Use Types Packs/Day [...] documented as of this encounter Care Teams Application Assistant Relationship Specialty Start Date End Date Rehana Flower FNP [address] [place] [address] PCP - General Family Medicine 07/09/22 documented as of this encounter
--- OUTSIDE RECORDS SUMMARY | 2025-11-13 18:33 | XMS_ITS | Encounter Summary ---
Author Organization [employer] Address [address] [facility] 7 [place] [address] Care Team Providers Care Green Building Architect Name Role Phone Mundo [facility] Primary Care Provider [phone] Encounter Details Date Type Department Care Team ([facility] st Contact Info) Description 10/29/2025 Orders Only [facility] ADULT DENTAL [address] [place] [address] Topete-MalikWinter khan, DDS [address] [place] [address] Social History Tobacco Use Types Packs/Day Years [...] documented as of this encounter Care Teams Green Building Architect Relationship Specialty Start Date End Date Rehana Flower FNP [address] [place] [address] PCP - General Family Medicine 07/09/22 documented as of this encounter
--- OUTSIDE RECORDS SUMMARY | 2025-11-13 18:33 | XMS_ITS | Encounter Summary ---
Author Organization [employer] Address [address] [address] Care Team Providers Care Nnp Name Role Phone [facility] Primary Care Provider [phone] Reason for Visit * Reason Onset Date Comments Referral 06/16/2023 Results 06/16/2023 Encounter Details Date Type Department Care Team (Late st Contact Info) Description 06/16/2023 Telephone [facility] [address] [place] [address] [facility] [address] [place] [address] Referral; Results Social History Tobacco Use Types [...] is okay if its far distance like [place] for example . Pt is also requesting to speak with pcp regarding a surgery she had on 06/03/23 at [facility] . documented in this encounter Plan of Treatment Not on file documented as of this encounter Visit Diagnoses Not on filedocumented in this encounter Additional Health Concerns Assessment Noted Time PHQ-9 Depression Total Score: 0 11/24/19 9:40 AM EST documented as of this encounter Care Teams Nnp Relationship Specialty Start Date End Date Rehana Flower FNP [address] [place] [address] PCP - General Family Medicine 07/09/22 documented as of this encounter
--- OUTSIDE RECORDS SUMMARY | 2025-11-13 18:33 | XMS_ITS | Clinical Summary ---
Author Organization [facility] Address [address] [place] [address] Phone Care Team Providers Care Cheese Cutter Name Role Phone Pcp, Unknown Primary Care [...] Assessment & Plan (01/03/2016 3:58 PM EST): EDITORIAL PROJECT MANAGER to remove implant at next available visit [...] PM EST): As above - referral to FOREST RESOURCES PROFESSOR for h/o bicornuate uterus and fertility counseling Bicornuate uterus 11/22/2012 Overview (01/05/2015): Bicornuate uterus Assessment & Plan (12/16/2015 4:03 PM EST): FU with FOREST RESOURCES PROFESSOR for fertility counseling and removal of nexplanon. Pre-eclampsia 10/31/2012 Overview (01/05/2015): Pre-eclampsia Assessment & Plan (12/16/2015 4:01 PM EST): Will aim to control BP in the setting of patient aiming to get again. Hypertensive disorder 10/31/2012 Overview (01/05/2015): HTN - Hypertension Assessment & Plan (01/03/2016 3:56 PM EST): She will switch to labetolol and FU with EDITORIAL PROJECT MANAGER at next visit Assessment & Plan (12/16/2015 4:02 PM EST): Change Lisinopril and HCTZ to HCTZ and Labetolol as patient will aim to get in the next few months - aim to repeat BP in next few weeks. Check K today. Immunizations Immunization Administration Dates Next Due DTaP, unspecified formulation 08/07/2009 [id number] FORMULATION 09/23/2009 Hepatitis A, Adult 06/10/2015 Hepatitis [...] Yrs) Completed 05/22/2016 HEPATITIS C SCREENING Completed 06/18/2016 , 06/18/2016, 06/18/2016 HIV ONE-TIME SCREENING (18-65 YEARS) Completed 06/18/2016, [...] this topic Medical Devices Implanted Type Area General Accountant Device Identifier Shelf Expiration Date Model / Serial / Lot Nexplanon Control Description:Nexplanon implan table control device. Safe to 3T per [employer] Procedures Procedure Name Priority Date/Time Associated Diagnosis Comments HEPATITIS C ANTIBODY, QUALITATIVE Routine 06/18/2016 3:50 PM EDT Female infertility POTASSIUM Routine 12/16/2015 2:15 PM EST Essential hypertension PAP TEST Routine 12/14/2014 12:00 AM EST from Last 3 Months or Most Recently Relevant to Health Maintenance Results * Hepatitis C antibody, qualitative (06/18/2016 3:50 PM EDT) HCV ANTIBODY Negative Negative [facility] DEPARTMENT OF PATHOLOGY Comment:Antibodies to HCV no t detected. Does not exclude the possibility of exposure to HCV. 06/18/2016 3:50 PM EDT 06/18/2016 5:35 PM EDT us Jaison Mckeon MD LAB BLOOD BKR ORDERABLES Final Result Performing Organization Address City/[facility]/ZIP Co de Phone Number [facility] DEPARTMENT OF PATHOLOGY [address] [place] [address] * Potassium (12/16/2015 2:15 PM EST) Potassium 4.1 3.4 - 5.0 mmol/L [facility] 12/16/2015 2:15 PM EST 12/16/2015 2:19 PM EST Comment:CHC SPECIMEN Narrative Resulting Agency Comment [facility], [address] [place] [address]. [facility], [address] [place] [address]. us Dionne Staton MD, MPH LAB BLOOD BKR ORDERABLES F inal Result [address] [address] * Pap Smear (12/14/2014 12:00 AM EST) 12/14/2014 Narrative [facility] - 01/09/2015 8:10 AM EST Accession Number: [id number] Report Status: Final Type: Cytology Cytology Report: [id number] [place] [address] FOREST RESOURCES PROFESSOR Cytology Report Patient Name: VENITA VALENTINE : 1985 (Age: 29) Sex: F Institution: [facility] Location: [place] [address] Date of Collection: 12/14/2014 Date of Reported: 01/09/2015 08:10 Results to: Dionne Staton MD FINAL DIAGNOSIS A. CERVICAL, LIQUID BASED SPECIMEN: SPECIMEN ADEQUACY: Satisfactory for evaluation. INTERPRETATION: NEGATIVE FOR INTRAEPITHELIAL LESION OR MALIGNANCY. ADDITIONAL INFORMATION: This specimen was prescreened using the [employer] System. Electronically Signed Out By: ELIAN [...] Staton MD, MPH CYTOLOGY ORDERABLES [place] [address], [facility] from Last 3 Months or Most Recently Relevant to Health Maintenance [place] [address] [place] [address] [facility] Advance Directives For more information, please contact: [phone] (9AM - 5PM [facility], Wednesday-Wednesday) Documents on File Type Date Recorded Patient Belt Knife Feeder Expl anation Advance Directive - Non Epic LMR 08/10/2009 12:00 AM Care Teams Cheese Cutter Relationship Specialty Start Date End Date Pcp, Unknown PCP - General 06/30/18 Additional Source Comments The information contained in this document represents components of the legal health record. It is not the complete legal health record.[facility]
== END 2025-11-13 15:44 | disposition home or self-care (01) ==
LOC: HO.HOS 14:59
PROVIDERS: PCP Registered Nurse; Visit Provider Orthopaedic Surgery
DX: G56.03 Carpal tunnel syndrome, bilateral upper limbs (principal)
CPT/HCPCS: 99204